=== PATIENT | female | born 1965 | race Caucasian/White ===

== ENCOUNTER → 2016-11-24 | Day surgery (SDC) | payer OTHER ==
[~2016-11-24] MED LIST: LACTATED RINGERS 1,000 ML IV ONE; SODIUM CHLORIDE 0.9% 250 ML in EMPTY BAG 1 BAG IV PRN; SODIUM CHLORIDE 0.9% 500 ML in EMPTY BAG 1 BAG IV PRN
[2016-11-24 11:04] LABS: Basophils # (A) 0.1 k/uL (0-0.2); Basophils % (A) 1 %; CH 33.4; CHCM 33.4; Eosinophils # (A) 0.3 k/uL (0-0.7); Eosinophils % (A) 5 %; HDW 2.73; HGB 17.4 gm/dL (11.4-16.0); Luc # (Auto) 0.13; Luc % (Auto) 2; Lymphocytes # (A) 2.7 k/uL (1.0-4.8); Lymphocytes % (A) 44 %; MCHC 32.9 g/dL (31.0-37.0); MCV 100.5 fL (80.0-100.0); Mean Platelet Volume 7.5; Monocytes # (A) 0.3 k/uL (0-1.0); Monocytes % (A) 4 %; Neutrophils # (A) 2.7 k/uL (1.3-7.7); Neutrophils % (A) 44 %; RBC 5.28 m/uL (3.80-5.40); RDW 13.6 % (11.5-15.5); WBC 6.1 k/uL (3.8-10.6); WBC (Perox) 6.19
[2016-11-24 11:16] LABS: ALT 55 U/L (9-52); AST 34 U/L (14-36); Alkaline Phosphatase 166 U/L (38-126); Anion Gap 10 mmol/L; Blood Urea Nitrogen 10 mg/dL (7-17); Calcium 11.8 mg/dL (8.4-10.2); Carbon Dioxide 31 mmol/L (22-30); Chloride 105 mmol/L (98-107); Glucose 98 mg/dL (74-99); Non-African American GFR(MDRD) >60 (>60 ml/min/1.73 sqM); Potassium 4.6 mmol/L (3.5-5.1); Sodium 146 mmol/L (137-145); Total Bilirubin 0.8 mg/dL (0.2-1.3); Total Protein 8.2 g/dL (6.3-8.2)
[2016-11-24 11:45] VITALS: RESP 16; TEMP 98.2
[2016-11-24 12:05] VITALS: BP 142/82; PULSE 85
--- NOTE | 2016-11-24 12:15 | P.PCN ---
Date of Procedure: 11/24/16 Preoperative Diagnosis: r/o multiple sclerosis Postoperative Diagnosis: same Anesthesia: local Surgeon: Reginaldo Cerda Pathology: none sent Condition: stable Disposition: PACU Description of Procedure: Patient was seen and examined in procedure room, history and physical completed. Indication: 51-year-old female referred by Dr. Stock for lumbar puncture due to concern for white matter changes. Patient denies any signs/symptoms of hydrocephalus and there are no fely neurologic signs or deficits. The patient was seen and identified in the preoperative area. Risks, benefits, complications, and alternatives were discussed with the patient, including but not limited to bleeding, infection, nerve damage, and headache. The patient agreed to proceed with the procedure and signed the informed consent after all questions were answered. IV was started, and vital signs were stable. The area was prepped and draped in the usual sterile fashion and localized with 1% lidocaine. Using landmarks, a 25-gauge 3.5-inch spinal needle was inserted in the L3-L4 interspace. The stylet was removed and there was free flow of CSF. 4cc of clear fluid was collected in each of 4 tubes and sent for studies as per Dr. Stock's orders. COMPLICATIONS: The patient tolerated the procedure well. There was minimal blood loss and no signs of hematoma.
[2016-11-24 14:20] LABS: ALT 54 U/L (9-52); AST 32 U/L (14-36)
[2016-11-24 14:23] LABS: Rheumatoid Factor, Qnt <9 IU/mL (<12)
[2016-11-24 14:36] LABS: Glucose,CSF 60 mg/dL (40-70)
[2016-11-24 15:35] LABS: Appearance,CSF Clear
[2016-11-24 20:57] LABS: Treponemal Ab Non-Reactive (Non-Reactive)
[2016-11-24 21:17] LABS: ANA w/Reflex to Titer NEGATIVE (NEGATIVE)
[2016-11-25 05:30] LABS: Lyme Antibodies Total(IgG/IgM) 0.13 (<0.90)
[2016-11-25 14:40] LABS: Immunoglobulin G 827 mg/dL (700 - 1600)
[2016-11-27 07:55] LABS: Lyme Specimen Source Not Provided
== END ==
LOC: PROCWHC3 11:28
PROVIDERS: ATTEND Psychiatry & Neurology Neurology
DX: R20.2 Paresthesia of skin (principal); R41.3 Other amnesia; R42 Dizziness and giddiness; R26.81 Unsteadiness on feet; E03.9 Hypothyroidism, unspecified; F41.9 Anxiety disorder, unspecified; J45.909 Unspecified asthma, uncomplicated; Z79.899 Other long term (current) drug therapy; Z88.8 Allergy status to other drugs, medicaments and biological substances
CPT/HCPCS: 36415; 62270; 80053; 82040; 82042; 82164; 82784; 82945; 83873; 83916; 84157; 84439; 84443; 84450; 84460; 85025; 85613; 85730; 85732; 86038; 86225; 86235; 86431; 86592; 86618; 86780; 87476; 88108; 89050; 96360; 96361

== ENCOUNTER → 2016-11-24 | Outpatient (CLI) | payer OTHER ==
--- NOTE | 2016-11-24 11:26 | XR ---
EXAMINATION TYPE: XR knee complete bilateral DATE OF EXAM: 11/24/2016 11:20 AM COMPARISON: NONE HISTORY: 51-year-old female arthritis, hyperthyroid, bilateral knee pain for months TECHNIQUE: 3 views each knee FINDINGS: There is mild narrowing of medial compartment joint space in the right knee. Extensor mechanisms are intact. No significant knee joint effusion on either side. There is a bone is land within the left medial femoral condyle incidentally noted. No acute fracture or dislocation. IMPRESSION: The right knee medial compartment joint space appears mildly narrowed. This could be better evaluated with an AP weightbearing view. Otherwise, no joint effusion or acute osseous abnormality seen.
== END | disposition home or self-care (01) ==
LOC: LABWHC1 10:41
PROVIDERS: ATTEND Family Medicine
DX: M17.11 Unilateral primary osteoarthritis, right knee (principal); E03.9 Hypothyroidism, unspecified

== ENCOUNTER 2017-03-02 17:57 | Inpatient (IN) | payer OTHER ==
[2017-03-02] MEDS ORDERED: SODIUM CHLORIDE 0.9% 1,000 ML IV STA (18:59)
[2017-03-02] MEDS ORDERED: MORPHINE SULFATE 2 MG/ML SYRINGE IVP STA (18:59)
[2017-03-02] MEDS ORDERED: ONDANSETRON 4 MG/2 ML VIAL IVP STA (18:59)
[2017-03-02] MEDS ORDERED: RX INFO: IV CONTRAST WAS GIVEN 1 EACH MISC MISCELLANE PRN (19:00)
--- NOTE | 2017-03-02 19:01 | ED ---
Abdominal Pain HPI <Sky Talamantes - Last Filed: 03/02/17 21:59> - General Source: patient, RN notes reviewed Mode of arrival: ambulatory Limitations: no limitations <Lili Hurtado - Last Filed: 03/02/17 22:08> - General Chief Complaint: Abdominal Pain Stated Complaint: Hernia Time Seen by Provider: 03/02/17 18:31 - History of Present Illness Initial Comments: Patient is a 51-year-old female with chief complaint of epigastric abdominal pain over her previous hernia site. Patient states she's been having this pain off and on for a year. She reports that the pain is became progressively worse over the past week. She states it is tender to palpation. She states that she can feel the hernia bulge whenever she is doing a sit up motion. She states that she thinks that is difficult to return. Patient denies any fever or chills or changes in urination or bowel movements. She reports that she feels nauseated but no vomiting. She states that she also has had some intermittent chest pain. She has a history of COPD. (Lili Hurtado) - Related Data Home Medications Medication Instructions Recorded Confirmed Albuterol Nebulized [Ventolin 2.5 mg INHALATION RT-Q4H PRN 04/21/16 03/02/17 Nebulized] Albuterol Inhaler [Ventolin Hfa 2 puff INHALATION RT-Q6H PRN 03/02/17 03/02/17 Inhaler] Desvenlafaxine Succinate [Pristiq] 50 mg PO DAILY 03/02/17 03/02/17 Levothyroxine Sodium [Synthroid] 88 mcg PO DAILY 03/02/17 03/02/17 Allergies Allergy/AdvReac Type Severity Reaction Status Date / Time prednisolone Allergy Swelling Verified 03/02/17 19:02 Review of Systems ROS Other: All systems not noted in ROS Statement are negative. <Sky Talamantes - Last Filed: 03/02/17 21:59> ROS Other: All systems not noted in ROS Statement are negative. <Lili Hurtado - Last Filed: 03/02/17 22:08> ROS Statement: Those systems with pertinent positive or pertinent negative responses have been documented in the HPI. 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 as a child Past Anesthesia/Blood Transfusion Reactions: No Reported Reaction Additional Past Anesthesia/Blood Transfusion Reaction / Comment(s): never had a blood transfusion, unknown family hx.-pt. adopted Past Psychological History: Anxiety, Depression Smoking Status: Current every day smoker Past Alcohol Use History: Rare Past Drug Use History: None Reported - Past Family History Mother Family Medical History: No Reported History Additional Family Medical History / Comment(s): Biological mother at age 33 y/o of brain aneuyrsm. Pt is adopted. <Lili Hurtado - Last Filed: 03/02/17 22:08> General Exam <Sky Talamantes - Last Filed: 03/02/17 21:59> Limitations: no limitations Head exam: Present: atraumatic, normocephalic, normal inspection Eye exam: Present: normal appearance, PERRL, EOMI. Absent: scleral icterus, conjunctival injection, periorbital swelling ENT exam: Present: normal exam, mucous membranes moist Neck exam: Present: normal inspection. Absent: tenderness, meningismus, lymphadenopathy Respiratory exam: Present: normal lung sounds bilaterally. Absent: respiratory distress, wheezes, rales, rhonchi, stridor Cardiovascular Exam: Present: regular rate, normal rhythm, normal heart sounds. Absent: systolic murmur, diastolic murmur, rubs, gallop, clicks GI/Abdominal exam: Present: soft, tenderness (Tenderness and epigastric and umbilical region. Evidence of scars from previous umbilical hernia surgery. No evidence of erythema. Hernia is palpable. It is somewhat reducible.), normal bowel sounds. Absent: distended, guarding, rebound, rigid Extremities exam: Present: normal inspection, full ROM, normal capillary refill. Absent: tenderness, pedal edema, joint swelling, calf tenderness Back exam: Present: normal inspection Neurological exam: Present: alert, oriented X3, CN II-XII intact Psychiatric exam: Present: normal affect, normal mood Skin exam: Present: warm, dry, intact, normal color. Absent: rash <Lili Hurtado - Last Filed: 03/02/17 22:08> - General Exam Comments Initial Comments: Pleasant 51-year-old female. No distress. (Lili Hurtado) Medical Decision Making - Lab Data Result diagrams: 03/02/17 19:25 03/02/17 19:25 <Sky Talamantes - Last Filed: 03/02/17 21:59> - Lab Data Result diagrams: 03/02/17 19:25 03/02/17 19:25 - Radiology Data Radiology results: report reviewed <Lili Hurtado - Last Filed: 03/02/17 22:08> - Medical Decision Making Patient reevaluated by myself, Dr. Talamantes. Patient does have mild to moderate tenderness right upper quadrant. Case discussed with Dr. Bliss who recommends calling Dr. Perales. Case was discussed with Dr. Perales who will admit and requests ultrasound. IV antibiotics will be started. (Sky Talamantes) Patient is a 51-year-old female chief complaint of right upper quadrant epigastric and umbilical abdominal pain for approximately one week. She reports that she's had umbilical pain for many months but has been much worse over the past few days. Patient lab work was reviewed. She does have a mildly elevated lipase. Patient also has some significant right upper quadrant tenderness. CT shows.: Fluid. The second patient does not have a fever does not meet sepsis criteria. Patient was started on IV antibiotics and right upper quadrant ultrasound obtained. Patient will be admitted to Dr. Perales for surgical consult. Likely patient has an acute cholecystitis. Patient understands treatment plan. (Lili Hurtado) - Lab Data Lab Results 03/02/17 03/02/17 03/02/17 Range/Units 19:25 19:25 19:25 WBC 8.4 (3.8-10.6) k/uL RBC 4.81 (3.80-5.40) m/uL Hgb 16.2 H (11.4-16.0) gm/dL Hct 47.9 H (34.0-46.0) % MCV 99.7 (80.0-100.0) fL MCH 33.6 (25.0-35.0) pg MCHC 33.7 (31.0-37.0) g/dL RDW 14.0 (11.5-15.5) % Plt Count 224 (150-450) k/uL Neutrophils % 66 % Lymphocytes % 25 % Monocytes % 4 % Eosinophils % 3 % Basophils % 2 % Neutrophils # 5.6 (1.3-7.7) k/uL Lymphocytes # 2.1 (1.0-4.8) k/uL Monocytes # 0.3 (0-1.0) k/uL Eosinophils # 0.2 (0-0.7) k/uL Basophils # 0.1 (0-0.2) k/uL Sodium 141 (137-145) mmol/L Potassium 4.5 (3.5-5.1) mmol/L Chloride 108 H (98-107) mmol/L Carbon Dioxide 26 (22-30) mmol/L Anion Gap 7 mmol/L BUN 12 (7-17) mg/dL Creatinine 0.66 (0.52-1.04) mg/dL Est GFR (MDRD) Af Amer >60 (>60 ml/min/1.73 sqM) Est GFR (MDRD) Non-Af >60 (>60 ml/min/1.73 sqM) Glucose 94 (74-99) mg/dL Calcium 11.8 H (8.4-10.2) mg/dL Total Bilirubin 0.8 (0.2-1.3) mg/dL AST 40 H (14-36) U/L ALT 39 (9-52) U/L Alkaline Phosphatase 170 H (38-126) U/L Total Creatine Kinase 36 (30-135) U/L CK-MB (CK-2) 0.9 (0.0-2.4) ng/mL CK-MB (CK-2) Rel Index 2.5 Troponin I <0.012 (0.000-0.034) ng/mL Total Protein 7.2 (6.3-8.2) g/dL Albumin 4.1 (3.5-5.0) g/dL Amylase 89 (30-110) U/L Lipase 359 H (23-300) U/L Urine Color Urine Appearance (Clear) Urine pH (5.0-8.0) Ur Specific [place] (1.001-1.035) Urine Protein (Negative) Urine Glucose (UA) (Negative) Urine Ketones (Negative) Urine Blood (Negative) Urine Nitrite (Negative) Urine Bilirubin (Negative) Urine Urobilinogen (<2.0) mg/dL Ur Leukocyte Esterase (Negative) 03/02/17 Range/Units 20:10 WBC (3.8-10.6) k/uL RBC (3.80-5.40) m/uL Hgb (11.4-16.0) gm/dL Hct (34.0-46.0) % MCV (80.0-100.0) fL MCH (25.0-35.0) pg MCHC (31.0-37.0) g/dL RDW (11.5-15.5) % Plt Count (150-450) k/uL Neutrophils % % Lymphocytes % % Monocytes % % Eosinophils % % Basophils % % Neutrophils # (1.3-7.7) k/uL Lymphocytes # (1.0-4.8) k/uL Monocytes # (0-1.0) k/uL Eosinophils # (0-0.7) k/uL Basophils # (0-0.2) k/uL Sodium (137-145) mmol/L Potassium (3.5-5.1) mmol/L Chloride (98-107) mmol/L Carbon Dioxide (22-30) mmol/L Anion Gap mmol/L BUN (7-17) mg/dL Creatinine (0.52-1.04) mg/dL Est GFR (MDRD) Af Amer (>60 ml/min/1.73 sqM) Est GFR (MDRD) Non-Af (>60 ml/min/1.73 sqM) Glucose (74-99) mg/dL Calcium (8.4-10.2) mg/dL Total Bilirubin (0.2-1.3) mg/dL AST (14-36) U/L ALT (9-52) U/L Alkaline Phosphatase (38-126) U/L Total Creatine Kinase (30-135) U/L CK-MB (CK-2) (0.0-2.4) ng/mL CK-MB (CK-2) Rel Index Troponin I (0.000-0.034) ng/mL Total Protein (6.3-8.2) g/dL Albumin (3.5-5.0) g/dL Amylase (30-110) U/L Lipase (23-300) U/L Urine Color Light Yellow Urine Appearance Clear (Clear) Urine pH 6.5 (5.0-8.0) Ur Specific [place] 1.014 (1.001-1.035) Urine Protein Negative (Negative) Urine Glucose (UA) Negative (Negative) Urine Ketones Negative (Negative) Urine Blood Negative (Negative) Urine Nitrite Negative (Negative) Urine Bilirubin Negative (Negative) Urine Urobilinogen <2.0 (<2.0) mg/dL Ur Leukocyte Esterase Negative (Negative) 03/02/17 19:16 EKG shows normal sinus rhythm. Evidence of a right bundle-branch block. Ventricular rate 87 bpm. FL interval 1:30 milliseconds. QRS duration 122 ms. QT/QTc is 46/48 ms. No evidence of ST elevation or T-wave inversion. ( Lili Hurtado) - Radiology Data There is mild. Cholecystic fluid but could relate to cholecystitis. No dilated ducts. No evidence of renal stone or obstruction. The fluid around the gallbladder is new compared to old exam. Mild sigmoid diverticulosis without diverticulitis. (Lili Hurtado) Disposition <Sky Talamantes - Last Filed: 03/02/17 21:59> Time of Disposition: 22:07 <Lili Hurtado - Last Filed: 03/02/17 22:08> Clinical Impression: RUQ pain Disposition: ADMITTED IP TO THIS HOSP Condition: Stable
[2017-03-02 19:33] LABS: Basophils # (A) 0.1 k/uL (0-0.2); Basophils % (A) 2 %; CH 33.9; CHCM 34.2; Eosinophils # (A) 0.2 k/uL (0-0.7); Eosinophils % (A) 3 %; HCT 47.9 % (34.0-46.0); HGB 16.2 gm/dL (11.4-16.0); Luc # (Auto) 0.09; Luc % (Auto) 1; Lymphocytes # (A) 2.1 k/uL (1.0-4.8); Lymphocytes % (A) 25 %; MCH 33.6 pg (25.0-35.0); MCHC 33.7 g/dL (31.0-37.0); MCV 99.7 fL (80.0-100.0); Mean Platelet Volume 7.6; Monocytes # (A) 0.3 k/uL (0-1.0); Monocytes % (A) 4 %; Neutrophils # (A) 5.6 k/uL (1.3-7.7); Neutrophils % (A) 66 %; RBC 4.81 m/uL (3.80-5.40); WBC 8.4 k/uL (3.8-10.6)
--- NOTE | 2017-03-02 19:42 | XR ---
EXAMINATION TYPE: XR KUB DATE OF EXAM: 03/02/2017 7:36 PM COMPARISON: NONE HISTORY: Abdominal pain TECHNIQUE: 2 views FINDINGS: Bowel gas pattern is normal. There is no sign of intestinal obstruction or pneumoperitoneum . Fecal pattern is normal. IMPRESSION: Nonacute abdomen. No pathologic calcification.
[2017-03-02 19:43] LABS: ALT 39 U/L (9-52); AST 40 U/L (14-36); Alkaline Phosphatase 170 U/L (38-126); Amylase 89 U/L (30-110); Anion Gap 7 mmol/L; Blood Urea Nitrogen 12 mg/dL (7-17); Calcium 11.8 mg/dL (8.4-10.2); Carbon Dioxide 26 mmol/L (22-30); Chloride 108 mmol/L (98-107); Glucose 94 mg/dL (74-99); Non-African American GFR(MDRD) >60 (>60 ml/min/1.73 sqM); Potassium 4.5 mmol/L (3.5-5.1); Sodium 141 mmol/L (137-145); Total Bilirubin 0.8 mg/dL (0.2-1.3); Total Protein 7.2 g/dL (6.3-8.2)
--- NOTE | 2017-03-02 19:43 | XR ---
EXAMINATION TYPE: XR chest 2V DATE OF EXAM: 03/02/2017 7:36 PM COMPARISON: 03/15/2016 HISTORY: Cough TECHNIQUE: Frontal and lateral views of the chest are obtained. FINDINGS: There is no heart failure nor confluent pneumonic infiltrate. There are sternal wires. Cos tophrenic angles are clear. Bony thorax appears intact. IMPRESSION: No active cardiopulmonary disease. There is clearing of atelectasis in the left lung com pared to old exam.
[2017-03-02 20:02] LABS: Creatine Kinase 36 U/L (30-135)
[2017-03-02 20:15] LABS: Creatine Kinase MB 0.9 ng/mL (0.0-2.4); Troponin I <0.012 ng/mL (0.000-0.034)
[2017-03-02 20:26] LABS: Appearance,Urine Clear (Clear); Bilirubin,Urine Negative (Negative); Glucose,Urine (UA) Negative (Negative); Ketones,Urine Negative (Negative); Leukocyte Esterase,Urine Negative (Negative); Nitrite,Urine Negative (Negative); PH, Urine 6.5 (5.0-8.0); Protein,Urine Negative (Negative); Specific Gravity,Urine 1.014 (1.001-1.035); UA Billing (MACRO vs. MICRO) CHEM; Urobilinogen,Urine <2.0 mg/dL (<2.0)
--- NOTE | 2017-03-02 20:40 | CT ---
EXAMINATION TYPE: CT abdomen pelvis w con DATE OF EXAM: 03/02/2017 8:08 PM COMPARISON: 10/07/2016 HISTORY: abdominal pain, hx of hernia CT DLP: 535.6 mGycm Automated exposure control for dose reduction was used. TECHNIQUE: Helical acquisition of images was performed from the lung bases through the pelvis. CONTRAST: Performed without Oral Contrast and with IV Contrast, patient injected with 100 mL of Omnipaque 300. FINDINGS: Lung bases are clear. There is no pleural effusion. There is a small amount of fluid around the gallb ladder. Liver spleen pancreas appear normal. Bile ducts are not dilated. There is no adrenal mass. Kidneys show satisfactory contrast opacification. There is no hydronephrosi s. There are multiple sigmoid diverticula. There is no evidence of appendicitis. Bladder distends smoothly. There is no evidence of a pelvic mass. Bony structures are intact.. IMPRESSION: THERE IS MILD PERICHOLECYSTIC FLUID BUT COULD RELATE TO CHOLECYSTITIS. NO DILATED DUCTS. NO EVIDENCE OF RENAL STONE OR OBSTRUCTION. THE FLUID AROUND THE GALLBLADDER IS NEW COMPARED TO OLD EXAM. MILD SIGMOID DIVERTICULOSIS WITHOUT SIGN OF DIVERTICULITIS.
[2017-03-02] MEDS ORDERED: PIPERACILLIN-TAZOBACTAM 3.375 GM in DEXTROSE/WATER 1 50ML.BAG IVPB STA (22:00)
[2017-03-02] MEDS ORDERED: NALOXONE 0.4 MG/ML 1 ML VIAL IV PRN (22:01)
[2017-03-02] MEDS: SODIUM CHLORIDE 0.9% 1,000 ML IV SCH (22:12)
[2017-03-02] MEDS: HYDROmorphone 1 MG/ML 1 ML SYRINGE IV PRN (22:14)
--- NOTE | 2017-03-02 22:44 | US ---
EXAMINATION TYPE: US gallbladder DATE OF EXAM: 03/02/2017 10:32 PM COMPARISON: CT in PACS CLINICAL HISTORY: Pain. EXAM MEASUREMENTS: Liver Length: 15.8 cm Gallbladder Wall: 0.5 cm CBD: 0.4 cm Right Kidney: 10.3 x 3.9 x 4.1 cm Pancreas: Obscured by bowel gas Liver: wnl Gallbladder: Wall is thickened with some pericholecystic fluid visualized. There is a stone visualiz ed within the neck of the gallbladder measuring 0.5 cm. There is also a small amount of possible slud ge visualized on image 39 Evidence for sonographic Garcia's sign: No CBD: wnl Right Kidney: No hydronephrosis or masses seen IMPRESSION: There is gallbladder wall thickening consistent with cholecystitis. Small gallstones. No dilated ducts.
[2017-03-03] MEDS: HYDROmorphone 1 MG/ML 1 ML SYRINGE IV PRN ×3 (05:34→19:18)
[2017-03-03] MEDS: LEVOTHYROXINE 88 MCG TAB PO SCH (05:53)
[2017-03-03] MEDS: DESVENLAFAXINE SUCCINATE 50 MG TAB.ER.24H PO SCH (08:24)
[2017-03-03 08:36] LABS: Basophils # (A) 0.1 k/uL (0-0.2); Basophils % (A) 0 %; CH 33.3; CHCM 32.4; Eosinophils # (A) 0.2 k/uL (0-0.7); Eosinophils % (A) 1 %; HGB 15.4 gm/dL (11.4-16.0); Luc # (Auto) 0.07; Luc % (Auto) 1; Lymphocytes # (A) 0.9 k/uL (1.0-4.8); Lymphocytes % (A) 6 %; MCH 33.2 pg (25.0-35.0); MCHC 32.1 g/dL (31.0-37.0); MCV 103.5 fL (80.0-100.0); Macrocytosis Slight; Mean Platelet Volume 7.5; Monocytes # (A) 0.3 k/uL (0-1.0); Monocytes % (A) 2 %; Neutrophils % (A) 90 %; RBC 4.64 m/uL (3.80-5.40); RDW 14.1 % (11.5-15.5); WBC 14.4 k/uL (3.8-10.6)
[2017-03-03 08:52] LABS: ALT 36 U/L (9-52); AST 20 U/L (14-36); Alkaline Phosphatase 176 U/L (38-126); Amylase 64 U/L (30-110); Anion Gap 7 mmol/L; Blood Urea Nitrogen 7 mg/dL (7-17); Calcium 10.5 mg/dL (8.4-10.2); Carbon Dioxide 27 mmol/L (22-30); Chloride 108 mmol/L (98-107); Glucose 142 mg/dL (74-99); Non-African American GFR(MDRD) >60 (>60 ml/min/1.73 sqM); Potassium 4.6 mmol/L (3.5-5.1); Sodium 142 mmol/L (137-145); Total Bilirubin 0.7 mg/dL (0.2-1.3); Total Protein 6.8 g/dL (6.3-8.2)
[2017-03-03] MEDS: PANTOPRAZOLE 40 MG/10 ML VIAL IV SCH (09:09)
[2017-03-03] MEDS: ALBUTEROL NEBULIZED 2.5 MG/3 ML INHALATION PRN ×2 (13:57→22:02)
--- NOTE | 2017-03-03 14:11 | P.PN ---
Progress Note - Text Patient was unavailable for medical consultation, issues in the OR for laparoscopic cholecystectomy. I will evaluate her as soon as possible and will remain in contact with the nurses regarding her medical status.
--- NOTE | 2017-03-03 14:16 | P.GSHP ---
History of Present Illness H&P Date: 03/03/17 Chief Complaint: Acute cholecystitis Patient came to the ER yesterday with complaints of upper abdominal pain. This is associated with anorexia nausea and intermittent vomiting. She was found have elevated lipase and elevated liver enzymes these are improved today. Her white blood cell count is elevated today. She has a low-grade fever. She is slightly tachycardic. She had a chest x-ray performed that was normal. She doesn't history of underlying COPD and has a home nebulizer. She has had a chronic cough with some sputum production. She still smokes. No history of pancreatitis in the past. Denies any change in the color of her skin urine and stool. She does point to a small incisional hernia in the supraumbilical location and states that she has chronic discomfort there. She admits that the pain she is extrinsic now was more diffuse in the upper abdomen. No diarrhea or constipation. No rectal bleeding or melena. CAT scan was performed which shows a slightly indurated incisional hernia in the supraumbilical location this is small with a defect measuring only about 1 cm in size or so. The gallbladder itself appears inflamed with some pericholecystic fluid. An ultrasound was also performed which showed gallstones and also a thickened gallbladder wall. Pain is nonradiating. 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 as a child Past Anesthesia/Blood Transfusion Reactions: No Reported Reaction Additional Past Anesthesia/Blood Transfusion Reaction / Comment(s): never had a blood transfusion, unknown family hx.-pt. adopted Past Psychological History: Anxiety, Depression Smoking Status: Current every day smoker Past Alcohol Use History: Rare Past Drug Use History: None Reported - Past Family History Mother Family Medical History: No Reported History Additional Family Medical History / Comment(s): Biological mother at age 33 y/o of brain aneuyrsm. Pt is adopted. Medications and Allergies Home Medications Medication Instructions Recorded Confirmed Type Albuterol Nebulized [Ventolin 2.5 mg INHALATION RT-Q4H PRN 04/21/16 03/02/17 History Nebulized] Albuterol Inhaler [Ventolin Hfa 2 puff INHALATION RT-Q6H PRN 03/02/17 03/02/17 History Inhaler] Desvenlafaxine Succinate [Pristiq] 50 mg PO DAILY 03/02/17 03/02/17 History Levothyroxine Sodium [Synthroid] 88 mcg PO DAILY 03/02/17 03/02/17 History Allergies Allergy/AdvReac Type Severity Reaction Status Date / Time prednisolone Allergy Swelling Verified 03/02/17 19:02 Surgical - Exam Vital Signs Temp Pulse Resp BP Pulse Ox 97.7 F 105 H 18 170/83 97 03/02/17 18:10 03/02/17 18:10 03/02/17 18:10 03/02/17 18:10 03/02/17 18:10 Physical exam: General: Well-developed, well-nourished HEENT: Normocephalic, sclerae nonicteric Abdomen: Slightly obese, nondistended, small reducible supra umbilical incisional hernia, moderate upper abdominal tenderness Extremities: No edema Neuro: Alert and oriented Results - Labs 03/03/17 08:21 03/03/17 08:21 Abnormal Lab Results - Last 24 Hours (Table) 03/03/17 03/03/17 Range/Units 08:21 08:21 WBC 14.4 H (3.8-10.6) k/uL Hct 48.0 H (34.0-46.0) % MCV 103.5 H (80.0-100.0) fL Neutrophils # 13.0 H (1.3-7.7) k/uL Lymphocytes # 0.9 L (1.0-4.8) k/uL Chloride 108 H (98-107) mmol/L Glucose 142 H (74-99) mg/dL Calcium 10.5 H (8.4-10.2) mg/dL Alkaline Phosphatase 176 H (38-126) U/L Diabetes panel 03/03/17 Range/Units 08:21 Sodium 142 (137-145) mmol/L Potassium 4.6 (3.5-5.1) mmol/L Chloride 108 H (98-107) mmol/L Carbon Dioxide 27 (22-30) mmol/L BUN 7 (7-17) mg/dL Creatinine 0.67 (0.52-1.04) mg/dL Glucose 142 H (74-99) mg/dL Calcium 10.5 H (8.4-10.2) mg/dL AST 20 (14-36) U/L ALT 36 (9-52) U/L Alkaline Phosphatase 176 H (38-126) U/L Total Protein 6.8 (6.3-8.2) g/dL Albumin 3.9 (3.5-5.0) g/dL Calcium panel 03/03/17 Range/Units 08:21 Calcium 10.5 H (8.4-10.2) mg/dL Albumin 3.9 (3.5-5.0) g/dL Pituitary panel 03/03/17 Range/Units 08:21 Sodium 142 (137-145) mmol/L Potassium 4.6 (3.5-5.1) mmol/L Chloride 108 H (98-107) mmol/L Carbon Dioxide 27 (22-30) mmol/L BUN 7 (7-17) mg/dL Creatinine 0.67 (0.52-1.04) mg/dL Glucose 142 H (74-99) mg/dL Calcium 10.5 H (8.4-10.2) mg/dL Adrenal panel 03/03/17 Range/Units 08:21 Sodium 142 (137-145) mmol/L Potassium 4.6 (3.5-5.1) mmol/L Chloride 108 H (98-107) mmol/L Carbon Dioxide 27 (22-30) mmol/L BUN 7 (7-17) mg/dL Creatinine 0.67 (0.52-1.04) mg/dL Glucose 142 H (74-99) mg/dL Calcium 10.5 H (8.4-10.2) mg/dL Total Bilirubin 0.7 (0.2-1.3) mg/dL AST 20 (14-36) U/L ALT 36 (9-52) U/L Alkaline Phosphatase 176 H (38-126) U/L Total Protein 6.8 (6.3-8.2) g/dL Albumin 3.9 (3.5-5.0) g/dL Assessment and Plan (1) RUQ pain Narrative/Plan: Clinical scenario and the operative plans were discussed with the patient and her significant other heralded by phone. The patient does have a cough with sputum production however her chest x-ray appears clear. Her pain does seem worse today than yesterday and now she has leukocytosis. The risks of general anesthesia with her chronic cough and the potential for postoperative respiratory failure or postoperative ventilatory support was discussed. The additional risks of bleeding, infection, hernia recurrence, bile leak, retained common bile duct stone, common bile duct injury, conversion to an open procedure were discussed. She and her significant other both understand and wish to proceed. Status: Acute
[2017-03-03] MEDS ORDERED: IV FLUID CONTINUATION 1,000 ML IV ONE (14:20)
[2017-03-03] MEDS ORDERED: fentaNYL (PF) 50 MCG/ML 2 ML AMP ONE (14:24)
[2017-03-03] MEDS ORDERED: SUCCINYLCHOLINE CHLORIDE 100 MG/5 ML SYR IV ONE (14:24)
[2017-03-03] MEDS ORDERED: LIDOCAINE 1% INJ 10MG/ML (20 ML MDV) ONE (14:24)
[2017-03-03] MEDS ORDERED: MIDAZOLAM 2 MG/2 ML VIAL ONE (14:24)
[2017-03-03] MEDS ORDERED: PROPOFOL 10 MG/ML 20 ML VIAL IV ONE (14:24)
[2017-03-03] MEDS ORDERED: NEOSTIGMINE 1 MG/ML 10 ML VIAL ONE (14:24)
[2017-03-03] MEDS ORDERED: LACTATED RINGERS 1,000 ML IV ONE ×2 (14:24→16:23)
[2017-03-03] MEDS ORDERED: GLYCOPYRROLATE 0.2 MG/ML 2 ML VIAL ONE (14:24)
[2017-03-03] MEDS ORDERED: ROCURONIUM BROMIDE 10 MG/ML 10 ML VIAL IV ONE (14:24)
[2017-03-03] MEDS ORDERED: BUPIVACAIN-EPI 0.25%-1:200,000 30 ML VIAL SQ ONE ×2 (14:46)
--- NOTE | 2017-03-03 16:09 | P.PCN ---
Date of Procedure: 03/03/17 Procedure(s) Performed: PREOPERATIVE DIAGNOSIS: Incisional hernia, acute cholecystitis POSTOPERATIVE DIAGNOSIS: Same PROCEDURE: Laparoscopic cholecystectomy with repair incisional hernia SURGEON: Della EBL: Minimal see anesthesia record ANESTHESIA: Gen. COMPLICATIONS: None OPERATIVE PROCEDURE: The patient was brought and placed on the operating room table in the supine position. The patient was placed under general anesthesia at that time. The abdomen was prepped and draped in the usual sterile fashion. The previous supraumbilical horizontal incision was re-incised and extended somewhat. Dissection through the subcutaneous tissues took place using blunt dissection and cautery. The patient had a defect in the fascia with a small hernia sac present. The hernia sac was excised. The defect in the fascia measured approximately 6-7 mm in diameter. Through this defect a 5 mm trocar was advanced bluntly. Insufflation took place up to 15 mmHg. 2 additional 5 mm trochars were placed in the right upper quadrant under direct visualization. A 12 mm trocar was advanced into the epigastric incision site. The gallbladder did appear to be acutely inflamed with a thickened wall. The gallbladder was retracted superiorly and laterally. The peritoneum overlying the infundibulum was bluntly dissected. The patient's cystic duct was visualized. The junction between the cystic duct common and hepatic duct was identified. The cystic duct was then divided after placement of 3 12 mm clips on the patient's side and one on the specimen side. The cystic artery was identified and clipped as well. A small vessel was seen along the gallbladder fossa and clipped as well. The gallbladder was then removed from the liver bed using electrocautery. The gallbladder was then removed from the epigastric trocar site with an Endo Catch bag. The gallbladder fossa was irrigated with saline. There was no evidence of any bleeding or biliary drainage seen. The trochars were then removed. The fascia at the 12 millimeter site was closed using a [id number] 0 Vicryl stitch. The fascia at the incisional hernia site was closed using a [id number] 1 Ethibond stitch. The skin at all 4 sites was closed using a 4-0 Monocryl stitch. At the end of this procedure the sponge and needle counts were correct. DISPOSITION: Stable to the recovery room
[2017-03-03] MEDS: PIPERACILLIN-TAZOBACTAM 3.375 GM in DEXTROSE/WATER 1 50ML.BAG IVPB SCH ×2 (17:15→23:32)
[2017-03-03] MEDS: HYDROcodone/APAP 5-325MG 1 EACH TAB PO PRN ×2 (17:15→21:47)
[2017-03-03] MEDS: SODIUM CHLORIDE 0.9% 1,000 ML IV SCH ×2 (18:06→20:30)
[2017-03-03] MEDS: HEPARIN SODIUM,PORCINE 5,000 UNIT/ML 1 ML VIAL SQ SCH (23:32)
[2017-03-04] MEDS: HYDROcodone/APAP 5-325MG 1 EACH TAB PO PRN ×4 (03:15→21:00)
[2017-03-04] MEDS: SODIUM CHLORIDE 0.9% 1,000 ML IV SCH ×2 (03:17→14:58)
[2017-03-04] MEDS: ALBUTEROL NEBULIZED 2.5 MG/3 ML INHALATION PRN (07:14)
[2017-03-04 07:17] LABS: ALT 34 U/L (9-52); AST 25 U/L (14-36); Alkaline Phosphatase 128 U/L (38-126); Amylase 43 U/L (30-110); Anion Gap 8 mmol/L; Blood Urea Nitrogen 5 mg/dL (7-17); Calcium 10.5 mg/dL (8.4-10.2); Carbon Dioxide 25 mmol/L (22-30); Chloride 107 mmol/L (98-107); Glucose 93 mg/dL (74-99); Non-African American GFR(MDRD) >60 (>60 ml/min/1.73 sqM); Potassium 4.1 mmol/L (3.5-5.1); Sodium 140 mmol/L (137-145); Total Bilirubin 0.8 mg/dL (0.2-1.3); Total Protein 5.9 g/dL (6.3-8.2)
[2017-03-04] MEDS: LEVOTHYROXINE 88 MCG TAB PO SCH (07:38)
[2017-03-04 07:55] LABS: Basophils % (A) 1 %; CH 33.2; CHCM 33.1; Eosinophils # (A) 0.1 k/uL (0-0.7); Eosinophils % (A) 1 %; HCT 39.8 % (34.0-46.0); HDW 2.91; HGB 13.4 gm/dL (11.4-16.0); Luc # (Auto) 0.11; Luc % (Auto) 1; Lymphocytes # (A) 0.7 k/uL (1.0-4.8); Lymphocytes % (A) 8 %; MCH 34.1 pg (25.0-35.0); MCHC 33.7 g/dL (31.0-37.0); MCV 101.1 fL (80.0-100.0); Macrocytosis Slight; Mean Platelet Volume 7.8; Monocytes # (A) 0.4 k/uL (0-1.0); Monocytes % (A) 4 %; Neutrophils # (A) 7.2 k/uL (1.3-7.7); Neutrophils % (A) 85 %; RBC 3.94 m/uL (3.80-5.40); RDW 13.6 % (11.5-15.5); WBC 8.5 k/uL (3.8-10.6); WBC (Perox) 9.84
[2017-03-04 08:21] LABS: Manual Review Performed; RBC Morphology Normal
[2017-03-04] MEDS: HEPARIN SODIUM,PORCINE 5,000 UNIT/ML 1 ML VIAL SQ SCH ×2 (08:28→15:05)
[2017-03-04] MEDS: PIPERACILLIN-TAZOBACTAM 3.375 GM in DEXTROSE/WATER 1 50ML.BAG IVPB SCH ×2 (08:28→15:04)
[2017-03-04] MEDS: DESVENLAFAXINE SUCCINATE 50 MG TAB.ER.24H PO SCH (08:29)
[2017-03-04] MEDS: PANTOPRAZOLE 40 MG/10 ML VIAL IV SCH (08:29)
[2017-03-04] MEDS ORDERED: IPRATROPIUM-ALBUTEROL 3 ML NEB INHALATION SCH (12:00)
--- NOTE | 2017-03-04 12:30 | P.CNPUL ---
History of Present Illness Consult date: 03/04/17 Requesting physician: Sameer Bliss Reason for consult: COPD Chief complaint: Abdominal pain History of present illness: This is a 51-year-old female patient who follows with Dr. Bliss as her primary care physician. She has a history of fibromyalgia, hyperlipidemia, osteoarthritis, PFO that was repaired at age 6. She also has a history of chronic and ongoing tobacco dependence and chronic obstructive pulmonary disease. She is maintained on albuterol HFA and albuterol nebulized treatments. No maintenance medications. She presented here on 03/02/2017 with complaints of abdominal pain. She was found to have an incisional hernia from previous surgery and acute cholecystitis. She had undergone a laparoscopic cholecystectomy with repair of incisional hernia by Dr. Hull yesterday. She had been recovering well from the surgical standpoint however she had developed increasing shortness of breath, cough and congestion some expiratory wheezing. She needed increased encouragement regarding the use of the incentive spirometer. She had been refusing breathing treatments secondary to a headache this morning. She is seen today in consultation. She is awake and alert in no acute distress. She is maintaining O2 saturations in the low 90s on room air. Is currently on 2 L/m per nasal cannula with improved saturations. She's been afebrile. No leukocytosis. Hemoglobin is stable. Bicarb 25. Initial chest x- ray revealed no active cardiopulmonary disease. Review of Systems 14 point review of system was conducted. All negative other than as mentioned in HPI. 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 as a child Past Anesthesia/Blood Transfusion Reactions: No Reported Reaction Additional Past Anesthesia/Blood Transfusion Reaction / Comment(s): never had a blood transfusion, unknown family hx.-pt. adopted Past Psychological History: Anxiety, Depression Smoking Status: Current every day smoker Past Alcohol Use History: Rare Past Drug Use History: None Reported - Past Family History Mother Family Medical History: No Reported History Additional Family Medical History / Comment(s): Biological mother at age 33 y/o of brain aneuyrsm. Pt is adopted. Medications and Allergies Home Medications Medication Instructions Recorded Confirmed Type Albuterol Nebulized [Ventolin 2.5 mg INHALATION RT-Q4H PRN 04/21/16 03/02/17 History Nebulized] Albuterol Inhaler [Ventolin Hfa 2 puff INHALATION RT-Q6H PRN 03/02/17 03/02/17 History Inhaler] Desvenlafaxine Succinate [Pristiq] 50 mg PO DAILY 03/02/17 03/02/17 History Levothyroxine Sodium [Synthroid] 88 mcg PO DAILY 03/02/17 03/02/17 History Allergies Allergy/AdvReac Type Severity Reaction Status Date / Time prednisolone Allergy Swelling Verified 03/02/17 19:02 Physical Exam Vitals: Vital Signs Temp Pulse Pulse Pulse Resp BP Pulse Ox 03/04/17 11:17 71 03/04/17 11:09 90 L 03/04/17 11:07 71 03/04/17 08:00 92 89 16 03/04/17 07:23 88 03/04/17 07:14 88 96 03/04/17 07:00 98.1 F 92 16 95 03/04/17 01:18 98.2 F 89 16 112/67 96 03/03/17 22:15 94 03/03/17 22:02 94 03/03/17 19:21 98.9 F 98 17 109/75 92 L 03/03/17 19:18 17 03/03/17 16:52 100 03/03/17 16:25 102 H 20 126/71 95 03/03/17 16:10 92 16 132/76 94 L 03/03/17 15:55 88 16 125/75 95 03/03/17 15:40 98 F 90 20 139/78 98 03/03/17 14:08 104 H 03/03/17 14:00 101 H 03/03/17 12:31 100.7 F H 112 H 18 113/73 90 L Intake and Output 03/03/17 03/04/17 03/04/17 22:59 06:59 14:59 Intake Total 150 Output Total 15 Balance 135 Intake: IV 150 Output: Estimated Blood Loss 15 Other: Voiding Method Toilet Toilet Bedside Commode Bedside Commode # Voids 1 1 1 Weight 62.596 kg Patient Weight 03/05/17 06:59 Weight 62.596 kg GENERAL EXAM: Alert, fairly comfortable in no apparent distress. Headaches. HEAD: Normocephalic. EYES: Normal reaction of pupils, equal size. NOSE: Clear with pink turbinates. THROAT: No erythema or exudates. NECK: No masses, no JVD. CHEST: No chest wall deformity. LUNGS: Equal air entry with no crackles, wheeze, rhonchi or dullness. CVS: S1 and S2 normal with no audible mumurs, regular rhythm. ABDOMEN: Surgical sites clean and dry. Abdomen soft, slightly tender to palpation. SPINE: No scoliosis or deformity SKIN: No rashes CENTRAL NERVOUS SYSTEM: No focal deficits, tone is normal in all 4 extremities. Extremities: There is no significant peripheral edema. No clubbing, no cyanosis. Peripheral pulses are intact. Results - Laboratory Findings CBC and BMP: 03/04/17 06:37 03/04/17 06:37 Abnormal lab findings: Abnormal Labs 03/03/17 03/03/17 03/04/17 08:21 08:21 06:37 WBC 14.4 H Hct 48.0 H MCV 103.5 H 101.1 H Neutrophils # 13.0 H Lymphocytes # 0.9 L 0.7 L Chloride 108 H BUN Glucose 142 H Calcium 10.5 H Alkaline Phosphatase 176 H Total Protein Albumin 03/04/17 06:37 WBC Hct MCV Neutrophils # Lymphocytes # Chloride BUN 5 L Glucose Calcium 10.5 H Alkaline Phosphatase 128 H Total Protein 5.9 L Albumin 3.2 L - Diagnostic Findings Chest x-ray: image reviewed Assessment and Plan Plan: Impression: #1 Acute cholecystitis status post laparoscopic cholecystectomy and repair of incisional hernia. #2 Acute exacerbation of chronic obstructive pulmonary disease. #3 Chronic and ongoing tobacco dependence. #4 Migraines. #5 History of anxiety/depression. #6 Hyperlipidemia. #7 Fibromyalgia. #8 Osteoarthritis. Plan: The patient was seen and evaluated by Dr. Zavaleta. She is placed on DuoNeb inhalations 4 times a day and when necessary, added Symbicort. We'll avoid IV and oral steroids if possible while healing from her surgery. She is on antibiotics in the form of Zosyn. We'll continue heparin for PE/DVT prophylaxis. Continue IV Protonix for GI prophylaxis. We've encouraged increased use of the incentive spirometer and cough and deep breathing exercises. She has been educated regarding the importance of complete smoking cessation. We will increase her activity as tolerated. We'll repeat a chest x- ray in the a.m. We'll continue to follow. Time with Patient: Greater than 30
[2017-03-04] MEDS ORDERED: TIOTROPIUM 18 MCG/PUFF INHALER INHALATION STA (12:49)
--- NOTE | 2017-03-04 12:49 | P.CONS ---
History of Present Illness - Reason for Consult Consult date: 03/04/17 Management of COPD - History of Present Illness Patient came to the ER yesterday with complaints of upper abdominal pain. Been going on several days. Became too severe for her to manage. She been had decreasing appetite and episodic nausea and vomiting. He was admitted to general surgery for abnormal liver function today's amylase and lipase and suspected cholecystitis. She underwent a lap scopic cholecystectomy one day ago. She smokes a pack a day plus. She has underlying COPD. She currently is complaining of a headache and some wheeze. She are to has DuoNeb and Symbicort order for her. She currently complains that the headache is worsened by the breathing treatment. 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 as a child Past Anesthesia/Blood Transfusion Reactions: No Reported Reaction Additional Past Anesthesia/Blood Transfusion Reaction / Comm: never had a blood transfusion, unknown family hx.-pt. adopted Past Psychological History: Anxiety, Depression Smoking Status: Current every day smoker Past Alcohol Use History: Rare Past Drug Use History: None Reported - Past Family History Mother Family Medical History: No Reported History Additional Family Medical History / Comment(s): Biological mother at age 33 y/o of brain aneuyrsm. Pt is adopted. Medications and Allergies Home Medications Medication Instructions Recorded Confirmed Type Albuterol Nebulized [Ventolin 2.5 mg INHALATION RT-Q4H PRN 04/21/03/02/17 History Nebulized] Albuterol Inhaler [Ventolin Hfa 2 puff INHALATION RT-Q6H PRN 03/02/17 03/02/17 History Inhaler] Desvenlafaxine Succinate [Pristiq] 50 mg PO DAILY 03/02/17 03/02/17 History Levothyroxine Sodium [Synthroid] 88 mcg PO DAILY 03/02/17 03/02/17 History Allergies Allergy/AdvReac Type Severity Reaction Status Date / Time prednisolone Allergy Swelling Verified 03/02/17 19:02 Physical Exam Vitals: Vital Signs Temp Pulse Pulse Pulse Resp BP Pulse Ox 03/04/17 11:17 71 03/04/17 11:09 90 L 03/04/17 11:07 71 03/04/17 08:00 92 89 16 03/04/17 07:23 88 03/04/17 07:14 88 96 03/04/17 07:00 98.1 F 92 16 95 03/04/17 01:18 98.2 F 89 16 112/67 96 03/03/17 22:15 94 03/03/17 22:02 94 03/03/17 19:21 98.9 F 98 17 109/75 92 L 03/03/17 19:18 17 03/03/17 16:52 100 03/03/17 16:25 102 H 20 126/71 95 03/03/17 16:10 92 16 132/76 94 L 03/03/17 15:55 88 16 125/75 95 03/03/17 15:40 98 F 90 20 139/78 98 03/03/17 14:08 104 H 03/03/17 14:00 101 H Intake and Output 03/03/17 03/04/17 03/04/17 22:59 06:59 14:59 Intake Total 150 Output Total 15 Balance 135 Intake: IV 150 Output: Estimated Blood Loss 15 Other: Voiding Method Toilet Toilet Bedside Commode Bedside Commode # Voids 1 1 1 Weight 62.596 kg Patient Weight 03/05/17 06:59 Weight 62.596 kg GENERAL: Grimacing and in obvious pain or headache HEAD: Atraumatic, normocephalic. EYES: Pupils equal round and reactive to light, extraocular movements intact, sclera anicteric, conjunctiva are normal. ENT:nares patent, oropharynx clear without exudates. Moist mucous membranes. NECK: Normal range of motion, supple without lymphadenopathy or JVD, no thyromegaly LUNGS: Breath sounds show bilateral inspiratory wheezes, there are mild/ moderate quality. HEART: Regular rate and rhythm without murmurs, rubs or gallops.S1S2 Normal ABDOMEN: Soft, has a bowel sounds, further exam was deferred due to recent surgery. EXTREMITIES: Normal range of motion, no pitting or edema. No clubbing or cyanosis. NEUROLOGICAL: Cranial nerves II through XII grossly intact. Normal speech, normal gait. PSYCH: Normal mood, normal affect. SKIN: Warm, Dry, normal turgor, no rashes or lesions noted. Results CBC & Chem 7: 03/04/17 06:37 03/04/17 06:37 Labs: Abnormal Lab Results - Last 24 Hours (Table) 03/04/17 03/04/17 Range/Units 06:37 06:37 MCV 101.1 H (80.0-100.0) fL Lymphocytes # 0.7 L (1.0-4.8) k/uL BUN 5 L (7-17) mg/dL Calcium 10.5 H (8.4-10.2) mg/dL Alkaline Phosphatase 128 H (38-126) U/L Total Protein 5.9 L (6.3-8.2) g/dL Albumin 3.2 L (3.5-5.0) g/dL Chest x-ray: report reviewed Assessment and Plan Plan: Acute cholecystitis, status post left Cholecystectomy, postop day one: She remains under the care of a general surgery. She seemed to be improved. Acute COPD: We'll repeat a chest x-ray, we'll continue her Symbicort, I'll change her to Xopenex updrafts, I'll add Mucinex and some Flonase nasal spray. Fibromyalgia: She'll continue on Pristiq Hypothyroidism: She'll continue on Synthroid 88 g daily. Hyperlipidemia: Review her liver function tests and lipids outpatient DVT prophylaxis: Early and frequent ambulation GI prophylaxis: She continues on pantoprazole. Headache: She has Combs ordered for pain Thank you allowing me to participate her care, we'll reevaluate her lung functions in 1 day and follow her up outpatient once discharged.
--- NOTE | 2017-03-04 14:24 | P.PN ---
Subjective Principal diagnosis: Acute cholecystitis Patient seems more alert today. Pain is improved she states. Her white blood cell count was normal. Her liver enzymes amylase and lipase are also normal. She is tolerating liquids at this time. Objective - Vital Signs Vital signs: Vital Signs Temp 98.1 F 03/04/17 07:00 Pulse 71 03/04/17 11:17 Resp 16 03/04/17 08:00 BP 112/67 03/04/17 01:18 Pulse Ox 90 L 03/04/17 11:09 Intake & Output 03/03/17 03/04/17 03/04/17 18:59 06:59 18:59 Intake Total 1200 500 Output Total 15 Balance 1185 500 Weight 62.596 kg 62.596 kg Intake: IV 1200 500 Sodium Chloride 0.9% 1, 500 000 ml @ 100 mls/hr IV . Q10H [facility] Rx#:[id number] Oral 0 Output: Estimated Blood Loss 15 Other: Voiding Method Toilet Toilet Bedside Commode Bedside Commode # Voids 1 1 - Exam Abdomen: Soft, mild incisional tenderness, nondistended - Labs CBC & Chem 7: 03/04/17 06:37 03/04/17 06:37 Labs: Abnormal Lab Results - Last 24 Hours (Table) 03/04/17 03/04/17 Range/Units 06:37 06:37 MCV 101.1 H (80.0-100.0) fL Lymphocytes # 0.7 L (1.0-4.8) k/uL BUN 5 L (7-17) mg/dL Calcium 10.5 H (8.4-10.2) mg/dL Alkaline Phosphatase 128 H (38-126) U/L Total Protein 5.9 L (6.3-8.2) g/dL Albumin 3.2 L (3.5-5.0) g/dL Assessment and Plan (1) RUQ pain Narrative/Plan: Continue advancing diet as tolerated. Appreciate pulmonary evaluation. Status: Acute
[2017-03-04] MEDS ORDERED: SCOPOLAMINE 1.5MG/72HR PATCH TRANSDERM SCH (14:30)
[2017-03-04] MEDS: LEVALBUTEROL NEB 1.25 MG/3 ML AMP INHALATION SCH ×2 (15:31→19:12)
[2017-03-04] MEDS: SYMBICORT 160-4.5 MCG INHALER INHALATION SCH (19:12)
[2017-03-05] MEDS: HEPARIN SODIUM,PORCINE 5,000 UNIT/ML 1 ML VIAL SQ SCH ×2 (00:09→07:40)
[2017-03-05] MEDS: SODIUM CHLORIDE 0.9% 1,000 ML IV SCH (00:09)
[2017-03-05] MEDS: PIPERACILLIN-TAZOBACTAM 3.375 GM in DEXTROSE/WATER 1 50ML.BAG IVPB SCH ×2 (00:09→07:40)
[2017-03-05] MEDS: HYDROcodone/APAP 5-325MG 1 EACH TAB PO PRN ×4 (01:20→14:08)
[2017-03-05] MEDS: LEVOTHYROXINE 88 MCG TAB PO SCH (06:26)
[2017-03-05 07:18] VITALS: BP 131/80; RESP 16; TEMP 98.1
[2017-03-05] MEDS: SYMBICORT 160-4.5 MCG INHALER INHALATION SCH (07:20)
[2017-03-05] MEDS: LEVALBUTEROL NEB 1.25 MG/3 ML AMP INHALATION SCH ×2 (07:20→12:54)
[2017-03-05] MEDS ORDERED: PANTOPRAZOLE 40 MG TABLET PO SCH (07:30)
[2017-03-05 07:44] LABS: Basophils # (A) 0.1 k/uL (0-0.2); Basophils % (A) 1 %; CH 33.1; CHCM 32.5; Eosinophils # (A) 0.2 k/uL (0-0.7); Eosinophils % (A) 3 %; HCT 40.5 % (34.0-46.0); HDW 2.85; HGB 13.1 gm/dL (11.4-16.0); Luc # (Auto) 0.14; Luc % (Auto) 2; Lymphocytes # (A) 1.4 k/uL (1.0-4.8); Lymphocytes % (A) 20 %; MCH 33.2 pg (25.0-35.0); MCHC 32.3 g/dL (31.0-37.0); MCV 102.6 fL (80.0-100.0); Macrocytosis Slight; Mean Platelet Volume 7.9; Monocytes # (A) 0.4 k/uL (0-1.0); Monocytes % (A) 5 %; Neutrophils # (A) 4.9 k/uL (1.3-7.7); Neutrophils % (A) 69 %; RBC 3.95 m/uL (3.80-5.40); RDW 14.1 % (11.5-15.5); WBC 7.1 k/uL (3.8-10.6); WBC (Perox) 7.55
--- NOTE | 2017-03-05 07:53 | P.PN ---
Subjective Principal diagnosis: Acute cholecystitis Patient says her pain is improved. She is tolerating her diet. Still with productive cough and some shortness of breath. Objective - Vital Signs Vital signs: Vital Signs Temp 98.1 F 03/05/17 07:00 Pulse 92 03/05/17 07:37 Resp 16 03/05/17 07:00 BP 131/80 03/05/17 07:00 Pulse Ox 96 03/05/17 07:00 Intake & Output 03/04/17 03/05/17 03/05/17 18:59 06:59 18:59 Intake Total 500 980 Balance 500 980 Weight 62.596 kg Intake: IV 500 Sodium Chloride 0.9% 1, 500 000 ml @ 100 mls/hr IV . Q10H [facility] Rx#:[id number] Intake, IV Titration 500 Amount Sodium Chloride 0.9% 1, 500 000 ml @ 100 mls/hr IV . Q10H [facility] Rx#:[id number] Oral 0 480 Other: Voiding Method Toilet Toilet Bedside Commode Bedside Commode # Voids 1 1 - Exam Abdomen: Soft, nondistended, minimal tenderness, incisions clean and dry - Labs CBC & Chem 7: 03/05/17 06:56 03/04/17 06:37 Labs: Abnormal Lab Results - Last 24 Hours (Table) 03/04/17 03/05/17 Range/Units 06:37 06:56 MCV 101.1 H 102.6 H (80.0-100.0) fL Lymphocytes # 0.7 L (1.0-4.8) k/uL Assessment and Plan (1) RUQ pain Narrative/Plan: Continue diet as tolerated. Plan discharge once cleared by the medical subspecialties. Status: Acute
[2017-03-05 08:00] LABS: Anion Gap 7 mmol/L; Blood Urea Nitrogen 4 mg/dL (7-17); Calcium 10.7 mg/dL (8.4-10.2); Carbon Dioxide 28 mmol/L (22-30); Chloride 107 mmol/L (98-107); Glucose 106 mg/dL (74-99); Non-African American GFR(MDRD) >60 (>60 ml/min/1.73 sqM); Potassium 3.6 mmol/L (3.5-5.1); Sodium 142 mmol/L (137-145)
--- NOTE | 2017-03-05 09:34 | XR ---
EXAMINATION TYPE: XR chest 1V portable DATE OF EXAM: 03/05/2017 7:56 AM COMPARISON: Prior chest x-ray 02 March 2017 HISTORY: Atelectasis TECHNIQUE: Single frontal view of the chest is obtained. FINDINGS: Bandlike area of increased density in the left mid lung compatible with subsegmental atele ctasis is noted. There is no pneumothorax or pleural effusion. Heart is enlarged although this size m ay be accentuated by rotation, patient is post median sternotomy. Lung volumes are somewhat low. Inte rstitium mildly increased. IMPRESSION: Expiratory rotated exam, follow-up PA and lateral chest x-ray recommended.
[2017-03-05] MEDS: DESVENLAFAXINE SUCCINATE 50 MG TAB.ER.24H PO SCH (09:40)
--- NOTE | 2017-03-05 10:56 | P.PN ---
Subjective Principal diagnosis: Acute cholecystitis and incisional hernia This is a 51-year-old female patient who follows with Dr. Bliss as her primary care physician. She has a history of fibromyalgia, hyperlipidemia, osteoarthritis, PFO that was repaired at age 6. She also has a history of chronic and ongoing tobacco dependence and chronic obstructive pulmonary disease. She is maintained on albuterol HFA and albuterol nebulized treatments. No maintenance medications. She presented here on 03/02/2017 with complaints of abdominal pain. She was found to have an incisional hernia from previous surgery and acute cholecystitis. She had undergone a laparoscopic cholecystectomy with repair of incisional hernia by Dr. Hull yesterday. She had been recovering well from the surgical standpoint however she had developed increasing shortness of breath, cough and congestion some expiratory wheezing. She needed increased encouragement regarding the use of the incentive spirometer. She had been refusing breathing treatments secondary to a headache this morning. She is seen today in consultation. She is awake and alert in no acute distress. She is maintaining O2 saturations in the low 90s on room air. Is currently on 2 L/m per nasal cannula with improved saturations. She's been afebrile. No leukocytosis. Hemoglobin is stable. Bicarb 25. Initial chest x- ray revealed no active cardiopulmonary disease. Patient was seen again today on 03/05/2017, feeling much better, responding quite well to the present course of bronchodilators. Less cough and less wheezing less shortness of breath, as a matter of fact patient could be discharged home if cleared by her admitting physician and by the surgeon. She could have follow-up with me on outpatient basis. Objective - Vital Signs Vital signs: Vital Signs Temp 98.1 F 03/05/17 07:00 Pulse 84 03/05/17 08:00 Resp 16 03/05/17 08:00 BP 131/80 03/05/17 07:00 Pulse Ox 96 03/05/17 07:00 Intake & Output 03/04/17 03/05/17 03/05/17 18:59 06:59 18:59 Intake Total 500 980 180 Balance 500 980 180 Weight 62.596 kg Intake: IV 500 Sodium Chloride 0.9% 1, 500 000 ml @ 100 mls/hr IV . Q10H [facility] Rx#:[id number] Intake, IV Titration 500 Amount Sodium Chloride 0.9% 1, 500 000 ml @ 100 mls/hr IV . Q10H [facility] Rx#:[id number] Oral 0 480 180 Other: Voiding Method Toilet Toilet Toilet Bedside Commode Bedside Commode Bedside Commode # Voids 1 1 - Exam GENERAL EXAM: Alert, fairly comfortable in no apparent distress. Headaches. HEAD: Normocephalic. EYES: Normal reaction of pupils, equal size. NOSE: Clear with pink turbinates. THROAT: No erythema or exudates. NECK: No masses, no JVD. CHEST: No chest wall deformity. LUNGS: Equal air entry with no crackles, wheeze, rhonchi or dullness. CVS: S1 and S2 normal with no audible mumurs, regular rhythm. ABDOMEN: Surgical sites clean and dry. Abdomen soft, slightly tender to palpation. SPINE: No scoliosis or deformity SKIN: No rashes CENTRAL NERVOUS SYSTEM: No focal deficits, tone is normal in all 4 extremities. Extremities: There is no significant peripheral edema. No clubbing, no cyanosis. Peripheral pulses are intact. - Labs CBC & Chem 7: 03/05/17 06:56 03/05/17 06:56 Labs: Abnormal Lab Results - Last 24 Hours (Table) 03/05/17 03/05/17 Range/Units 06:56 06:56 MCV 102.6 H (80.0-100.0) fL BUN 4 L (7-17) mg/dL Glucose 106 H (74-99) mg/dL Calcium 10.7 H (8.4-10.2) mg/dL Assessment and Plan Plan: #1 Acute cholecystitis status post laparoscopic cholecystectomy and repair of incisional hernia. #2 Acute exacerbation of chronic obstructive pulmonary disease. #3 Chronic and ongoing tobacco dependence. #4 Migraines. #5 History of anxiety/depression. #6 Hyperlipidemia. #7 Fibromyalgia. #8 Osteoarthritis. Recommendation: Continue present treatment plan, continue present course of bronchodilators, consider regarding smoking cessation, consider discharge planning once cleared by the other consultants are physicians on the case. Patient can see me on outpatient basis. Time with Patient: Less than 30
--- NOTE | 2017-03-05 11:55 | P.PN ---
Subjective patient came to the ER several days ago with complaints of upper abdominal pain. It had Been going on several days. The pain Became too severe for her to manage. She complained of decreasing appetite and episodic nausea and vomiting. SHe was admitted to general surgery for abnormal liver function, right upper quadrant pain, abnormal amylase and lipase and suspected cholecystitis. She underwent a laproscopic cholecystectomy 03/03/2017 She smokes a pack a day plus. She has underlying COPD. Today she reports the headache she had yesterday, was improved with sumatriptan. She was switched to Xopenex, as she thought the DuoNeb updraft solution had brought on her migraine. She indicates she is feeling slightly better, but continues to cough quite a bit. We discussed her going home Objective - Vital Signs Vital signs: Vital Signs Temp 98.1 F 03/05/17 07:00 Pulse 84 03/05/17 08:00 Resp 16 03/05/17 08:00 BP 131/80 03/05/17 07:00 Pulse Ox 96 03/05/17 07:00 Intake & Output 03/04/17 03/05/17 03/05/17 18:59 06:59 18:59 Intake Total 500 980 180 Balance 500 980 180 Weight 62.596 kg Intake: IV 500 Sodium Chloride 0.9% 1, 500 000 ml @ 100 mls/hr IV . Q10H [facility] Rx#:[id number] Intake, IV Titration 500 Amount Sodium Chloride 0.9% 1, 500 000 ml @ 100 mls/hr IV . Q10H [facility] Rx#:[id number] Oral 0 480 180 Other: Voiding Method Toilet Toilet Toilet Bedside Commode Bedside Commode Bedside Commode # Voids 1 1 - Exam GENERAL: Coughing, but otherwise in no distress NECK: Normal range of motion, supple without lymphadenopathy or JVD, no thyromegaly LUNGS: Breath sounds show bilateral inspiratory wheezes, there are mild/ moderate quality. HEART: Regular rate and rhythm without murmurs, rubs or gallops.S1S2 Normal ABDOMEN: Soft, has a bowel sounds, further exam was deferred due to recent surgery. EXTREMITIES: Normal range of motion, no pitting or edema. No clubbing or cyanosis. PSYCH: Slightly depressed mood, normal affect. - Labs CBC & Chem 7: 03/05/17 06:56 03/05/17 06:56 Labs: Abnormal Lab Results - Last 24 Hours (Table) 03/05/17 03/05/17 Range/Units 06:56 06:56 MCV 102.6 H (80.0-100.0) fL BUN 4 L (7-17) mg/dL Glucose 106 H (74-99) mg/dL Calcium 10.7 H (8.4-10.2) mg/dL Assessment and Plan Plan: Acute cholecystitis, status post left Cholecystectomy, postop day 2: She remains under the care of a general surgery. She seemed to be improved. She had been cleared for discharge pending my evaluation Acute COPD: we'll continue her Symbicort,Xopenex Mucinex Flonase nasal spray. Chest x-ray showed atelectasis Fibromyalgia: She'll continue on Pristiq Impression: She remains on Pristiq, we will need to discuss this outpatient, she thought she was suicidal earlier this month Hypothyroidism: She'll continue on Synthroid 88 g daily. Hyperlipidemia: Review her liver function tests and lipids outpatient DVT prophylaxis: Early and frequent ambulation GI prophylaxis: She continues on pantoprazole. Headache: She has Clay ordered for pain Medically, if she feels up for this afternoon, she could go home. She continues to have a cough, and I will add a Medrol Dosepak to her regimen of medications. I'll prescribe for her to Dulera, and Spiriva for outpatient use She should follow-up in the office this coming week
[2017-03-05 13:02] VITALS: PULSE 96
[2017-03-05] MEDS ORDERED: SUMAtriptan SUCCINATE 50 MG TAB PO ONE (14:00)
== END 2017-03-05 14:00 | disposition home or self-care (01) | DRG 418 ==
LOC: EC 17:57 → OBSVTOIN 22:07 → 3SUR 22:07
PROVIDERS: ADMIT Surgery; ATTEND Surgery
PROC: 0WQF0ZZ Repair Abdominal Wall, Open Approach (ICD-10-PCS; 2017-03-03)
PROC: 0FT44ZZ Resection of Gallbladder, Percutaneous Endoscopic Approach (ICD-10-PCS; principal; 2017-03-03 14:30)
DX: K81.0 Acute cholecystitis (principal); J44.1 Chronic obstructive pulmonary disease with (acute) exacerbation; F32.9 Major depressive disorder, single episode, unspecified; E78.5 Hyperlipidemia, unspecified; K43.2 Incisional hernia without obstruction or gangrene; M79.7 Fibromyalgia; E03.9 Hypothyroidism, unspecified; F41.9 Anxiety disorder, unspecified; G43.909 Migraine, unspecified, not intractable, without status migrainosus; M19.91 Primary osteoarthritis, unspecified site; F17.200 Nicotine dependence, unspecified, uncomplicated; Z90.710 Acquired absence of both cervix and uterus; Z79.899 Other long term (current) drug therapy
CPT/HCPCS: 36415; 71010; 71020; 74000; 74177; 76705; 80048; 80053; 81003; 82150; 82550; 82553; 83690; 84484; 85025; 88302; 88304; 93005; 94640; 94760; 96361; 96374; 96375; 99285

== ENCOUNTER → 2017-07-13 | Outpatient (CLI) | payer OTHER ==
--- NOTE | 2017-07-13 14:27 | XR ---
EXAMINATION TYPE: XR cervical spine comp DATE OF EXAM: 07/13/2017 TECHNIQUE: Frontal, lateral, oblique, swimmers, and open mouth view of the cervical spine are obtaine d. HISTORY: Cervical disc disorder with radiculopathy, unspecified cervi headaches and back pain daily. COMPARISON: None FINDINGS: The cervical spine is visualized in its entirety from C1 thru the top of T1 level, it is s atisfactory in alignment without evidence of acute fracture or dislocation. Multilevel uncovertebral hypertrophy is seen at C3-C4, C4-C5 and C5-C6 with resultant mild neural foraminal narrowing at C5-6 on the left. Remaining neural foramina appear radiographically patent. Degenerative disc disease is seen at C3-C4, C4-C5 and C5-C6 with endplate sclerosis and intervertebral disc space narrowing. Visua lized lung apices are unremarkable with mediastinal wires. The pre-vertebral soft tissue appears with in normal limits. The C1-C2 articulation is within normal limits on the open mouth view. IMPRESSION: 1. No acute fracture or dislocation is seen in the cervical spine. 2. Mild multilevel degenerative disc disease resulting in at least mild neural foraminal narrowing at C5-C6 on the left. MR could further evaluate for degenerative disc disease or disc herniation.
--- NOTE | 2017-07-13 14:33 | XR ---
EXAM TYPE: LUMBAR SPINE X RAY SERIES COMPARISON: NONE HISTORY: Radiculopathy TECHNIQUE: 4 views are submitted. FINDINGS: Alignment is anatomic. The pedicles are intact. The transverse processes are intact. There is no s pondylolysis or spondylolisthesis. Diffuse osteopenia noted and there are surgical change in the gal lbladder fossa. Mild facet arthropathy L5-S1. Mild hypertrophic change and degenerative disc disease involving L3-4, L4-5 and L5-S1. Vascular calcifications noted. More moderate to severe degenerative disc disease at the approximate l evel of T11-T12. IMPRESSION: 1. Multilevel degenerative disc disease.
[2017-07-13 14:46] LABS: Basophils # (A) 0.1 k/uL (0-0.2); Basophils % (A) 1 %; CH 33.6; Eosinophils # (A) 0.3 k/uL (0-0.7); Eosinophils % (A) 3 %; HCT 52.7 % (34.0-46.0); HDW 2.77; HGB 17.4 gm/dL (11.4-16.0); Luc # (Auto) 0.08; Luc % (Auto) 1; Lymphocytes # (A) 2.5 k/uL (1.0-4.8); Lymphocytes % (A) 30 %; MCH 32.8 pg (25.0-35.0); MCV 99.6 fL (80.0-100.0); Monocytes # (A) 0.3 k/uL (0-1.0); Monocytes % (A) 4 %; Neutrophils # (A) 5.1 k/uL (1.3-7.7); Neutrophils % (A) 62 %; RDW 14.9 % (11.5-15.5); WBC 8.3 k/uL (3.8-10.6); WBC (Perox) 7.97
[2017-07-13 15:08] LABS: Anion Gap 8 mmol/L; Blood Urea Nitrogen 9 mg/dL (7-17); C Reactive Protein 5.9 mg/L (<10.0); Calcium 11.8 mg/dL (8.4-10.2); Carbon Dioxide 26 mmol/L (22-30); Chloride 107 mmol/L (98-107); Glucose 108 mg/dL (74-99); Non-African American GFR(MDRD) >60 (>60 ml/min/1.73 sqM); Potassium 4.5 mmol/L (3.5-5.1); Sodium 141 mmol/L (137-145)
[2017-07-13 15:39] LABS: Erythrocyte Sedimentation Rate 2 mm/hr (0-20)
== END ==
LOC: RAD 13:44
PROVIDERS: ATTEND Family Medicine
DX: M99.71 Connective tissue and disc stenosis of intervertebral foramina of cervical region (principal); M50.10 Cervical disc disorder with radiculopathy, unspecified cervical region; M51.16 Intervertebral disc disorders with radiculopathy, lumbar region
CPT/HCPCS: 72050; 72110; 80048; 85025; 85652; 86140

== ENCOUNTER → 2017-07-20 | Outpatient (CLI) | payer OTHER ==
[2017-07-20 13:29] LABS: Anion Gap 8 mmol/L; Blood Urea Nitrogen 6 mg/dL (7-17); Calcium 11.1 mg/dL (8.4-10.2); Carbon Dioxide 29 mmol/L (22-30); Chloride 106 mmol/L (98-107); Glucose 66 mg/dL (74-99); Non-African American GFR(MDRD) >60 (>60 ml/min/1.73 sqM); Potassium 4.3 mmol/L (3.5-5.1); Sodium 143 mmol/L (137-145)
== END | disposition home or self-care (01) ==
LOC: LABWHC1 12:09
PROVIDERS: ATTEND Family Medicine
DX: E83.52 Hypercalcemia (principal); J44.9 Chronic obstructive pulmonary disease, unspecified; M54.16 Radiculopathy, lumbar region; G43.919 Migraine, unspecified, intractable, without status migrainosus
CPT/HCPCS: 36415; 80048; 82306; 83970

== ENCOUNTER → 2017-07-26 | Outpatient (CLI) | payer OTHER ==
--- NOTE | 2017-07-27 02:13 | MR ---
EXAMINATION TYPE: MR cspine/lspine wo con DATE OF EXAM: 07/26/2017 COMPARISON: Lumbar scan 08/12/2015 HISTORY: Neck and Low back pain TECHNIQUE: Multiplanar, multisequence imaging of the lumbar spine is performed without IV contrast. FINDINGS: Cervical vertebrae are fairly normal alignment. There is mild narrowing of the disc spaces from C4 to C7. Cervical spinal cord appears normal. There is no edema. There are small posterior disc bulges at C3-4 C4-5 C5-6 C6-7 without any significant impingement on the cervical spinal cord. There is no bon y spinal stenosis. Brainstem appears intact. There is no compression fracture. There is no sign of ce rvical paraspinal mass. There is a prominent neural foramen on the right side at T1-T2. This could re late to a mild lateral meningocele. This area is not completely evaluated since the sagittal images d o not extend very far laterally. The lumbar vertebra have normal alignment. There is slight narrowing of the L3-4 disc space. There is no compression fracture. Lumbar nerve roots appear intact. The neural foramina are fairly well maint ained. There is no lumbar paraspinal mass. The sacroiliac joints appear normal. There is no spinal st enosis. There is mild heterogeneity in the vertebral bodies consistent with variable fatty marrow rep lacement. IMPRESSION: Mild multilevel spondylotic change in the cervical spine. Possible right side T1-T2 lateral small men ingocele. No cervical bony spinal stenosis. Minor degenerative disc changes in the lumbar spine. No fracture. No spinal stenosis. No change gulshan red to previous exam.
== END | disposition home or self-care (01) ==
LOC: RADMRIMAIN 19:45
PROVIDERS: ATTEND Family Medicine
DX: M47.816 Spondylosis without myelopathy or radiculopathy, lumbar region (principal); M47.812 Spondylosis without myelopathy or radiculopathy, cervical region
CPT/HCPCS: 72141; 72148

== ENCOUNTER → 2017-12-12 | Outpatient (CLI) | payer OTHER ==
--- NOTE | 2017-12-12 17:21 | NM ---
EXAMINATION TYPE: NM parathyroid DATE OF EXAM: 12/12/2017 COMPARISON: Thyroid ultrasound November 15, 2017. HISTORY: Parathyroid adenoma per order. TECHNIQUE: Following administration of 26.5 mCi Tc99m Sestamibi. Anterior projection images of the neck and ches t were obtained 10 minutes and 3 hours post injection FINDINGS: Thyroid tracer washout: Delayed images demonstrate near complete washout of thyroid. Parathyroid uptake: The delayed images show areas suspicious uptake at upper pole of the right thyroi d lateral aspect. Normal uptake: There is physiological tracer uptake in the salivary glands. IMPRESSION: Abnormal study, parathyroid adenoma needs to be considered lateral aspect upper pole level right thyr oid despite recent negative ultrasound especially in the pancreatic clinical setting. Comparison with MRI cervical spine July 26, 2017 shows possible correlated axial image 17 just an terior to carotid artery and medial to jugular vein.
== END | disposition home or self-care (01) ==
LOC: RADNMMAIN 11:27
PROVIDERS: ATTEND Surgery
DX: D35.1 Benign neoplasm of parathyroid gland (principal)
CPT/HCPCS: 78070; A9500

== ENCOUNTER 2017-12-29 06:52 | Observation (INO) | payer OTHER ==
[2017-12-21 15:53] VITALS: BMI 27.3
[~2017-12-29 06:52] MED LIST changes: +HEPARIN SODIUM,PORCINE 5,000 UNIT/ML 1 ML VIAL SQ ONE; -LACTATED RINGERS 1,000 ML IV ONE; +MIDAZOLAM 2 MG/2 ML VIAL IV PRN; +MORPHINE SULFATE 4 MG/ML SYRINGE IV PRN; +ONDANSETRON 4 MG/2 ML VIAL IVP ONE; +Pre Op ABX Message 1 EACH MISC MISCELLANE ONE; +SCOPOLAMINE 1.5MG/72HR PATCH TRANSDERM ONE; -SODIUM CHLORIDE 0.9% 250 ML in EMPTY BAG 1 BAG IV PRN; -SODIUM CHLORIDE 0.9% 500 ML in EMPTY BAG 1 BAG IV PRN
[2017-12-29] MEDS ORDERED: LIDOCAINE 1% 20 ML VIAL (10MG/ML) FOR IV START INTRADERMA ONE (07:45)
--- NOTE | 2017-12-29 07:52 | P.GSHP ---
History of Present Illness H&P Date: 12/29/17 Chief Complaint: Hypercalcemia, parathyroid adenoma This a 52-year-old female who's had difficulties with hypercalcemia. Patient's noted to have elevated parathyroid hormone. Her recent parathyroid scan shows evidence of a possible right upper parathyroid adenoma. Patient presents today for parathyroid excision. She is aware the risks of surgery including bleeding , hematoma, vocal cord hoarseness, injury to the recurrent laryngeal nerve. He is also aware the risk of inability to find the parathyroid adenoma and possible reexploration. 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 as a child Past Anesthesia/Blood Transfusion Reactions: Motion Sickness Additional Past Anesthesia/Blood Transfusion Reaction / Comment(s): never had a blood transfusion, unknown family hx.-pt. adopted."deathly of afraid of needles. "had a hard time waking up one time from anesthesia." Past Psychological History: Anxiety, Depression Smoking Status: Current every day smoker Past Alcohol Use History: Rare Additional Past Alcohol Use History / Comment(s): started smoking at age 13,1ppd Past Drug Use History: None Reported - Past Family History Mother Family Medical History: No Reported History Additional Family Medical History / Comment(s): Biological mother at age 33 y/o of brain aneuyrsm. Pt is adopted. Medications and Allergies Home Medications Medication Instructions Recorded Confirmed Type Albuterol Inhaler [Ventolin Hfa 2 puff INHALATION RT-Q6H PRN 03/02/17 12/21/17 History Inhaler] Levothyroxine Sodium [Synthroid] 88 mcg PO QAM 03/02/17 12/21/17 History Mometasone/Formoterol [Dulera 200 2 puff INHALATION BID #1 inhaler 03/05/1712/07 Rx Mcg/5 Mcg Inhaler] Pantoprazole [Protonix] 40 mg PO ALEEKFSHoward #30 tablet. 03/05/17 12/21/17 Rx Ergocalciferol [Vitamin D2] 50,000 unit PO Q7D 12/21/17 12/21/17 History Gabapentin [Neurontin] 300 mg PO TID 12/21/17 12/21/17 History Montelukast Sodium [Singulair] 10 mg PO HS 12/21/17 12/21/17 History Naproxen [Naprosyn] 500 mg PO Q12HR PRN 12/21/17 12/21/17 History SUMAtriptan SUCCINATE [Imitrex] 100 mg PO ONCE PRN 12/21/17 12/21/17 History traMADol HCL [Ultram] 50 mg PO Q6HR PRN 12/21/17 12/21/17 History Allergies Allergy/AdvReac Type Severity Reaction Status Date / Time prednisolone Allergy Swelling Verified 12/21/17 15:22 Surgical - Exam Vital Signs Temp Pulse Resp BP Pulse Ox 98.2 F 88 18 124/81 98 12/29/17 07:32 12/29/17 07:32 12/29/17 07:32 12/29/17 07:32 12/29/17 07:32 - General well developed, no distress - Eyes PERRL - ENT normal pinna - Neck no masses - Respiratory normal expansion - Cardiovascular Rhythm: regular - Abdomen Abdomen: soft, non tender Results - Imaging Additional studies: Parathyroid scan shows evidence of a right upper parathyroid adenoma Assessment and Plan Assessment: Hypercalcemia with parathyroid adenoma. Patient will undergo exploration with parathyroid glands with possible excision. Risks and benefits of procedure were discussed with the patient again in the preoperative hold area prior to surgery.
[2017-12-29] MEDS ORDERED: NEOSTIGMINE 1 MG/ML 10 ML VIAL ONE (07:57)
[2017-12-29] MEDS ORDERED: PROPOFOL 10 MG/ML 20 ML VIAL IV ONE (07:57)
[2017-12-29] MEDS ORDERED: ROCURONIUM BROMIDE 10 MG/ML 10 ML VIAL IV ONE (07:57)
[2017-12-29] MEDS ORDERED: fentaNYL (PF) 50 MCG/ML 2 ML AMP ONE (07:57)
[2017-12-29] MEDS ORDERED: SUCCINYLCHOLINE CHLORIDE 100 MG/5 ML SYR IV ONE (07:57)
[2017-12-29] MEDS ORDERED: MIDAZOLAM 2 MG/2 ML VIAL ONE (07:57)
[2017-12-29] MEDS ORDERED: GLYCOPYRROLATE 0.2 MG/ML 2 ML VIAL ONE (07:57)
[2017-12-29] MEDS ORDERED: SCOPOLAMINE 1.5MG/72HR PATCH TRANSDERM ONE (07:59)
[2017-12-29] MEDS: LACTATED RINGERS 1,000 ML IV SCH (08:00)
[2017-12-29] MEDS ORDERED: ceFAZolin 1,000 MG/50 ML BAG (PMX) IVPB ONE (08:29)
[2017-12-29] MEDS ORDERED: SODIUM CHLORIDE 0.9% 50 ML with ceFAZolin 1,000 MG IV ONE ×2 (08:29)
[2017-12-29] MEDS ORDERED: BUPIVACAINE (PF) 0.25% 30 ML VIAL SQ ONE ×2 (08:33→09:12)
[2017-12-29] MEDS ORDERED: NALOXONE 0.4 MG/ML 1 ML VIAL IV PRN (09:23)
[2017-12-29] MEDS ORDERED: ONDANSETRON 4 MG/2 ML VIAL IVP PRN (09:23)
[2017-12-29] MEDS ORDERED: LACTATED RINGERS 1,000 ML IV ONE ×2 (09:23→11:09)
[2017-12-29] MEDS ORDERED: ONDANSETRON 4 MG/2 ML VIAL IVP ONE (09:39)
[2017-12-29] MEDS ORDERED: HYDROmorphone 0.5 MG/0.5 ML SYRINGE IVP ONE ×2 (09:39→09:47)
[2017-12-29] MEDS ORDERED: diphenhydrAMINE 50 MG/ML 1 ML VIAL IVP ONE (10:13)
[2017-12-29] MEDS ORDERED: ENALAPRILAT 1.25 MG/ML 1 ML VIAL IVP ONE (10:32)
[2017-12-29] MEDS ORDERED: hydrALAZINE HCL 20 MG/ML 1 ML VIAL IVP ONE (10:55)
--- NOTE | 2017-12-29 13:16 | P.OP ---
Date of Procedure: 12/29/17 Preoperative Diagnosis: parathyroid adenoma Postoperative Diagnosis: right upper parathyroid adenoma Procedure(s) Performed: excision of right upper parathyroid adenoma Anesthesia: MARK Surgeon: Ronny Kruse Estimated Blood Loss (ml): 10 Pathology: other (parathyroid adenoma confirmed by frozen section) Condition: stable Disposition: PACU Description of Procedure: the patient's placed on the operating table in the supine position. She received general anesthesia. Her neck was prepped and draped in usual sterile fashion. The skin was incised in the standard Nanci incision and then using left cautery the platysma was divided. The strap muscles were then divided midline. And then the right thyroid gland was exposed by using a pair of Poole retractors. In the upper pole a parathyroid adenoma was found. This was bluntly dissected with a hemostat and then using the Harmonic scissors the parathyroid adenoma was dissected. The adenoma was sent to pathology for frozen section. Frozen section confirmed that this was an adenoma. At this point the strap muscles were reapproximated using 3-0 Vicryl suture. The platysma was closed 3-0 Vicryl suture. Skin was closed interrupted 3-0 Monocryl suture. Patient was sent to recovery in stable condition.
[2017-12-29] MEDS ORDERED: ALBUTEROL NEBULIZED 2.5 MG/3 ML INHALATION PRN (14:59)
[2017-12-29] MEDS ORDERED: SUMAtriptan SUCCINATE 50 MG TAB PO PRN (14:59)
--- NOTE | 2017-12-29 15:03 | P.CONS ---
History of Present Illness - Reason for Consult Consult date: 12/29/17 Medical management - Chief Complaint s/p excision of right upper parathyroid adenoma - History of Present Illness 52-year-old female who underwent elective excision of right upper parathyroid adenoma on 12/29/[address] Kruse. The patient has a history of hypercalcemia. She was found to have elevated parathyroid hormone. Outpatient parathyroid scan showed was completed and revealed evidence of possible right upper parathyroid adenoma. Dr. Valdes was consulted for medical management. Review of Systems GENERAL: Patient denies fever. Denies chills. EYES: Denies blurred vision. Denies vision changes. Denies eye pain. EARS, NOSE, MOUTH, & THROAT: Denies headache. Denies sore throat. Denies ear pain. RESPIRATORY: Denies cough. Denies shortness of breath. Denies sputum production. Denies hemoptysis. CARDIOVASCULAR: Denies chest pain or pressure. Denies palpitations. Denies arrhythmias. GASTROINTESTINAL: Positive for history of GERD. Denies abdominal pain. Denies diarrhea. Denies constipation. Denies nausea. Denies vomiting. Denies blood in the stool. GENITOURINARY: Denies urinary frequency. Denies burning. Denies dysuria. Denies cloudy urine. Denies blood in the urine. MUSCULOSKELETAL: Denies myalgias. Denies joint swelling. Denies decreased range of motion beyond patients baseline. INTEGUMENTARY: Denies pruitis. Denies rash. PSYCHIATRIC: Positive for history of anxiety. Positive for history of depression. Denies suicidal or homicial ideations. ENDOCRINE: Denies weight change. Denies polydipsia. Denies polyuria. HEMATOLOGIC: Denies bleeding disorders. 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 as a child Past Anesthesia/Blood Transfusion Reactions: Motion Sickness Additional Past Anesthesia/Blood Transfusion Reaction / Comm: never had a blood transfusion, unknown family hx.-pt. adopted."deathly of afraid of needles."had a hard time waking up one time from anesthesia." Past Psychological History: Anxiety, Depression Smoking Status: Current every day smoker Past Alcohol Use History: Rare Additional Past Alcohol Use History / Comment(s): started smoking at age 13,1ppd Past Drug Use History: None Reported - Past Family History Mother Family Medical History: No Reported History Additional Family Medical History / Comment(s): Biological mother at age 33 y/o of brain aneuyrsm. Pt is adopted. Medications and Allergies Home Medications Medication Instructions Recorded Confirmed Type Albuterol Inhaler [Ventolin Hfa 2 puff INHALATION RT-Q6H PRN 03/02/17 12/21/17 History Inhaler] Levothyroxine Sodium [Synthroid] 88 mcg PO QAM 03/02/17 12/21/17 History Mometasone/Formoterol [Dulera 200 2 puff INHALATION BID #1 inhaler 03/05/1712/07 Rx Mcg/5 Mcg Inhaler] Pantoprazole [Protonix] 40 mg PO AC-BRKFST #30 tablet. 03/05/17 12/21/17 Rx Ergocalciferol [Vitamin D2] 50,000 unit PO Q7D 12/21/17 12/21/17 History Gabapentin [Neurontin] 300 mg PO TID 12/21/17 12/21/17 History Montelukast Sodium [Singulair] 10 mg PO HS 12/21/17 12/21/17 History Naproxen [Naprosyn] 500 mg PO Q12HR PRN 12/21/17 12/21/17 History SUMAtriptan SUCCINATE [Imitrex] 100 mg PO ONCE PRN 12/21/17 12/21/17 History traMADol HCL [Ultram] 50 mg PO Q6HR PRN 12/21/17 12/21/17 History Docusate [Colace] 100 mg PO BID #20 capsule 12/29/17 Rx HYDROcodone/APAP 7.5-325MG [[place] 1 each PO Q4H PRN #30 tab 12/29/17 Rx 7.5] Allergies Allergy/AdvReac Type Severity Reaction Status Date / Time prednisolone Allergy Swelling Verified 12/21/17 15:22 Physical Exam Vitals: Vital Signs Temp Pulse Resp BP Pulse Ox 12/29/17 12:21 90 107/69 96 12/29/17 12:06 89 106/73 96 12/29/17 11:51 88 16 119/78 96 12/29/17 11:36 97.9 F 94 16 128/85 92 L 12/29/17 11:01 80 14 156/77 98 12/29/17 10:56 74 16 160/88 100 12/29/17 10:45 70 16 173/99 100 12/29/17 10:30 69 10 L 166/88 98 12/29/17 10:15 71 11 L 164/94 100 12/29/17 10:00 68 16 152/85 99 12/29/17 09:45 64 16 162/86 97 12/29/17 09:29 98.2 F 76 20 152/87 92 L 12/29/17 07:32 98.2 F 88 18 124/81 98 Intake and Output 12/28/17 12/29/17 12/29/17 22:59 06:59 14:59 Intake Total 2049 Output Total 5 Balance 2044 Intake: IV 2049 Output: Estimated Blood Loss 5 Other: Voiding Method Toilet GENERAL: This is a 52-year-old female in no apparent distress at the time of examination who does appear slightly lethargic. HEENT: Surgical incision noted to anterior neck. No erythema or drainage noted. Voice is hoarse at this time. Head is atraumatic, normocephalic. Pupils are equal, round, and reactive to light. Sclerae anicteric. Conjunctivae are clear. Mucus membranes of the mouth are moist. RESPIRATORY: Clear to ausculation. No wheezes, rales, or rhonchi. No use of accessory muscles. Patient maintaining oxygen saturation greater than 92%. No chest wall tenderness is noted on palpation or with deep breathing. CARDIOVASCULAR: Regular rate and rhythm. S1 and S2 noted. No systolic or diastolic murmur auscultated. No JVD noted. No S3 or S4 noted. GASTROINTESTINAL: No distention noted. Abdomen soft and round. Normal active bowel sounds auscultated x 4 quadrants. No pain or tenderness noted upon palpation. INTEGUMENTARY: No cyanosis. No jaundice. No rashes noted. No cellulitis noted. EXTREMITIES: 2+ peripheral pulses. No evidence of peripheral edema. No calf tenderness noted. NEUROLOGIC: Cranial nerves II-XII intact. PSYCHIATRIC: Lethargic. oriented X 3. Appropriate affect. Intact judgement and insight. Results Labs: Abnormal Lab Results - Last 24 Hours (Table) 12/29/17 12/29/17 Range/Units 07:48 12:32 Calcium 11.2 H 10.4 H (8.4-10.2) mg/dL Assessment and Plan Plan: ASSESSMENT: S/P excision of right upper parathyroid adenoma on 12/29/2017, POD #0 Hypercalcemia, secondary to parathyroid adenoma Chronic obstructive pulmonary disease, no evidence of acute exacerbation Gastroesophageal reflux disease Hyperlipidemia Osteoarthritis Fibromyalgia Anxiety, unspecified Depression, unspecified Nicotine dependence, patient is a current everyday cigarette smoker PLAN: Continue postop surgical care per Dr. Kruse Home meds as appropriate Check calcium every 6 hours 3 Check magnesium in a.m. Incentive spirometer 10 times hour while awake Activity as tolerated Pain control Monitor labs GI prophylaxis: Protonix 40 mg PO Daily DVT prophylaxis: Lovenox 40 mg daily Monitor vital signs and address as appropriate Further recommendations pending patient's course Nurse practitioner note has been reviewed by physician. Signing provider agrees with the documented findings, assessment, and plan of care.
[2017-12-29] MEDS: HYDROmorphone 0.5 MG/0.5 ML SYRINGE IVP PRN (17:11)
[2017-12-29] MEDS: GABAPENTIN 300 MG CAP PO SCH ×2 (17:36→23:06)
[2017-12-29] MEDS ORDERED: MONTELUKAST 10 MG TAB PO SCH (21:00)
[2017-12-29] MEDS: HYDROcodone/APAP 5-325MG 1 EACH TAB PO PRN (21:26)
[2017-12-29] MEDS: SYMBICORT 160-4.5 MCG INHALER INHALATION SCH (21:28)
[2017-12-29] MEDS: DOCUSATE 100 MG CAP PO SCH (21:29)
[2017-12-30] MEDS: LACTATED RINGERS 1,000 ML IV SCH (01:21)
[2017-12-30] MEDS: HYDROmorphone 0.5 MG/0.5 ML SYRINGE IVP PRN (01:23)
[2017-12-30] MEDS ORDERED: LEVOTHYROXINE 88 MCG TAB PO SCH (06:30)
[2017-12-30] MEDS ORDERED: PANTOPRAZOLE 40 MG TABLET PO SCH (07:30)
[2017-12-30 07:34] LABS: Calcium 9.1 mg/dL (8.4-10.2); Magnesium 1.5 mg/dL (1.6-2.3)
[2017-12-30] MEDS: DOCUSATE 100 MG CAP PO SCH (08:22)
[2017-12-30] MEDS: GABAPENTIN 300 MG CAP PO SCH (08:22)
[2017-12-30] MEDS ORDERED: ENOXAPARIN 40 MG/0.4 ML SYRINGE SQ SCH (09:00)
[2017-12-30 09:13] VITALS: BP 105/68; PULSE 74; TEMP 97.6
[2017-12-30] MEDS: SYMBICORT 160-4.5 MCG INHALER INHALATION SCH (09:30)
--- NOTE | 2017-12-30 09:31 | P.DS ---
Providers Date of admission: 12/30/17 01:32 Expected date of discharge: 12/30/17 Attending physician: Ronny Kruse Consults: 12/29/17 09:23 Consult Physician Routine Consulting Provider: Sameer Bliss Consult Reason/Comments: Medical management Do you want consulting provider notified?: Yes Primary care physician: Sameer Bliss [place] [facility] Course: This a 52-year-old female with history of hypercalcemia. Patient underwent right upper parathyroid adenoma excision. Patient did well postop. Please hospital chart for details. Procedures: Parathyroidectomy Patient Condition at Discharge: Good Plan - Discharge Summary Discharge Rx Participant: No New Discharge Prescriptions: New Docusate [Colace] 100 mg PO BID #20 capsule HYDROcodone/APAP 7.5-325MG [[place] 7.5] 1 each PO Q4H PRN #30 tab PRN Reason: Pain No Action Levothyroxine Sodium [Synthroid] 88 mcg PO QAM Albuterol Inhaler [Ventolin Hfa Inhaler] 2 puff INHALATION RT-Q6H PRN PRN Reason: COPD Mometasone/Formoterol [Dulera 200 Mcg/5 Mcg Inhaler] 2 puff INHALATION BID # 1 inhaler Pantoprazole [Protonix] 40 mg PO AC-BRKFST #30 tablet. Naproxen [Naprosyn] 500 mg PO Q12HR PRN PRN Reason: Pain traMADol HCL [Ultram] 50 mg PO Q6HR PRN PRN Reason: Pain SUMAtriptan SUCCINATE [Imitrex] 100 mg PO ONCE PRN PRN Reason: migraines Montelukast Sodium [Singulair] 10 mg PO HS Ergocalciferol [Vitamin D2] 50,000 unit PO Q7D Gabapentin [Neurontin] 300 mg PO TID Discharge Medication List Albuterol Inhaler [Ventolin Hfa Inhaler] 2 puff INHALATION RT-Q6H PRN 03/02/17 [ History] Levothyroxine Sodium [Synthroid] 88 mcg PO QAM 03/02/17 [History] Mometasone/Formoterol [Dulera 200 Mcg/5 Mcg Inhaler] 2 puff INHALATION BID #1 inhaler 03/05/17 [Rx] Pantoprazole [Protonix] 40 mg PO AC-BRKFST #30 tablet. 03/05/17 [Rx] Ergocalciferol [Vitamin D2] 50,000 unit PO Q7D 12/21/17 [History] Gabapentin [Neurontin] 300 mg PO TID 12/21/17 [History] Montelukast Sodium [Singulair] 10 mg PO HS 12/21/17 [History] Naproxen [Naprosyn] 500 mg PO Q12HR PRN 12/21/17 [History] SUMAtriptan SUCCINATE [Imitrex] 100 mg PO ONCE PRN 12/21/17 [History] traMADol HCL [Ultram] 50 mg PO Q6HR PRN 12/21/17 [History] Docusate [Colace] 100 mg PO BID #20 capsule 12/29/17 [Rx] HYDROcodone/APAP 7.5-325MG [[place] 7.5] 1 each PO Q4H PRN #30 tab 12/29/17 [Rx] Follow up Appointment(s)/Referral(s): Ronny Kruse MD [STAFF PHYSICIAN] - 1 Week Discharge Disposition: HOME SELF-CARE
[2017-12-30] MEDS: HYDROcodone/APAP 5-325MG 1 EACH TAB PO PRN (10:43)
[2017-12-30 10:48] VITALS: RESP 18
== END 2017-12-30 13:40 | disposition home or self-care (01) ==
LOC: OR 06:52 → 6PED 09:11 → OR 12-30 01:32
PROVIDERS: ADMIT Surgery; ATTEND Surgery
DX: D35.1 Benign neoplasm of parathyroid gland (principal); E83.52 Hypercalcemia; J44.9 Chronic obstructive pulmonary disease, unspecified; M79.7 Fibromyalgia; M19.90 Unspecified osteoarthritis, unspecified site; K21.9 Gastro-esophageal reflux disease without esophagitis; E78.5 Hyperlipidemia, unspecified; F17.210 Nicotine dependence, cigarettes, uncomplicated; F41.9 Anxiety disorder, unspecified; F32.9 Major depressive disorder, single episode, unspecified; Z87.74 Personal history of (corrected) congenital malformations of heart and circulatory system; G62.9 Polyneuropathy, unspecified; Z79.51 Long term (current) use of inhaled steroids; Z79.899 Other long term (current) drug therapy; Z79.1 Long term (current) use of non-steroidal anti-inflammatories (NSAID); Z88.8 Allergy status to other drugs, medicaments and biological substances
CPT/HCPCS: 60500; 94640 ×2; 88305; 82310 ×2; 83735; 88331; G0378; J2250; J0360; J1200; J2710; J2405; J1650; J3010; J0690; J0330; J2704; J1170 ×2

== ENCOUNTER 2019-01-14 12:14 | Emergency (ER) | payer OTHER ==
[2019-01-14 12:27] VITALS: BP 151/79; PULSE 99; RESP 20; TEMP 97.8
--- NOTE | 2019-01-14 13:46 | XR ---
EXAMINATION TYPE: XR knee complete RT DATE OF EXAM: 01/14/2019 CLINICAL HISTORY: Fall injury one week ago with pain. TECHNIQUE: Three views of the right knee are obtained. COMPARISON: Bilateral knee x-ray November 24, 2016. FINDINGS: There is no acute fracture/dislocation evident in right knee. Mild to moderate narrowing m edial tibiofemoral compartment is present. The overlying soft tissue appears unremarkable. IMPRESSION: There is no acute fracture or dislocation in the right knee.
[2019-01-14] MEDS ORDERED: ACET/COD 300 MG/30 MG STARTER PACK 6 TAB BTL PO STA (13:53)
--- NOTE | 2019-01-14 13:53 | ED ---
Lower Extremity Injury HPI - General Chief Complaint: Extremity Injury, Lower Stated Complaint: fall/knee pain Time Seen by Provider: 01/14/19 13:04 Source: patient, RN notes reviewed Mode of arrival: ambulatory Limitations: no limitations - History of Present Illness Initial Comments: 53-year-old female presents emergency from for right knee pain. Patient states she fell 3 times on her right knee because of the eyes. Patient states that she 's been wearing her knee brace for 1 week states that has not improved much. She's been taking [id number] medications with no relief. Patient denies any prior fractures, surgeries. Denies any right hip pain or ankle pain. - Related Data Home Medications Medication Instructions Recorded Confirmed Albuterol Inhaler [Ventolin Hfa 2 puff INHALATION RT-Q6H PRN 03/02/17 12/30/17 Inhaler] Levothyroxine Sodium [Synthroid] 88 mcg PO QAM 03/02/17 12/30/17 Ergocalciferol [Vitamin D2] 50,000 unit PO FR 12/21/17 12/30/17 Gabapentin [Neurontin] 300 mg PO TID 12/21/17 12/30/17 Montelukast Sodium [Singulair] 10 mg PO HS 12/21/17 12/30/17 Naproxen [Naprosyn] 500 mg PO Q12HR PRN 12/21/17 12/30/17 traMADol HCL [Ultram] 50 mg PO Q6HR PRN 12/21/17 12/30/17 Mometasone/Formoterol [Dulera 200 2 puff INHALATION RT-BID 12/30/17 12/30/17 Mcg/5 Mcg Inhaler] SUMAtriptan SUCCINATE [Imitrex] 100 mg PO DAILY PRN 12/30/17 12/30/17 Previous Rx's Medication Instructions Recorded Pantoprazole [Protonix] 40 mg PO FAYE #30 tablet. 03/05/17 Docusate [Colace] 100 mg PO BID #20 capsule 12/29/17 HYDROcodone/APAP 7.5-325MG [[place] 1 each PO Q4H PRN #30 tab 12/29/17 7.5] Ibuprofen [Motrin] 600 mg PO Q8HR PRN #30 tab 01/14/19 Allergies Allergy/AdvReac Type Severity Reaction Status Date / Time prednisolone Allergy Swelling Verified 01/14/19 12:27 Review of Systems ROS Statement: Those systems with pertinent positive or pertinent negative responses have been documented in the HPI. ROS Other: All systems not noted in ROS Statement are negative. 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 as a child Past Anesthesia/Blood Transfusion Reactions: Motion Sickness Additional Past Anesthesia/Blood Transfusion Reaction / Comment(s): never had a blood transfusion, unknown family hx.-pt. adopted."deathly of afraid of needles. "had a hard time waking up one time from anesthesia." Past Psychological History: Anxiety, Depression Smoking Status: Current every day smoker Past Alcohol Use History: Rare Past Drug Use History: None Reported - Past Family History Mother Family Medical History: No Reported History Additional Family Medical History / Comment(s): Biological mother at age 33 y/o of brain aneuyrsm. Pt is adopted. General Exam Limitations: no limitations General appearance: alert, in no apparent distress Head exam: Present: atraumatic, normocephalic, normal inspection Respiratory exam: Present: normal lung sounds bilaterally. Absent: respiratory distress, wheezes, rales, rhonchi, stridor Cardiovascular Exam: Present: regular rate, normal rhythm, normal heart sounds. Absent: systolic murmur, diastolic murmur, rubs, gallop, clicks Extremities exam: Present: other (Right knee pain with range of motion, pain in the anterior aspect, pain with valgus and varus though no laxity appreciated, leg is neurovascularly intact joint above and below within normal limits) Course Vital Signs 01/14/19 12:23 Temperature 97.8 F Pulse Rate 99 Respiratory 20 Rate Blood Pressure 151/79 O2 Sat by Pulse 98 Oximetry Medical Decision Making - Medical Decision Making 53-year-old female presented from it for right knee pain. X-rays obtained no acute fracture. Patient reports pain with stress of the ligaments. Patient may have underlying strain. Patient follow-up with orthopedics. Return parameters were discussed. Disposition Clinical Impression: Right knee sprain Disposition: HOME SELF-CARE Condition: Stable Instructions (If sedation given, give patient instructions): Knee Sprain (ED), Knee Pain (ED) Additional Instructions: Please return to the Emergency Department if symptoms worsen or any other concerns. Prescriptions: Ibuprofen [Motrin] 600 mg PO Q8HR PRN #30 tab PRN Reason: Pain Is patient prescribed a controlled substance at d/c from ED?: No Referrals: Sameer Bliss MD [Primary Care Provider] - 1-2 days Feroz Jett MD [Medical Doctor] - 1-2 days Time of Disposition: 13:52
== END 2019-01-14 14:06 | disposition home or self-care (01) ==
LOC: EC 12:14
DX: S83.91XA Sprain of unspecified site of right knee, initial encounter (principal); J44.9 Chronic obstructive pulmonary disease, unspecified; M79.7 Fibromyalgia; G62.9 Polyneuropathy, unspecified; F17.200 Nicotine dependence, unspecified, uncomplicated; Z79.890 Hormone replacement therapy; Z79.899 Other long term (current) drug therapy; Z88.8 Allergy status to other drugs, medicaments and biological substances; W19.XXXA Unspecified fall, initial encounter
CPT/HCPCS: 99283

== ENCOUNTER 2019-05-02 08:34 | Observation (INO) | payer OTHER ==
--- NOTE | 2019-05-02 09:32 | XR ---
EXAMINATION TYPE: XR chest 2V DATE OF EXAM: 05/02/2019 COMPARISON: Chest x-ray March 05, 2017. HISTORY: History of COPD with chest pain and cough. TECHNIQUE: Frontal and lateral views of the chest are obtained. FINDINGS: There is background chronic emphysematous change without suspicious new focal air space op acity, pleural effusion, or pneumothorax seen. Overlying sternal wires are redemonstrated. The cardi ac silhouette size is within normal limits on current study. The osseous structures are intact. Cho lecystectomy clips are noted on current study. IMPRESSION: Chronic emphysematous change without acute pulmonary process.
[2019-05-02] MEDS ORDERED: DEXAMETHASONE 4 MG TAB PO STA (09:39)
[2019-05-02] MEDS ORDERED: IPRATROPIUM-ALBUTEROL 3 ML NEB INHALATION STA ×2 (09:39→11:29)
--- NOTE | 2019-05-02 09:41 | ED ---
General Adult HPI - General Chief complaint: Shortness of Breath Stated complaint: Poss pneumonia Time Seen by Provider: 05/02/19 08:54 Source: patient Mode of arrival: ambulatory Limitations: no limitations - History of Present Illness Initial comments: Dictation was produced using [employer] dictation software. please excuse any grammatical, word or spelling errors. Chief Complaint: Patient is a 54-year-old female past medical history of COPD and fibromyalgia presents with URI-type symptoms. History of Present Illness: 54-year-old female she has past medical history of COPD and fibromyalgia. Over the last 2 weeks she is having progressive worsening coughing, constitutional symptoms. Patient does have an inhaler at home. She's been trying to use her inhaler with minimal improvement of her symptoms. Patient also has complaints of sore throat. Patient denies any overt sick contacts. Patient denies any chest pain however does feel some mild tightness in her chest with deep inspiration. She has been coughing uncontrollably and having difficulty sleeping secondary to the coughing the last 3-4 days. The ROS documented in this emergency department record has been reviewed and confirmed by me. Those systems with pertinent positive or negative responses have been documented in the HPI. All other systems are other negative and/or noncontributory. PHYSICAL EXAM: General Impression: Alert and oriented x3, not in acute distress HEENT: Normocephalic atraumatic, extra-ocular movements intact, pupils equal and reactive to light bilaterally, mucous membranes moist. Cardiovascular: Heart regular rate and rhythm, S1&S2 audible, no murmurs, rubs or gallops Chest: Mild bilateral lung wheezing Abdomen: Bowel sounds present, abdomen soft, non-tender, non-distended, no organomegaly Musculoskeletal: Pulses present and equal in all extremities, no peripheral edema Motor: no focal deficits noted Neurological: CN II-XII grossly intact, no focal motor or sensory deficits noted Skin: Intact with no visualized rashes Psych: Normal affect and mood ED course: 54-year-old female presents with clinical presentation consistent with COPD exacerbation likely secondary to viral URI. Vital signs upon arrival are within acceptable limits. Appetite evaluation obtained. CBC, metabolic panel is unremarkable. Rapid strep and influenza test is negative. Patient given breathing treatment and Decadron. Chest x-ray was obtained showing no acute processes. Patient reevaluated after breathing treatment with improvement of symptoms. Given patient's clinical presentation is concern of pneumonia despite lack of radiographic evidence. Patient still showing some mild signs of respiratory distress. Patient's EKG shows prolonged QT. Pending magnesium level. Patient given doxycycline and continue breathing treatments. Discussed patient case with Dr. Valdes who is covering for Dr. Chisholm except admission. They're nurse practitioner clarence Tee was notified per admitting physician request. EKG interpretation: Ventricular rate 90, normal sinus rhythm, IN interval 142, care is 122, QTc 516. No IN prolongation, nuchal presentation consistent with QT prolongation. - Related Data Home Medications Medication Instructions Recorded Confirmed Albuterol Inhaler [Ventolin Hfa 2 puff INHALATION RT-Q6H PRN 03/02/17 12/30/17 Inhaler] Levothyroxine Sodium [Synthroid] 88 mcg PO QAM 03/02/17 12/30/17 Ergocalciferol [Vitamin D2] 50,000 unit PO FR 12/21/17 12/30/17 Gabapentin [Neurontin] 300 mg PO TID 12/21/17 12/30/17 Montelukast Sodium [Singulair] 10 mg PO HS 12/21/17 12/30/17 Naproxen [Naprosyn] 500 mg PO Q12HR PRN 12/21/17 12/30/17 traMADol HCL [Ultram] 50 mg PO Q6HR PRN 12/21/17 12/30/17 Mometasone/Formoterol [Dulera 200 2 puff INHALATION RT-BID 12/30/17 12/30/17 Mcg/5 Mcg Inhaler] SUMAtriptan SUCCINATE [Imitrex] 100 mg PO DAILY PRN 12/30/17 12/30/17 Previous Rx's Medication Instructions Recorded Pantoprazole [Protonix] 40 mg PO AC-BRKFST #30 tablet. 03/05/17 Docusate [Colace] 100 mg PO BID #20 capsule 12/29/17 HYDROcodone/APAP 7.5-325MG [[place] 1 each PO Q4H PRN #30 tab 12/29/17 7.5] Ibuprofen [Motrin] 600 mg PO Q8HR PRN #30 tab 01/14/19 Allergies Allergy/AdvReac Type Severity Reaction Status Date / Time prednisolone Allergy Swelling Verified 01/14/19 12:27 Review of Systems ROS Statement: Those systems with pertinent positive or pertinent negative responses have been documented in the HPI. ROS Other: All systems not noted in ROS Statement are negative. 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 as a child Past Anesthesia/Blood Transfusion Reactions: Motion Sickness Additional Past Anesthesia/Blood Transfusion Reaction / Comment(s): never had a blood transfusion, unknown family hx.-pt. adopted."deathly of afraid of needles."had a hard time waking up one time from anesthesia." Past Psychological History: Anxiety, Depression Smoking Status: Current every day smoker Past Alcohol Use History: Rare Past Drug Use History: None Reported - Past Family History Mother Family Medical History: No Reported History Additional Family Medical History / Comment(s): Biological mother at age 33 y/o of brain aneuyrsm. Pt is adopted. General Exam Limitations: no limitations Course Vital Signs 05/02/19 05/02/19 05/02/19 08:47 09:00 09:56 Temperature 98.7 F Pulse Rate 90 90 Respiratory 20 22 Rate Blood Pressure 128/72 O2 Sat by Pulse 97 95 Oximetry 05/02/19 05/02/19 05/02/19 10:00 10:03 10:15 Temperature Pulse Rate 84 86 88 Respiratory Rate Blood Pressure O2 Sat by Pulse 94 L Oximetry 05/02/19 05/02/19 05/02/19 10:30 11:00 11:18 Temperature Pulse Rate 92 95 90 Respiratory 18 Rate Blood Pressure 131/80 O2 Sat by Pulse 92 L 93 L 97 Oximetry 05/02/19 05/02/19 11:49 11:53 Temperature Pulse Rate 96 99 Respiratory Rate Blood Pressure O2 Sat by Pulse Oximetry Medical Decision Making - Lab Data Result diagrams: 05/02/19 09:44 05/02/19 09:44 Lab Results 05/02/19 05/02/19 05/02/19 Range/Units 09:44 09:44 09:49 WBC 10.2 (3.8-10.6) k/uL RBC 4.89 (3.80-5.40) m/uL Hgb 15.3 (11.4-16.0) gm/dL Hct 45.9 (34.0-46.0) % MCV 94.0 (80.0-100.0) fL MCH 31.3 (25.0-35.0) pg MCHC 33.3 (31.0-37.0) g/dL RDW 15.9 H (11.5-15.5) % Plt Count 262 (150-450) k/uL Neutrophils % 66 % Lymphocytes % 23 % Monocytes % 5 % Eosinophils % 4 % Basophils % 1 % Neutrophils # 6.8 (1.3-7.7) k/uL Lymphocytes # 2.4 (1.0-4.8) k/uL Monocytes # 0.5 (0-1.0) k/uL Eosinophils # 0.4 (0-0.7) k/uL Basophils # 0.1 (0-0.2) k/uL Sodium 142 (137-145) mmol/L Potassium 4.1 (3.5-5.1) mmol/L Chloride 109 H (98-107) mmol/L Carbon Dioxide 29 (22-30) mmol/L Anion Gap 4 mmol/L BUN 5 L (7-17) mg/dL Creatinine 0.60 (0.52-1.04) mg/dL Est GFR (CKD-EPI)AfAm >90 (>60 ml/min/1.73 sqM) Est GFR (CKD-EPI)NonAf >90 (>60 ml/min/1.73 sqM) Glucose 91 (74-99) mg/dL Calcium 9.2 (8.4-10.2) mg/dL Total Bilirubin 0.7 (0.2-1.3) mg/dL AST 20 (14-36) U/L ALT 29 (9-52) U/L Alkaline Phosphatase 150 H (38-126) U/L Total Protein 6.9 (6.3-8.2) g/dL Albumin 4.1 (3.5-5.0) g/dL Influenza Type A RNA Not Detected (Not Detectd) Influenza Type B (PCR) Not Detected (Not Detectd) Group A Strep Rapid (Negative) 05/02/19 Range/Units 09:49 WBC (3.8-10.6) k/uL RBC (3.80-5.40) m/uL Hgb (11.4-16.0) gm/dL Hct (34.0-46.0) % MCV (80.0-100.0) fL MCH (25.0-35.0) pg MCHC (31.0-37.0) g/dL RDW (11.5-15.5) % Plt Count (150-450) k/uL Neutrophils % % Lymphocytes % % Monocytes % % Eosinophils % % Basophils % % Neutrophils # (1.3-7.7) k/uL Lymphocytes # (1.0-4.8) k/uL Monocytes # (0-1.0) k/uL Eosinophils # (0-0.7) k/uL Basophils # (0-0.2) k/uL Sodium (137-145) mmol/L Potassium (3.5-5.1) mmol/L Chloride (98-107) mmol/L Carbon Dioxide (22-30) mmol/L Anion Gap mmol/L BUN (7-17) mg/dL Creatinine (0.52-1.04) mg/dL Est GFR (CKD-EPI)AfAm (>60 ml/min/1.73 sqM) Est GFR (CKD-EPI)NonAf (>60 ml/min/1.73 sqM) Glucose (74-99) mg/dL Calcium (8.4-10.2) mg/dL Total Bilirubin (0.2-1.3) mg/dL AST (14-36) U/L ALT (9-52) U/L Alkaline Phosphatase (38-126) U/L Total Protein (6.3-8.2) g/dL Albumin (3.5-5.0) g/dL Influenza Type A RNA (Not Detectd) Influenza Type B (PCR) (Not Detectd) Group A Strep Rapid Negative (Negative) Disposition Clinical Impression: COPD exacerbation, Prolonged QT interval Disposition: ADMITTED IP TO THIS HOSP Condition: Fair Referrals: Sameer Bliss MD [Primary Care Provider] - 1-2 days Decision Time: 12:17
[2019-05-02 09:54] LABS: Basophils # (A) 0.1 k/uL (0-0.2); Basophils % (A) 1 %; Eosinophils # (A) 0.4 k/uL (0-0.7); Eosinophils % (A) 4 %; HCT 45.9 % (34.0-46.0); HGB 15.3 gm/dL (11.4-16.0); Lymphocytes # (A) 2.4 k/uL (1.0-4.8); Lymphocytes % (A) 23 %; MCH 31.3 pg (25.0-35.0); MCHC 33.3 g/dL (31.0-37.0); Mean Platelet Volume 7.6; Monocytes # (A) 0.5 k/uL (0-1.0); Monocytes % (A) 5 %; Neutrophils # (A) 6.8 k/uL (1.3-7.7); Neutrophils % (A) 66 %; Platelet Count 262 k/uL (150-450); RBC 4.89 m/uL (3.80-5.40); RDW 15.9 % (11.5-15.5); WBC 10.2 k/uL (3.8-10.6)
[2019-05-02 10:05] LABS: ALT 29 U/L (9-52); AST 20 U/L (14-36); African American GFR (CKD) >90 (>60 ml/min/1.73 sqM); Albumin 4.1 g/dL (3.5-5.0); Alkaline Phosphatase 150 U/L (38-126); Anion Gap 4 mmol/L; Blood Urea Nitrogen 5 mg/dL (7-17); Calcium 9.2 mg/dL (8.4-10.2); Carbon Dioxide 29 mmol/L (22-30); Chloride 109 mmol/L (98-107); Glucose 91 mg/dL (74-99); Potassium 4.1 mmol/L (3.5-5.1); Sodium 142 mmol/L (137-145); Total Bilirubin 0.7 mg/dL (0.2-1.3); Total Protein 6.9 g/dL (6.3-8.2)
[2019-05-02] MEDS ORDERED: DOXYCYCLINE 100 MG CAP PO STA (11:29)
[2019-05-02] MEDS: BENZONATATE 100 MG CAP PO SCH ×2 (12:56→21:00)
[2019-05-02] MEDS: IPRATROPIUM-ALBUTEROL 3 ML NEB INHALATION PRN ×2 (15:00→20:22)
[2019-05-02] MEDS ORDERED: ALBUTEROL INHALER 60 PUFF/8 GM INHALER INHALATION PRN (15:25)
[2019-05-02] MEDS: HYDROcodone/APAP 5-325MG 1 EACH TAB PO PRN (19:10)
[2019-05-02] MEDS: SYMBICORT 160-4.5 MCG INHALER INHALATION SCH (20:26)
[2019-05-02] MEDS: GABAPENTIN 400 MG CAP PO SCH (21:00)
[2019-05-03 06:09] LABS: Basophils % (A) 0 %; Eosinophils # (A) 0.2 k/uL (0-0.7); Eosinophils % (A) 1 %; HCT 46.4 % (34.0-46.0); HGB 14.9 gm/dL (11.4-16.0); Lymphocytes # (A) 1.5 k/uL (1.0-4.8); Lymphocytes % (A) 10 %; MCH 31.3 pg (25.0-35.0); MCHC 32.1 g/dL (31.0-37.0); MCV 97.5 fL (80.0-100.0); Mean Platelet Volume 7.3; Monocytes # (A) 0.5 k/uL (0-1.0); Monocytes % (A) 3 %; Neutrophils # (A) 13.2 k/uL (1.3-7.7); Neutrophils % (A) 85 %; Platelet Count 290 k/uL (150-450); RBC 4.76 m/uL (3.80-5.40); WBC 15.5 k/uL (3.8-10.6)
[2019-05-03 06:21] LABS: African American GFR (CKD) >90 (>60 ml/min/1.73 sqM); Anion Gap 7 mmol/L; Blood Urea Nitrogen 8 mg/dL (7-17); Calcium 9.8 mg/dL (8.4-10.2); Carbon Dioxide 24 mmol/L (22-30); Chloride 109 mmol/L (98-107); Glucose 194 mg/dL (74-99); Potassium 4.5 mmol/L (3.5-5.1); Sodium 140 mmol/L (137-145)
[2019-05-03] MEDS ORDERED: LEVOTHYROXINE 88 MCG TAB PO SCH (06:30)
[2019-05-03] MEDS: SYMBICORT 160-4.5 MCG INHALER INHALATION SCH (07:15)
[2019-05-03] MEDS: IPRATROPIUM-ALBUTEROL 3 ML NEB INHALATION PRN ×2 (07:15→11:53)
[2019-05-03] MEDS ORDERED: predniSONE 20 MG TAB PO SCH (09:00)
[2019-05-03] MEDS ORDERED: NICOTINE 21MG/24HR PATCH TRANSDERM SCH (09:00)
[2019-05-03 09:13] VITALS: TEMP 97.5
[2019-05-03] MEDS: GABAPENTIN 400 MG CAP PO SCH (09:33)
[2019-05-03] MEDS: BENZONATATE 100 MG CAP PO SCH (09:34)
[2019-05-03] MEDS: HYDROcodone/APAP 5-325MG 1 EACH TAB PO PRN (10:24)
[2019-05-03 12:25] VITALS: BP 147/78; PULSE 88; RESP 18
[2019-05-03] MEDS ORDERED: DOXYCYCLINE 100 MG CAP PO SCH (12:30)
--- NOTE | 2019-05-03 14:12 | P.HPIM ---
History of Present Illness H&P Date: 05/03/19 Chief Complaint: Worsening shortness of breath Please use This as H & P AND DISCHARGE SUMMARY This is a 54-year-old female, nicotine dependent, history of COPD, fibromyalgia, osteoarthritis, hyperlipidemia, PFO repaired at age 6, presented to the ER with complaints of worsening shortness of breath, cough over the last 2 weeks. States she ran out of her nebulizer solutions, using her inhaler. Reports sore throat. Chest x-ray nonacute. CBC BMP unremarkable. Rapid strep and influenza negative. Final strep culture pending with final results to be faxed to Dr. Bliss. Denies fever or chills. Denies chest pain, palpitations. Margot ntained on nebulized bronchodilators, antibiotics , Decadron in the ER . EKG reported prolonged QT 0.51.Lexapro discontinued. This morning QT normal, 0.36 .telemetry sinus rhythm .Significant clinical improvement, patient is being discharged home with instructions to follow-up with Dr. Bliss on Monday. No IV steroids for prednisone as patient states she is ALLERGIC to. Afebrile. Review of Systems Review of Systems 14 point review of system was conducted. All negative other than as mentioned in HPI. Past Medical History Past Medical History: COPD, Fibromyalgia, GERD/Reflux, Hyperlipidemia, Myocardial Infarction (OK), Osteoarthritis (OA) Additional Past Medical History / Comment(s): Pt states she has had a OK but does not know when or where she was treated, generalized pain and chronic cervical and lumbar pain, bilateral carpal tunnel syndrome, bilateral lower extremity neuropathy, R hand/arm numbness running from thumb up into forearm, 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 Last Myocardial Infarction Date:: unkn History of Any Multi-Drug Resistant Organisms: None Reported Past Surgical History: Section, Cholecystectomy, Hernia Repair, Hysterectomy, Tubal Ligation Additional Past Surgical History / Comment(s): Parathyroidectomy-noncancerous, open heart surgery at age 6 to close a hole in heart, R eye surgery to remove benign tumors, umbilical hernia surgery x 2, colonoscopy with benign polypectomy. Past Anesthesia/Blood Transfusion Reactions: Motion Sickness Additional Past Anesthesia/Blood Transfusion Reaction / Comment(s): Difficulty waking. Smoking Status: Current every day smoker - Past Family History Father History Unknown: Yes Additional Family Medical History / Comment(s): Pt is adopted. Mother Family Medical History: No Reported History Additional Family Medical History / Comment(s): Biological mother at age 33 y/o of brain aneuyrsm. Pt is adopted. Medications and Allergies Home Medications Medication Instructions Recorded Confirmed Type Levothyroxine Sodium [Synthroid] 88 mcg PO QAM 03/02/17 05/02/19 History Naproxen [Naprosyn] 500 mg PO Q12HR PRN 12/21/17 05/02/19 History Mometasone/Formoterol [Dulera 200 2 puff INHALATION RT-BID 12/30/17 05/02/19 History Mcg/5 Mcg Inhaler] SUMAtriptan SUCCINATE [Imitrex] 100 mg PO DAILY PRN 12/30/17 05/02/19 History Gabapentin 1,200 mg PO BID 05/02/19 05/02/19 History Albuterol Inhaler [Ventolin Hfa 2 puff INHALATION RT-Q6H PRN #1 inh 05/03/19 Rx Inhaler] Doxycycline [Vibramycin] 100 mg PO BID #10 cap 05/03/19 Rx Ipratropium-Albuterol Nebulize 3 ml INHALATION QID #120 ampul.neb 05/03/19 Rx [Duoneb 0.5 mg-3 mg/3 ml Soln] Nicotine 21Mg/24Hr Patch [Habitrol] 1 patch TRANSDERM DAILY #30 patch 05/03/19 Rx Allergies Allergy/AdvReac Type Severity Reaction Status Date / Time bupivacaine [From Marcaine] Allergy Swelling Verified 05/02/19 14:43 methylprednisolone Allergy Swelling Verified 05/02/19 14:43 [From Depo-Medrol] prednisolone Allergy Swelling Verified 05/02/19 14:43 duloxetine [From Cymbalta] AdvReac FATIGUE Verified 05/02/19 14:43 pregabalin [From Lyrica] AdvReac DEPRESSION Verified 05/02/19 14:43 Physical Exam Vitals: Vital Signs Temp Pulse Pulse Resp BP Pulse Ox 05/03/19 12:02 88 05/03/19 12:00 97.5 F L 88 18 147/78 96 05/03/19 11:53 84 05/03/19 08:00 97.5 F L 96 16 103/69 93 L 05/03/19 07:28 92 06/14/19 07:16 92 05/03/19 04:00 97.4 F L 83 18 105/70 93 L 05/03/19 03:51 78 18 05/03/19 00:00 97.6 F 100 18 102/58 96 05/02/19 20:32 91 05/02/19 20:22 91 95 05/02/19 20:00 91 18 05/02/19 19:38 97.8 F 97 18 122/72 96 05/02/19 16:00 98.2 F 98 18 96/61 92 L 05/02/19 15:09 88 05/02/19 15:01 84 Intake and Output 05/02/19 05/03/19 05/03/19 22:59 06:59 14:59 Intake Total 640 100 Balance 640 100 Intake: Oral 640 100 Other: Voiding Method Toilet # Voids 1 3 GENERAL EXAM: Alert and oriented 3, no acute distress. HEAD: Normocephalic. EYES: Normal reaction of pupils, equal size. NOSE: Clear with pink turbinates. THROAT: No erythema or exudates. NECK: No masses, no JVD. CHEST: No chest wall deformity. LUNGS: Equal air entry with no crackles, occasional fine expiratory wheeze, no rhonchi or dullness. CVS: S1 and S2 normal with no audible mumurs, regular rhythm. ABDOMEN: Soft, nontender, nondistended, positive bowel sounds. No palpable masses. SPINE: No scoliosis or deformity SKIN: No rashes CENTRAL NERVOUS SYSTEM: No focal deficits, tone is normal in all 4 extremities. Extremities: There is no peripheral edema. No clubbing, no cyanosis. Peripheral pulses are intact. Results CBC & Chem 7: 05/03/19 05:53 05/03/19 05:53 Labs: Abnormal Lab Results - Last 24 Hours (Table) 05/03/19 05/03/19 Range/Units 05:53 05:53 WBC 15.5 H (3.8-10.6) k/uL Hct 46.4 H (34.0-46.0) % Neutrophils # 13.2 H (1.3-7.7) k/uL Chloride 109 H (98-107) mmol/L Creatinine 0.45 L (0.52-1.04) mg/dL Glucose 194 H (74-99) mg/dL Microbiology - Last 24 Hours (Table) 05/02/19 09:49 Group A Strep Throat Culture - Preliminary Throat Thrombosis Risk Factor Assmnt - Choose All That Apply Any of the Below Risk Factors Present?: Yes Each Factor Represents 1 point: Abnormal pulmonary function (COPD), Age 41-60 years, Obesity (BMI >25) Other Risk Factors: No Other congenital or acquired thrombophilia - If yes, enter type in comment: No Thrombosis Risk Factor Assessment Total Risk Factor Score: 3 Thrombosis Risk Factor Assessment Level: Moderate Risk Assessment and Plan Assessment: -Acute exacerbation of chronic obstructive pulmonary disease. -QT prolongation, Lexapro discontinued, resolved. -Chronic and ongoing tobacco dependence. -History of anxiety/depression. - Hyperlipidemia. - Fibromyalgia. -Osteoarthritis. Plan: Continue on current medication regime ,monitoring and symptomatic treatment. Home meds reviewed and resumed. No IV steroids or prednisone- patient states ALLERGIC to. Lexapro has been discontinued as patient presented with QT prolongation. Significant clinical improvement. Patient is being discharged home in a stable condition with guarded prognosis. Instructed to follow with Dr. Bliss on Monday. Discharge Medication List Levothyroxine Sodium [Synthroid] 88 mcg PO QAM 03/02/17 [History] Naproxen [Naprosyn] 500 mg PO Q12HR PRN 12/21/17 [History] Mometasone/Formoterol [Dulera 200 Mcg/5 Mcg Inhaler] 2 puff INHALATION RT-BID 12/30/17 [History] SUMAtriptan SUCCINATE [Imitrex] 100 mg PO DAILY PRN 12/30/17 [History] Gabapentin 1,200 mg PO BID 05/02/19 [History] Albuterol Inhaler [Ventolin Hfa Inhaler] 2 puff INHALATION RT-Q6H PRN #1 inh 05/03/19 [Rx] Doxycycline [Vibramycin] 100 mg PO BID #10 cap 05/03/19 [Rx] Ipratropium-Albuterol Nebulize [Duoneb 0.5 mg-3 mg/3 ml Soln] 3 ml INHALATION QID #120 ampul.neb 05/03/19 [Rx] Nicotine 21Mg/24Hr Patch [Habitrol] 1 patch TRANSDERM DAILY #30 patch 05/03/19 [Rx] The impression and plan of care has been dictated as directed. : I performed a history and examination of this patient, discussed the same with the dictator. I agree with the dictator's note ,documented as a scribe. Any additional findings or plans will be noted. Time taken: 35 minutes
== END 2019-05-03 15:18 | disposition home or self-care (01) ==
LOC: EC 08:34 → 1SOBS 12:13
PROVIDERS: ADMIT Family Medicine; ATTEND Family Medicine
DX: J44.1 Chronic obstructive pulmonary disease with (acute) exacerbation (principal); I45.81 Long QT syndrome; T43.225A Adverse effect of selective serotonin reuptake inhibitors, initial encounter; E78.5 Hyperlipidemia, unspecified; M79.7 Fibromyalgia; G62.9 Polyneuropathy, unspecified; E89.2 Postprocedural hypoparathyroidism; M19.90 Unspecified osteoarthritis, unspecified site; F17.200 Nicotine dependence, unspecified, uncomplicated; K21.9 Gastro-esophageal reflux disease without esophagitis; J02.9 Acute pharyngitis, unspecified; F32.9 Major depressive disorder, single episode, unspecified; F41.9 Anxiety disorder, unspecified; E66.9 Obesity, unspecified; Z68.28 Body mass index [BMI] 28.0-28.9, adult; G56.03 Carpal tunnel syndrome, bilateral upper limbs; G89.29 Other chronic pain; M54.2 Cervicalgia; M54.5 Low back pain; Z79.890 Hormone replacement therapy; Z79.51 Long term (current) use of inhaled steroids; Z79.1 Long term (current) use of non-steroidal anti-inflammatories (NSAID); Z79.899 Other long term (current) drug therapy; Z88.4 Allergy status to anesthetic agent; Z88.8 Allergy status to other drugs, medicaments and biological substances; Z90.49 Acquired absence of other specified parts of digestive tract; Z86.010 Personal history of colon polyps; Z90.710 Acquired absence of both cervix and uterus; I25.2 Old myocardial infarction; Z87.74 Personal history of (corrected) congenital malformations of heart and circulatory system; Z82.49 Family history of ischemic heart disease and other diseases of the circulatory system
CPT/HCPCS: 99285; 36415; 94640 ×4; 93005; 80053; 80048; 83735; 85025 ×2; 87081; 87430; 87502; 71046; G0378 ×2; S4990; J8540; J7512

== ENCOUNTER 2019-07-12 23:30 | Emergency (ER) | payer OTHER ==
[2019-07-12 23:44] VITALS: TEMP 97.8
[2019-07-12] MEDS ORDERED: MORPHINE SULFATE 4 MG/ML SYRINGE IV STA (23:56)
[2019-07-12] MEDS ORDERED: SODIUM CHLORIDE 0.9% 1,000 ML IV STA (23:56)
[2019-07-12] MEDS ORDERED: ONDANSETRON 4 MG/2 ML VIAL IVP STA (23:56)
--- NOTE | 2019-07-12 23:59 | ED ---
Abdominal Pain HPI - General Chief Complaint: Abdominal Pain Stated Complaint: Abd Pain Time Seen by Provider: 07/12/19 23:50 Source: patient, RN notes reviewed Mode of arrival: ambulatory Limitations: no limitations - History of Present Illness Initial Comments: 54-year-old female presents emergency Department chief complaint of mid abdominal pain. Patient states that she's had some discomfort for a long period time but they pain has changed in worsen. Patient states severe pain in her mid abdomen. She believes it is related to an old hernia. Patient states that she had mesh placed years ago and states that she had a tear in it. Patient also states that she's had a prior cholecystectomy but does not surgery was for either. She denies any nausea vomiting. She's had change in her stool in which she has no [place], constipation and sometimes diarrhea. She denies any recent fevers chills no chest pain or shortness breath no dysuria no hematuria. - Related Data Home Medications Medication Instructions Recorded Confirmed Levothyroxine Sodium [Synthroid] 88 mcg PO QAM 03/02/17 05/02/19 Naproxen [Naprosyn] 500 mg PO Q12HR PRN 12/21/17 05/02/19 Mometasone/Formoterol [Dulera 200 2 puff INHALATION RT-BID 12/30/17 05/02/19 Mcg/5 Mcg Inhaler] SUMAtriptan SUCCINATE [Imitrex] 100 mg PO DAILY PRN 12/30/17 05/02/19 Gabapentin 1,200 mg PO BID 05/02/19 05/02/19 Previous Rx's Medication Instructions Recorded Albuterol Inhaler [Ventolin Hfa 2 puff INHALATION RT-Q6H PRN #1 inh 05/03/19 Inhaler] Doxycycline [Vibramycin] 100 mg PO BID #10 cap 05/03/19 Ipratropium-Albuterol Nebulize 3 ml INHALATION QID #120 ampul.neb 05/03/19 [Duoneb 0.5 mg-3 mg/3 ml Soln] Nicotine 21Mg/24Hr Patch [Habitrol] 1 patch TRANSDERM DAILY #30 patch 05/03/19 Allergies Allergy/AdvReac Type Severity Reaction Status Date / Time bupivacaine [From Marcaine] Allergy Swelling Verified 07/12/19 23:44 methylprednisolone Allergy Swelling Verified 07/12/19 23:44 [From Depo-Medrol] prednisolone Allergy Swelling Verified 07/12/19 23:44 duloxetine [From Cymbalta] AdvReac FATIGUE Verified 07/12/19 23:44 pregabalin [From Lyrica] AdvReac DEPRESSION Verified 07/12/19 23:44 Review of Systems ROS Statement: Those systems with pertinent positive or pertinent negative responses have been documented in the HPI. ROS Other: All systems not noted in ROS Statement are negative. 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 Last Myocardial Infarction Date:: unkn History of Any Multi-Drug Resistant Organisms: None Reported Past Surgical History: Section, Cholecystectomy, Hernia Repair, Hystere ctomy, Tubal Ligation Additional Past Surgical History / Comment(s): Parathyroidectomy-noncancerous, open heart surgery at age 6 to close a hole in heart, R eye surgery to remove benign tumors, umbilical hernia surgery x 2, colonoscopy with benign polypectomy. Past Anesthesia/Blood Transfusion Reactions: Motion Sickness Additional Past Anesthesia/Blood Transfusion Reaction / Comment(s): Difficulty waking. Past Psychological History: Anxiety, Depression Smoking Status: Current every day smoker Past Alcohol Use History: None Reported Past Drug Use History: None Reported - Past Family History Father History Unknown: Yes Additional Family Medical History / Comment(s): Pt is adopted. Mother Family Medical History: No Reported History Additional Family Medical History / Comment(s): Biological mother at age 33 y/o of brain aneuyrsm. Pt is adopted. General Exam Limitations: no limitations General appearance: alert, in no apparent distress Head exam: Present: atraumatic, normocephalic, normal inspection Neck exam: Present: normal inspection. Absent: tenderness, meningismus, lymphadenopathy Respiratory exam: Present: normal lung sounds bilaterally. Absent: respiratory distress, wheezes, rales, rhonchi, stridor Cardiovascular Exam: Present: regular rate, normal rhythm, normal heart sounds. Absent: systolic murmur, diastolic murmur, rubs, gallop, clicks GI/Abdominal exam: Present: soft, tenderness (Moderate mid abdominal tenderness), normal bowel sounds. Absent: distended, guarding, rebound, rigid Back exam: Absent: CVA tenderness (R), CVA tenderness (L) Skin exam: Present: warm, dry, intact, normal color. Absent: rash Course Vital Signs 07/12/19 07/13/19 23:41 01:52 Temperature 97.8 F Pulse Rate 85 65 Respiratory 18 19 Rate Blood Pressure 154/87 141/93 O2 Sat by Pulse 98 96 Oximetry Medical Decision Making - Medical Decision Making 54-year-old female presents emergency from for abdominal pain. Patient complete workup including lab CT and urinalysis with no major findings other than small periumbilical fat hernia. Patient seemed to do better at rest. Patient will be given a work note for tomorrow she is advised follow-up with surgeon on Monday - Lab Data Result diagrams: 07/13/19 00:09 07/13/19 00:09 Lab Results 07/13/19 07/13/19 07/13/19 Range/Units 00:09 00:09 00:09 WBC 6.9 (3.8-10.6) k/uL RBC 4.79 (3.80-5.40) m/uL Hgb 15.7 (11.4-16.0) gm/dL Hct 46.2 H (34.0-46.0) % MCV 96.5 (80.0-100.0) fL MCH 32.8 (25.0-35.0) pg MCHC 34.0 (31.0-37.0) g/dL RDW 14.6 (11.5-15.5) % Plt Count 176 (150-450) k/uL Neutrophils % 55 % Lymphocytes % 35 % Monocytes % 4 % Eosinophils % 4 % Basophils % 1 % Neutrophils # 3.9 (1.3-7.7) k/uL Lymphocytes # 2.4 (1.0-4.8) k/uL Monocytes # 0.3 (0-1.0) k/uL Eosinophils # 0.2 (0-0.7) k/uL Basophils # 0.1 (0-0.2) k/uL Sodium 140 (137-145) mmol/L Potassium 4.2 (3.5-5.1) mmol/L Chloride 107 (98-107) mmol/L Carbon Dioxide 24 (22-30) mmol/L Anion Gap 9 mmol/L BUN 11 (7-17) mg/dL Creatinine 0.82 (0.52-1.04) mg/dL Est GFR (CKD-EPI)AfAm >90 (>60 ml/min/1.73 sqM) Est GFR (CKD-EPI)NonAf 82 (>60 ml/min/1.73 sqM) Glucose 115 H (74-99) mg/dL Plasma Lactic Acid Mynor 0.9 (0.7-2.0) mmol/L Calcium 10.1 (8.4-10.2) mg/dL Total Bilirubin 0.6 (0.2-1.3) mg/dL AST 24 (14-36) U/L ALT 18 (9-52) U/L Alkaline Phosphatase 92 (38-126) U/L Total Protein 7.3 (6.3-8.2) g/dL Albumin 4.3 (3.5-5.0) g/dL Amylase 60 (30-110) U/L Lipase 247 (23-300) U/L Urine Color Urine Appearance (Clear) Urine pH (5.0-8.0) Ur Specific [place] (1.001-1.035) Urine Protein (Negative) Urine Glucose (UA) (Negative) Urine Ketones (Negative) Urine Blood (Negative) Urine Nitrite (Negative) Urine Bilirubin (Negative) Urine Urobilinogen (<2.0) mg/dL Ur Leukocyte Esterase (Negative) 07/13/19 Range/Units 02:03 WBC (3.8-10.6) k/uL RBC (3.80-5.40) m/uL Hgb (11.4-16.0) gm/dL Hct (34.0-46.0) % MCV (80.0-100.0) fL MCH (25.0-35.0) pg MCHC (31.0-37.0) g/dL RDW (11.5-15.5) % Plt Count (150-450) k/uL Neutrophils % % Lymphocytes % % Monocytes % % Eosinophils % % Basophils % % Neutrophils # (1.3-7.7) k/uL Lymphocytes # (1.0-4.8) k/uL Monocytes # (0-1.0) k/uL Eosinophils # (0-0.7) k/uL Basophils # (0-0.2) k/uL Sodium (137-145) mmol/L Potassium (3.5-5.1) mmol/L Chloride (98-107) mmol/L Carbon Dioxide (22-30) mmol/L Anion Gap mmol/L BUN (7-17) mg/dL Creatinine (0.52-1.04) mg/dL Est GFR (CKD-EPI)AfAm (>60 ml/min/1.73 sqM) Est GFR (CKD-EPI)NonAf (>60 ml/min/1.73 sqM) Glucose (74-99) mg/dL Plasma Lactic Acid [place] (0.7-2.0) mmol/L Calcium (8.4-10.2) mg/dL Total Bilirubin (0.2-1.3) mg/dL AST (14-36) U/L ALT (9-52) U/L Alkaline Phosphatase (38-126) U/L Total Protein (6.3-8.2) g/dL Albumin (3.5-5.0) g/dL Amylase (30-110) U/L Lipase (23-300) U/L Urine Color Colorless Urine Appearance Clear (Clear) Urine pH 5.5 (5.0-8.0) Ur Specific [place] 1.024 (1.001-1.035) Urine Protein Negative (Negative) Urine Glucose (UA) Negative (Negative) Urine Ketones Negative (Negative) Urine Blood Negative (Negative) Urine Nitrite Negative (Negative) Urine Bilirubin Negative (Negative) Urine Urobilinogen <2.0 (<2.0) mg/dL Ur Leukocyte Esterase Negative (Negative) - EKG Data EKG Comments: EKG performed at 1:23 normal sinus rhythm with a right bundle rate 66 MI 140 QRS 142 QT status QTC 462/484 Disposition Clinical Impression: Abdominal pain, Periumbilical hernia Disposition: HOME SELF-CARE Condition: Stable Instructions (If sedation given, give patient instructions): Abdominal Pain (ED) Additional Instructions: Please return to the Emergency Department if symptoms worsen or any other concerns. Is patient prescribed a controlled substance at d/c from ED?: No Referrals: Sameer Bliss MD [Primary Care Provider] - 1-2 days Kate Whelan DO [Doctor of Osteopathic Medicine] - 1-2 days Time of Disposition: 02:38
[2019-07-13 00:34] LABS: Basophils # (A) 0.1 k/uL (0-0.2); Basophils % (A) 1 %; Eosinophils # (A) 0.2 k/uL (0-0.7); Eosinophils % (A) 4 %; HCT 46.2 % (34.0-46.0); HGB 15.7 gm/dL (11.4-16.0); Lymphocytes # (A) 2.4 k/uL (1.0-4.8); Lymphocytes % (A) 35 %; MCH 32.8 pg (25.0-35.0); MCV 96.5 fL (80.0-100.0); Mean Platelet Volume 8.2; Monocytes # (A) 0.3 k/uL (0-1.0); Monocytes % (A) 4 %; Neutrophils # (A) 3.9 k/uL (1.3-7.7); Neutrophils % (A) 55 %; Platelet Count 176 k/uL (150-450); RBC 4.79 m/uL (3.80-5.40); RDW 14.6 % (11.5-15.5); WBC 6.9 k/uL (3.8-10.6)
[2019-07-13 00:46] LABS: ALT 18 U/L (9-52); AST 24 U/L (14-36); African American GFR (CKD) >90 (>60 ml/min/1.73 sqM); Albumin 4.3 g/dL (3.5-5.0); Alkaline Phosphatase 92 U/L (38-126); Amylase 60 U/L (30-110); Anion Gap 9 mmol/L; Blood Urea Nitrogen 11 mg/dL (7-17); Calcium 10.1 mg/dL (8.4-10.2); Carbon Dioxide 24 mmol/L (22-30); Chloride 107 mmol/L (98-107); Glucose 115 mg/dL (74-99); Non-African American GFR(CKD) 82 (>60 ml/min/1.73 sqM); Potassium 4.2 mmol/L (3.5-5.1); Sodium 140 mmol/L (137-145); Total Bilirubin 0.6 mg/dL (0.2-1.3); Total Protein 7.3 g/dL (6.3-8.2)
--- NOTE | 2019-07-13 01:16 | CT ---
EXAM: CT Abdomen and Pelvis With Intravenous Contrast CLINICAL HISTORY: abdominal pain TECHNIQUE: Axial computed tomography images of the abdomen and pelvis with intravenous contrast. CTDI is 0.085, 0.085, 9.5, 9.6 mGy and DLP is 804 mGy-cm. This CT exam was performed using one or more of the following dose reduction techniques: automated exposure control, adjustment of the mA and/or kV according to patient size, and/or use of iterative reconstruction technique. COMPARISON: 03/02/2017 FINDINGS: Lung bases: Unremarkable. No mass. No consolidation. ABDOMEN: Liver: Enlarged nodular liver. No focal lesions. Gallbladder and bile ducts: Gallbladder is absent. Pancreas: Unremarkable. Spleen: Unremarkable. Adrenals: Unremarkable. Kidneys and ureters: Unremarkable. No solid mass. No hydronephrosis. Stomach and bowel: Bowel is nondilated. Colonic diverticulosis without focal inflammatory change. PELVIS: Appendix: No findings to suggest acute appendicitis. Bladder: Unremarkable. Reproductive: Uterus is absent. ABDOMEN and PELVIS: Intraperitoneal space: Unremarkable. No free air. Bones/joints: No acute osseous abnormality. Soft tissues: Small fat-containing periumbilical hernia. Vasculature: Aortic atherosclerosis. No abdominal aortic aneurysm. Lymph nodes: Unremarkable. IMPRESSION: No acute findings.
[2019-07-13] MEDS ORDERED: KETOROLAC 30 MG/ML 1 ML VIAL IVP STA (01:52)
[2019-07-13 02:26] LABS: Appearance,Urine Clear (Clear); Bilirubin,Urine Negative (Negative); Blood,Urine Negative (Negative); Color,Urine Colorless; Glucose,Urine (UA) Negative (Negative); Ketones,Urine Negative (Negative); Leukocyte Esterase,Urine Negative (Negative); Nitrite,Urine Negative (Negative); PH, Urine 5.5 (5.0-8.0); Protein,Urine Negative (Negative); Specific Gravity,Urine 1.024 (1.001-1.035); Urobilinogen,Urine <2.0 mg/dL (<2.0)
[2019-07-13] MEDS ORDERED: ACET/COD 300 MG/30 MG STARTER PACK 6 TAB BTL PO STA (02:41)
[2019-07-13 03:16] VITALS: BP 144/95; PULSE 60; RESP 18
== END 2019-07-13 03:04 | disposition home or self-care (01) ==
LOC: EC 23:30
DX: K42.9 Umbilical hernia without obstruction or gangrene (principal); J44.9 Chronic obstructive pulmonary disease, unspecified; M79.7 Fibromyalgia; I25.2 Old myocardial infarction; F17.200 Nicotine dependence, unspecified, uncomplicated; Z90.49 Acquired absence of other specified parts of digestive tract; Z98.890 Other specified postprocedural states; Z90.710 Acquired absence of both cervix and uterus; Z98.51 Tubal ligation status; Z79.890 Hormone replacement therapy; Z79.51 Long term (current) use of inhaled steroids; Z79.899 Other long term (current) drug therapy; Z88.4 Allergy status to anesthetic agent; Z88.8 Allergy status to other drugs, medicaments and biological substances
CPT/HCPCS: 36415; 93005; 80053; 82150; 83605; 83690; 85025; 81003; 74177; 99284; 96374; 96375 ×2; 96361 ×2; J2270; J2405; J1885; Q9967

== ENCOUNTER 2020-09-25 10:41 | Inpatient (IN) | payer OTHER ==
[2020-09-25 12:05] LABS: Basophils # (A) 0.1 k/uL (0-0.2); Basophils % (A) 1 %; Eosinophils # (A) 0.2 k/uL (0-0.7); Eosinophils % (A) 2 %; HCT 45.1 % (34.0-46.0); HGB 14.7 gm/dL (11.4-16.0); Lymphocytes # (A) 1.9 k/uL (1.0-4.8); Lymphocytes % (A) 22 %; MCH 34.3 pg (25.0-35.0); MCHC 32.6 g/dL (31.0-37.0); MCV 105.3 fL (80.0-100.0); Macrocytosis Moderate; Mean Platelet Volume 7.6; Monocytes # (A) 0.4 k/uL (0-1.0); Monocytes % (A) 5 %; Neutrophils # (A) 6.1 k/uL (1.3-7.7); Neutrophils % (A) 70 %; Platelet Count 205 k/uL (150-450); RBC 4.29 m/uL (3.80-5.40); RDW 15.3 % (11.5-15.5); WBC 8.8 k/uL (3.8-10.6)
[2020-09-25 12:29] LABS: INR 0.9 (<1.2); Partial Thromboplastin Time 22.8 sec (22.0-30.0); Prothrombin Time 9.3 sec (9.0-12.0)
[2020-09-25 12:32] LABS: ALT 266 U/L (4-34); AST 66 U/L (14-36); African American GFR (CKD) >90 (>60 ml/min/1.73 sqM); Albumin 4.2 g/dL (3.5-5.0); Alkaline Phosphatase 174 U/L (38-126); Amylase 163 U/L (30-110); Anion Gap 5 mmol/L; Blood Urea Nitrogen 8 mg/dL (7-17); Calcium 9.5 mg/dL (8.4-10.2); Carbon Dioxide 26 mmol/L (22-30); Chloride 105 mmol/L (98-107); Glucose 124 mg/dL (74-99); Lipase 1002 U/L (23-300); Non-African American GFR(CKD) >90 (>60 ml/min/1.73 sqM); Potassium 4.5 mmol/L (3.5-5.1); Sodium 136 mmol/L (137-145); Total Bilirubin 0.6 mg/dL (0.2-1.3); Total Protein 7.1 g/dL (6.3-8.2)
[2020-09-25 13:07] LABS: Appearance,Urine Clear (Clear); Bilirubin,Urine Negative (Negative); Blood,Urine Negative (Negative); Color,Urine Light Yellow; Glucose,Urine (UA) Negative (Negative); Ketones,Urine Negative (Negative); Leukocyte Esterase,Urine Negative (Negative); Nitrite,Urine Negative (Negative); PH, Urine 6.5 (5.0-8.0); Protein,Urine Negative (Negative); Specific Gravity,Urine 1.004 (1.001-1.035); Urobilinogen,Urine <2.0 mg/dL (<2.0)
[2020-09-25] MEDS ORDERED: SODIUM CHLORIDE 0.9% 2,000 ML IV ONE (13:20)
[2020-09-25] MEDS ORDERED: HYDROmorphone 1 MG/ML 1 ML SYRINGE IVP STA (13:20)
[2020-09-25] MEDS ORDERED: ONDANSETRON 4 MG/2 ML VIAL IVP STA (13:20)
--- NOTE | 2020-09-25 13:22 | ED ---
Abdominal Pain HPI - General Chief Complaint: Abdominal Pain Stated Complaint: Hernia/Abd Pain Time Seen by Provider: 09/25/20 11:23 Source: patient, RN notes reviewed Mode of arrival: ambulatory Limitations: no limitations - History of Present Illness Initial Comments: This a 55-year-old female presents emergency Department chief complaint severe abdominal pain. Patient states that she's been dealing with this for over a year. She states that she has a history of hernia. Patient states that she did see a surgeon along time ago and has no current surgeon. Patient states that she's been having increasing pain cannot tolerated today. Patient states that she's having decreased wall but she states that she has to take laxatives daily to help. Patient denies any dysuria hematuria denies any fevers or chills no chest pain or shortness of breath. She states that she feels very distended, bloated. - Related Data Home Medications Medication Instructions Recorded Confirmed Levothyroxine Sodium [Synthroid] 88 mcg PO QAM 03/02/17 09/25/20 Naproxen [Naprosyn] 500 mg PO Q12HR PRN 12/21/17 09/25/20 Allergies Allergy/AdvReac Type Severity Reaction Status Date / Time bupivacaine [From Marcaine] Allergy Swelling Verified 09/25/20 14:05 methylprednisolone Allergy Swelling Verified 09/25/20 14:05 [From Depo-Medrol] prednisolone Allergy Swelling Verified 09/25/20 14:05 duloxetine [From Cymbalta] AdvReac FATIGUE Verified 09/25/20 14:05 pregabalin [From Lyrica] AdvReac DEPRESSION Verified 09/25/20 14:05 Review of Systems ROS Statement: Those systems with pertinent positive or pertinent negative responses have been documented in the HPI. ROS Other: All systems not noted in ROS Statement are negative. 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 Last Myocardial Infarction Date:: unkn History of Any Multi-Drug Resistant Organisms: None Reported Past Surgical History: Section, Cholecystectomy, Hernia Repair, Hyste rectomy, Tubal Ligation Additional Past Surgical History / Comment(s): Parathyroidectomy-noncancerous, open heart surgery at age 6 to close a hole in heart, R eye surgery to remove benign tumors, umbilical hernia surgery x 2, colonoscopy with benign polypectomy. Past Anesthesia/Blood Transfusion Reactions: Motion Sickness Additional Past Anesthesia/Blood Transfusion Reaction / Comment(s): Difficulty waking. Past Psychological History: Anxiety, Depression Smoking Status: Current every day smoker Past Alcohol Use History: None Reported Past Drug Use History: None Reported - Past Family History Father History Unknown: Yes Additional Family Medical History / Comment(s): Pt is adopted. Mother Family Medical History: No Reported History Additional Family Medical History / Comment(s): Biological mother at age 33 y/o of brain aneuyrsm. Pt is adopted. General Exam Limitations: no limitations General appearance: alert, in no apparent distress Head exam: Present: atraumatic, normocephalic, normal inspection Neck exam: Present: normal inspection, full ROM. Absent: tenderness, meningismus, lymphadenopathy Respiratory exam: Present: normal lung sounds bilaterally. Absent: respiratory distress, wheezes, rales, rhonchi, stridor Cardiovascular Exam: Present: regular rate, normal rhythm, normal heart sounds. Absent: systolic murmur, diastolic murmur, rubs, gallop, clicks GI/Abdominal exam: Present: soft, distended, tenderness, rigid, normal bowel sounds. Absent: guarding, rebound Back exam: Absent: CVA tenderness (R), CVA tenderness (L) Neurological exam: Present: alert, oriented X3, CN II-XII intact Skin exam: Present: warm, dry, intact, normal color. Absent: rash Course Vital Signs 09/25/20 09/25/20 11:02 12:06 Temperature 98.0 F Pulse Rate 90 Respiratory 18 18 Rate Blood Pressure 144/90 O2 Sat by Pulse 99 Oximetry Medical Decision Making - Medical Decision Making 55-year-old presented for abdominal pain. Patient has evidence of acute pancreatitis. Lipase is 1000. CT shows evidence of from for changes. Patient will be admitted for IV fluid hydration, pain control we kept nothing by mouth until further evaluation. - Lab Data Result diagrams: 09/25/20 11:56 09/25/20 11:56 Lab Results 09/25/20 09/25/20 09/25/20 Range/Units 11:56 11:56 11:56 WBC 8.8 (3.8-10.6) k/uL RBC 4.29 (3.80-5.40) m/uL Hgb 14.7 (11.4-16.0) gm/dL Hct 45.1 (34.0-46.0) % MCV 105.3 H (80.0-100.0) fL MCH 34.3 (25.0-35.0) pg MCHC 32.6 (31.0-37.0) g/dL RDW 15.3 (11.5-15.5) % Plt Count 205 (150-450) k/uL Neutrophils % 70 % Lymphocytes % 22 % Monocytes % 5 % Eosinophils % 2 % Basophils % 1 % Neutrophils # 6.1 (1.3-7.7) k/uL Lymphocytes # 1.9 (1.0-4.8) k/uL Monocytes # 0.4 (0-1.0) k/uL Eosinophils # 0.2 (0-0.7) k/uL Basophils # 0.1 (0-0.2) k/uL Macrocytosis Moderate PT 9.3 (9.0-12.0) sec INR 0.9 (<1.2) APTT 22.8 (22.0-30.0) sec Sodium 136 L (137-145) mmol/L Potassium 4.5 (3.5-5.1) mmol/L Chloride 105 (98-107) mmol/L Carbon Dioxide 26 (22-30) mmol/L Anion Gap 5 mmol/L BUN 8 (7-17) mg/dL Creatinine 0.59 (0.52-1.04) mg/dL Est GFR (CKD-EPI)AfAm >90 (>60 ml/min/1.73 sqM) Est GFR (CKD-EPI)NonAf >90 (>60 ml/min/1.73 sqM) Glucose 124 H (74-99) mg/dL Plasma Lactic Acid [place] (0.7-2.0) mmol/L Calcium 9.5 (8.4-10.2) mg/dL Total Bilirubin 0.6 (0.2-1.3) mg/dL AST 66 H (14-36) U/L ALT 266 H (4-34) U/L Alkaline Phosphatase 174 H (38-126) U/L Total Protein 7.1 (6.3-8.2) g/dL Albumin 4.2 (3.5-5.0) g/dL Amylase 163 H (30-110) U/L Lipase 1002 H (23-300) U/L Urine Color Urine Appearance (Clear) Urine pH (5.0-8.0) Ur Specific [place] (1.001-1.035) Urine Protein (Negative) Urine Glucose (UA) (Negative) Urine Ketones (Negative) Urine Blood (Negative) Urine Nitrite (Negative) Urine Bilirubin (Negative) Urine Urobilinogen (<2.0) mg/dL Ur Leukocyte Esterase (Negative) 09/25/20 09/25/20 Range/Units 11:56 12:52 WBC (3.8-10.6) k/uL RBC (3.80-5.40) m/uL Hgb (11.4-16.0) gm/dL Hct (34.0-46.0) % MCV (80.0-100.0) fL MCH (25.0-35.0) pg MCHC (31.0-37.0) g/dL RDW (11.5-15.5) % Plt Count (150-450) k/uL Neutrophils % % Lymphocytes % % Monocytes % % Eosinophils % % Basophils % % Neutrophils # (1.3-7.7) k/uL Lymphocytes # (1.0-4.8) k/uL Monocytes # (0-1.0) k/uL Eosinophils # (0-0.7) k/uL Basophils # (0-0.2) k/uL Macrocytosis PT (9.0-12.0) sec INR (<1.2) APTT (22.0-30.0) sec Sodium (137-145) mmol/L Potassium (3.5-5.1) mmol/L Chloride (98-107) mmol/L Carbon Dioxide (22-30) mmol/L Anion Gap mmol/L BUN (7-17) mg/dL Creatinine (0.52-1.04) mg/dL Est GFR (CKD-EPI)AfAm (>60 ml/min/1.73 sqM) Est GFR (CKD-EPI)NonAf (>60 ml/min/1.73 sqM) Glucose (74-99) mg/dL Plasma Lactic Acid M[place] 1.1 (0.7-2.0) mmol/L Calcium (8.4-10.2) mg/dL Total Bilirubin (0.2-1.3) mg/dL AST (14-36) U/L ALT (4-34) U/L Alkaline Phosphatase (38-126) U/L Total Protein (6.3-8.2) g/dL Albumin (3.5-5.0) g/dL Amylase (30-110) U/L Lipase (23-300) U/L Urine Color Light Yellow Urine Appearance Clear (Clear) Urine pH 6.5 (5.0-8.0) Ur Specific [place] 1.004 (1.001-1.035) Urine Protein Negative (Negative) Urine Glucose (UA) Negative (Negative) Urine Ketones Negative (Negative) Urine Blood Negative (Negative) Urine Nitrite Negative (Negative) Urine Bilirubin Negative (Negative) Urine Urobilinogen <2.0 (<2.0) mg/dL Ur Leukocyte Esterase Negative (Negative) Disposition Clinical Impression: Acute pancreatitis Disposition: ADMITTED IP TO THIS [facility] Condition: Fair Referrals: Sameer Bliss MD [Primary Care Provider] - 1-2 days
--- NOTE | 2020-09-25 14:01 | CT ---
EXAMINATION TYPE: CT abdomen pelvis w con DATE OF EXAM: 09/25/2020 COMPARISON: CT 07/13/2019 HISTORY: Generalized pain CT DLP: 971.7 mGycm Automated exposure control for dose reduction was used. TECHNIQUE: Helical acquisition of images from the lung bases through the pelvis have been completed. CONTRAST: Performed without Oral Contrast and with IV Contrast, patient injected with 100 mL of Isovue 300. FINDINGS: Along the anterior abdominal wall there is a small hernia containing fat in the supraumbili celina region. There is a small hiatal hernia. LUNG BASES: No significant abnormality is appreciated. AORTA: No significant abnormality is appreciated. LIVER/GB: Patient is status post cholecystectomy. The liver is enlarged. Liver shows low attenuation likely due to hepatic steatosis.. PANCREAS: There is some mild inflammatory change present at the level of the tail the pancreas in the surrounding fat SPLEEN: No significant abnormality is seen. ADRENALS: Low-attenuation lesions within the bilateral adrenal glands are subcentimeter in size and l ikely represent adenomas KIDNEYS: No significant abnormality is seen. REPRODUCTIVE ORGANS: Not seen. BOWEL: Diverticular changes associated with the colon, colonic wall thickening is questioned. Surgic al clip present in the cul-de-sac region. There is retained fecal debris. Colonic interposition noted . FREE AIR: No Free Air visible. ASCITES: None visible. PELVIC ADENOPATHY: None visualized. RETROPERITONEAL ADENOPATHY: No Retroperitoneal Adenopathy visible. URINARY BLADDER: No significant abnormality is seen. OSSEOUS STRUCTURES: No significant interval change is seen. IMPRESSION: POSTOP CHANGES. HEPATOMEGALY AND HEPATIC STEATOSIS. PROBABLE ADRENAL ADENOMAS. CORRELATE FOR POSSIBLE PANCREATITIS, COLITIS. DIVERTICULOSIS AND ADDITIONAL FINDINGS ABOVE.
[2020-09-25] MEDS ORDERED: NALOXONE 0.4 MG/ML 1 ML VIAL IV PRN (14:11)
[2020-09-25] MEDS ORDERED: ONDANSETRON 4 MG/2 ML VIAL IVP PRN (14:11)
[2020-09-25] MEDS ORDERED: HYDROmorphone 0.5 MG/0.5 ML SYRINGE IVP PRN (14:11)
[2020-09-25] MEDS: SODIUM CHLORIDE 0.9% 1,000 ML IV SCH ×2 (15:05→22:39)
--- NOTE | 2020-09-25 15:09 | US ---
EXAMINATION TYPE: US gallbladder DATE OF EXAM: 09/25/2020 COMPARISON: CT abdomen pelvis 09/25/2020 CLINICAL HISTORY: pancreatitis. EXAM MEASUREMENTS: Liver Length: 15.8 cm Gallbladder Wall: Surgically absent per patient CBD: 0.3 cm Right Kidney: 9.0 x 3.9 x 3.9 cm Pancreas: Obscured by bowel gas Liver: Echogenic, with poor posterior beam penetration due to fatty infiltration Gallbladder: Surgically absent [employer]ume Cutter reports negative sonographic Garcia sign CBD: Normal as visualized, with distal portion obscured by bowel gas Right Kidney: Normal IMPRESSION: 1. Pancreas obscured by overlying bowel gas. 2. Fatty liver.
[2020-09-25] MEDS: HYDROmorphone 1 MG/ML 1 ML SYRINGE IVP PRN ×2 (18:53→22:36)
[2020-09-25] MEDS ORDERED: ACETAMINOPHEN IV (For NPO) 1,000 MG in EMPTY BAG 1 BAG IVPB PRN (22:28)
[2020-09-26] MEDS ORDERED: ACETAMINOPHEN IV (For NPO) 1,000 MG in EMPTY BAG 1 BAG IVPB SCH
[2020-09-26] MEDS: HYDROmorphone 1 MG/ML 1 ML SYRINGE IVP PRN ×3 (01:33→07:55)
[2020-09-26] MEDS: LEVOTHYROXINE 88 MCG TAB PO SCH (05:03)
[2020-09-26 06:40] LABS: ALT 204 U/L (4-34); AST 36 U/L (14-36); African American GFR (CKD) >90 (>60 ml/min/1.73 sqM); Albumin 3.7 g/dL (3.5-5.0); Albumin/Globulin Ratio 1.4; Alkaline Phosphatase 135 U/L (38-126); Amylase 86 U/L (30-110); Anion Gap 2 mmol/L; Blood Urea Nitrogen 10 mg/dL (7-17); Calcium 8.4 mg/dL (8.4-10.2); Carbon Dioxide 29 mmol/L (22-30); Chloride 106 mmol/L (98-107); Globulin 2.6 g/dL; Glucose 117 mg/dL (74-99); Lipase 283 U/L (23-300); Non-African American GFR(CKD) >90 (>60 ml/min/1.73 sqM); Potassium 4.3 mmol/L (3.5-5.1); Sodium 137 mmol/L (137-145); Total Bilirubin 0.6 mg/dL (0.2-1.3); Total Protein 6.3 g/dL (6.3-8.2)
[2020-09-26 06:42] LABS: Basophils # (A) 0.1 k/uL (0-0.2); Basophils % (A) 1 %; Eosinophils # (A) 0.1 k/uL (0-0.7); Eosinophils % (A) 2 %; HCT 43.1 % (34.0-46.0); HGB 13.2 gm/dL (11.4-16.0); Lymphocytes # (A) 1.9 k/uL (1.0-4.8); Lymphocytes % (A) 23 %; MCH 33.4 pg (25.0-35.0); MCHC 30.7 g/dL (31.0-37.0); MCV 108.8 fL (80.0-100.0); Macrocytosis Marked; Mean Platelet Volume 7.6; Monocytes # (A) 0.4 k/uL (0-1.0); Monocytes % (A) 5 %; Neutrophils # (A) 5.7 k/uL (1.3-7.7); Neutrophils % (A) 70 %; Platelet Count 206 k/uL (150-450); RBC 3.96 m/uL (3.80-5.40); RDW 15.8 % (11.5-15.5); WBC 8.2 k/uL (3.8-10.6)
[2020-09-26] MEDS: SODIUM CHLORIDE 0.9% 1,000 ML IV SCH ×2 (07:58→19:59)
[2020-09-26] MEDS: diphenhydrAMINE 50 MG/ML 1 ML VIAL IVP PRN (09:24)
--- NOTE | 2020-09-26 11:52 | P.GSCN ---
History of Present Illness Consult date: 09/26/20 Reason for Consult: Pancreatitis History of present illness: This a 55-year-old female well-known to myself. Patient was seen previously for parathyroid adenoma. Patient was admitted to hospital complaints of abdominal pain she is workup found have evidence of pancreatitis. She's had a previous cholecystectomy. 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 Last Myocardial Infarction Date:: unkn History of Any Multi-Drug Resistant Organisms: None Reported Past Surgical History: Section, Cholecystectomy, Hernia Repair, Hysterectomy, Tubal Ligation Additional Past Surgical History / Comment(s): Parathyroidectomy-noncancerous, open heart surgery at age 6 to close a hole in heart, R eye surgery to remove benign tumors, umbilical hernia surgery x 2, colonoscopy with benign polypectomy. Past Anesthesia/Blood Transfusion Reactions: Motion Sickness Additional Past Anesthesia/Blood Transfusion Reaction / Comm: Difficulty waking. Past Psychological History: Anxiety, Depression Additional Psychological History / Comment(s): Pt resides alone. She uses no assistive devices. She drives. Smoking Status: Current every day smoker Past Alcohol Use History: None Reported Additional Past Alcohol Use History / Comment(s): started smoking at age 13, and smokes less than 1ppd, and lately d/t current illness, has been smoking even less. Past Drug Use History: None Reported - Past Family History Father History Unknown: Yes Additional Family Medical History / Comment(s): Pt is adopted. Mother Family Medical History: No Reported History Additional Family Medical History / Comment(s): Biological mother at age 33 y/o of brain aneuyrsm. Pt is adopted. Medications and Allergies Home Medications Medication Instructions Recorded Confirmed Type Levothyroxine Sodium [Synthroid] 88 mcg PO QAM 03/02/17 09/25/20 History Naproxen [Naprosyn] 500 mg PO Q12HR PRN 12/21/17 09/25/20 History Allergies Allergy/AdvReac Type Severity Reaction Status Date / Time bupivacaine [From Marcaine] Allergy Swelling Verified 09/25/20 14:05 methylprednisolone Allergy Swelling Verified 09/25/20 14:05 [From Depo-Medrol] prednisolone Allergy Swelling Verified 09/25/20 14:05 duloxetine [From Cymbalta] AdvReac FATIGUE Verified 09/25/20 14:05 pregabalin [From Lyrica] AdvReac DEPRESSION Verified 09/25/20 14:05 Surgical - Exam Vital Signs Temp Pulse Resp BP Pulse Ox 98.0 F 90 18 144/90 99 09/25/20 11:02 09/25/20 11:02 09/25/20 11:02 09/25/20 11:02 09/25/20 11:02 - General well developed, well nourished, no distress - Eyes PERRL - ENT normal pinna - Neck no masses - Respiratory normal expansion - Cardiovascular Rhythm: regular - Abdomen Mild epigastric tenderness Abdomen: soft Results - Labs 09/26/20 06:13 09/26/20 06:13 Abnormal Lab Results - Last 24 Hours (Table) 09/25/20 09/25/20 09/26/20 Range/Units 11:56 11:56 06:13 MCV 105.3 H 108.8 H (80.0-100.0) fL MCHC 30.7 L (31.0-37.0) g/dL RDW 15.8 H (11.5-15.5) % Macrocytosis Marked A Sodium 136 L (137-145) mmol/L Glucose 124 H (74-99) mg/dL AST 66 H (14-36) U/L ALT 266 H (4-34) U/L Alkaline Phosphatase 174 H (38-126) U/L Amylase 163 H (30-110) U/L Lipase 1002 H (23-300) U/L 09/26/20 Range/Units 06:13 MCV (80.0-100.0) fL MCHC (31.0-37.0) g/dL RDW (11.5-15.5) % Macrocytosis Sodium (137-145) mmol/L Glucose 117 H (74-99) mg/dL AST (14-36) U/L ALT 204 H (4-34) U/L Alkaline Phosphatase 135 H (38-126) U/L Amylase (30-110) U/L Lipase (23-300) U/L Diabetes panel 09/25/20 09/26/20 Range/Units 11:56 06:13 Sodium 136 L 137 (137-145) mmol/L Potassium 4.5 4.3 (3.5-5.1) mmol/L Chloride 105 106 (98-107) mmol/L Carbon Dioxide 26 29 (22-30) mmol/L BUN 8 10 (7-17) mg/dL Creatinine 0.59 0.62 (0.52-1.04) mg/dL Glucose 124 H 117 H (74-99) mg/dL Calcium 9.5 8.4 (8.4-10.2) mg/dL AST 66 H 36 (14-36) U/L ALT 266 H 204 H (4-34) U/L Alkaline Phosphatase 174 H 135 H (38-126) U/L Total Protein 7.1 6.3 (6.3-8.2) g/dL Albumin 4.2 3.7 (3.5-5.0) g/dL Calcium panel 09/25/20 09/26/20 Range/Units 11:56 06:13 Calcium 9.5 8.4 (8.4-10.2) mg/dL Albumin 4.2 3.7 (3.5-5.0) g/dL Pituitary panel 09/25/20 09/26/20 Range/Units 11:56 06:13 Sodium 136 L 137 (137-145) mmol/L Potassium 4.5 4.3 (3.5-5.1) mmol/L Chloride 105 106 (98-107) mmol/L Carbon Dioxide 26 29 (22-30) mmol/L BUN 8 10 (7-17) mg/dL Creatinine 0.59 0.62 (0.52-1.04) mg/dL Glucose 124 H 117 H (74-99) mg/dL Calcium 9.5 8.4 (8.4-10.2) mg/dL Adrenal panel 09/25/20 09/26/20 Range/Units 11:56 06:13 Sodium 136 L 137 (137-145) mmol/L Potassium 4.5 4.3 (3.5-5.1) mmol/L Chloride 105 106 (98-107) mmol/L Carbon Dioxide 26 29 (22-30) mmol/L BUN 8 10 (7-17) mg/dL Creatinine 0.59 0.62 (0.52-1.04) mg/dL Glucose 124 H 117 H (74-99) mg/dL Calcium 9.5 8.4 (8.4-10.2) mg/dL Total Bilirubin 0.6 0.6 (0.2-1.3) mg/dL AST 66 H 36 (14-36) U/L ALT 266 H 204 H (4-34) U/L Alkaline Phosphatase 174 H 135 H (38-126) U/L Total Protein 7.1 6.3 (6.3-8.2) g/dL Albumin 4.2 3.7 (3.5-5.0) g/dL Assessment and Plan Assessment: Pancreatitis. Unsure of etiology. Patient is status post cholecystectomy. Her calcium levels normal. She'll be observed.
--- NOTE | 2020-09-26 12:07 | P.HPIM ---
History of Present Illness H&P Date: 09/26/20 Chief Complaint: Abdominal pain 55-year-old female presented to the hospital through the emergency room with a complaint of moderate to severe abdominal pain. Patient states she's been dealing with this off and on for over a year. States she has a history of hernia, patient also states that she did see a surgeon patient states that she's been having increased pain which has become intolerable underwent laparoscopic cholecystectomy, by Dr. Priyanka Hull. Patient does not use alcohol Review of Systems Constitutional: Reports as per HPI Ears, nose, mouth and throat: Reports as per HPI Cardiovascular: Reports as per HPI Respiratory: Reports as per HPI Gastrointestinal: Reports abdominal pain, Reports nausea, Reports vomiting Genitourinary: Reports as per HPI Menstruation: Reports as per HPI Musculoskeletal: Reports as per HPI Integumentary: Reports as per HPI Neurological: Reports aphasia Psychiatric: Reports anxiety, Reports depression Past Medical History Past Medical History: COPD, Fibromyalgia, GERD/Reflux, Hyperlipidemia, Myocardia l Infarction ([place]), Osteoarthritis (OA), Thyroid Disorder Additional Past Medical History / Comment(s): Pt states she has had a [place] but does not know when or where she was treated, generalized pain and chronic cervical and lumbar pain, bilateral carpal tunnel syndrome, bilateral lower extremity neuropathy, R hand/arm numbness running from thumb up into forearm, 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 Last Myocardial Infarction Date:: unkn History of Any Multi-Drug Resistant Organisms: None Reported Past Surgical History: Section, Cholecystectomy, Hernia Repair, Hysterectomy, Tubal Ligation Additional Past Surgical History / Comment(s): Parathyroidectomy-noncancerous, open heart surgery at age 6 to close a hole in heart, R eye surgery to remove benign tumors, umbilical hernia surgery x 2, colonoscopy with benign polypectomy. Past Anesthesia/Blood Transfusion Reactions: Motion Sickness Additional Past Anesthesia/Blood Transfusion Reaction / Comment(s): Difficulty waking. Past Psychological History: Anxiety, Depression Additional Psychological History / Comment(s): Pt resides alone. She uses no assistive devices. She drives. Smoking Status: Current every day smoker Past Alcohol Use History: None Reported Additional Past Alcohol Use History / Comment(s): started smoking at age 13, and smokes less than 1ppd, and lately d/t current illness, has been smoking even less. Past Drug Use History: None Reported - Past Family History Father History Unknown: Yes Additional Family Medical History / Comment(s): Pt is adopted. Mother Family Medical History: No Reported History Additional Family Medical History / Comment(s): Biological mother at age 33 y/o of brain aneuyrsm. Pt is adopted. Medications and Allergies Home Medications Medication Instructions Recorded Confirmed Type Levothyroxine Sodium [Synthroid] 88 mcg PO QAM 03/02/17 09/25/20 History Naproxen [Naprosyn] 500 mg PO Q12HR PRN 12/21/17 09/25/20 History Allergies Allergy/AdvReac Type Severity Reaction Status Date / Time bupivacaine [From Marcaine] Allergy Swelling Verified 09/25/20 14:05 methylprednisolone Allergy Swelling Verified 09/25/20 14:05 [From Depo-Medrol] prednisolone Allergy Swelling Verified 09/25/20 14:05 duloxetine [From Cymbalta] AdvReac FATIGUE Verified 09/25/20 14:05 pregabalin [From Lyrica] AdvReac DEPRESSION Verified 09/25/20 14:05 Physical Exam Osteopathic Statement: *. No significant issues noted on an osteopathic structural exam other than those noted in the History and Physical/Consult. Vitals: Vital Signs Temp Pulse Pulse Resp BP BP Pulse Ox 09/26/20 08:22 97.4 F L 73 18 141/81 97 09/26/20 08:00 18 09/26/20 07:00 98.0 F 82 18 152/80 93 L 09/26/20 01:22 97.4 F L 81 16 129/79 98 09/25/20 20:09 97.7 F 79 16 165/98 95 09/25/20 18:29 98.0 F 72 18 131/82 95 09/25/20 18:00 18 95 09/25/20 17:00 72 18 131/82 95 09/25/20 16:00 75 18 95 09/25/20 15:00 75 18 138/85 95 09/25/20 14:00 90 18 147/96 97 09/25/20 12:06 18 Intake and Output 09/25/20 09/26/20 09/26/20 22:59 06:59 14:59 Intake Total 600 Balance 600 Intake: Intake, IV Titration 600 Amount Sodium Chloride 0.9% 1, 600 000 ml @ 100 mls/hr IV . Q10H [facility] Rx#:[id number] Other: # Voids 1 2 Weight 65.771 kg General: [Patient awake, alert and oriented times 3. Patient in no acute distress.] HEENT: [PERRL. EOMI. No pharyngeal erythema or exudate.] Neck: [No adenopathy.] Cardiac: [Heart regular in rate and rhythm. No S3. No S4. No clicks, rubs. No murmur.] Lungs: [Clear to auscultation bilaterally.] Abdomen: [No mass. No organomegaly. Bowel sounds presnt and normoactive in all 4 quadrants. scaring resultant from section and laparoscopic cholecystectomy Extremes: [No edema no cyanosis no claudication normal pulses] : Normal female genitalia Musculoskeletal: [No joint erythema, edema or tenderness.] Skin: [No rash.] Neurologic: [No lateralizing deficits. CN II - XII grossly intact.] Lymphatic: [No adenopathy.] Results CBC & Chem 7: 09/26/20 06:13 09/26/20 06:13 Labs: Abnormal Lab Results - Last 24 Hours (Table) 09/25/20 09/25/20 09/26/20 Range/Units 11:56 11:56 06:13 MCV 105.3 H 108.8 H (80.0-100.0) fL MCHC 30.7 L (31.0-37.0) g/dL RDW 15.8 H (11.5-15.5) % Macrocytosis Marked A Sodium 136 L (137-145) mmol/L Glucose 124 H (74-99) mg/dL AST 66 H (14-36) U/L ALT 266 H (4-34) U/L Alkaline Phosphatase 174 H (38-126) U/L Amylase 163 H (30-110) U/L Lipase 1002 H (23-300) U/L 09/26/20 Range/Units 06:13 MCV (80.0-100.0) fL MCHC (31.0-37.0) g/dL RDW (11.5-15.5) % Macrocytosis Sodium (137-145) mmol/L Glucose 117 H (74-99) mg/dL AST (14-36) U/L ALT 204 H (4-34) U/L Alkaline Phosphatase 135 H (38-126) U/L Amylase (30-110) U/L Lipase (23-300) U/L Thrombosis Risk Factor Assmnt - Choose All That Apply Any of the Below Risk Factors Present?: Yes Each Factor Represents 1 point: Age 41-60 years, Obesity (BMI >25) Other Risk Factors: No Thrombosis Risk Factor Assessment Total Risk Factor Score: 2 Thrombosis Risk Factor Assessment Level: Low Risk Assessment and Plan (1) Nausea & vomiting Current Visit: Yes Status: Acute Code(s): R11.2 - NAUSEA WITH VOMITING, UNSPECIFIED SNOMED Code(s): 57630572 (2) Acute pancreatitis Current Visit: Yes Status: Acute Code(s): K85.90 - ACUTE PANCREATITIS WITHOUT NECROSIS OR INFECTION, UNSP SNOMED Code(s): 469216097 (3) COPD exacerbation Current Visit: No Status: Acute Code(s): J44.1 - CHRONIC OBSTRUCTIVE PULMONARY DISEASE W (ACUTE) EXACERBATION SNOMED Code(s): 131197699 (4) RUQ pain Current Visit: No Status: Acute Code(s): R10.11 - RIGHT UPPER QUADRANT PAIN SNOMED Code(s): 205823295 Plan: Resume home meds Patient placed at bowel rest Consultation Gen. surgery Consultation with gastroenterology Patient became short of breath almost immediately following administration of Dilaudid Dilaudid stopped Time with Patient: Greater than 30
[2020-09-26] MEDS: LACTATED RINGERS 1,000 ML IV SCH ×2 (14:32→18:19)
[2020-09-26] MEDS: HYDROcodone/APAP 5-325MG 1 EACH TAB PO PRN (16:00)
[2020-09-27] MEDS: LACTATED RINGERS 1,000 ML IV SCH ×3 (02:36→16:30)
[2020-09-27] MEDS: SODIUM CHLORIDE 0.9% 1,000 ML IV SCH ×2 (05:23→16:31)
[2020-09-27] MEDS: LEVOTHYROXINE 88 MCG TAB PO SCH (05:25)
--- NOTE | 2020-09-27 08:32 | P.CONS ---
History of Present Illness - Reason for Consult Consult date: 09/26/20 pancreatitis Requesting physician: Keagan Valdes Jr - Chief Complaint abdominal pain - History of Present Illness 55-year-old female with medical history significant for hypothyroidism, tobacco abuse who presented to the hospital due to complaints of abdominal pain. The patient reports severe epigastric abdominal pain. She reports chronic issues with constipation and vague abdominal pain however developed worsening epigastric abdominal pain and presented to the hospital for further evaluation. She does report nausea but no episodes of vomiting. She reports use of [id number] laxatives for treatment of her constipation. She has had a colonoscopy in the past was is unsure when this was performed. On presentation to the hospital she was found to have WBC 8.2, hemoglobin 13.2, platelet count 206,000, total bilirubin 0.6, alkaline phosphatase 135, AST 36 and ALT 200 for her amylase was found to be 163 and her lipase 1002. She denies any history of alcohol use or abuse. Computed tomography scan showed possible pancreatitis with other findings noted as well. Ultrasound of the abdomen is significant only for steatosis of the liver. Review of Systems REVIEW OF SYSTEMS: CONSTITUTIONAL: Denies any fevers, chills, weight change or fatigue. CARDIOVASCULAR: Denies any chest pain, palpitations high or low blood pressures RESPIRATORY: Denies any shortness of breath, hemoptysis or cough. GENITOURINARY: No dysuria or hematuria. MUSCULOSKELETAL: No weakness reported. SKIN: Denies any new rashes or lesions, jaundice or pallor. PSYCHIATRIC: Denies any depression or anxiety. NEUROLOGY: Denies headache, denies any new focal deficits. EARS/NOSE/THROAT: No recent hearing change, congestion, nasal discharge or sore throat. EYES: No pain in eyes, discharge or change in vision. GASTROINTESTINAL: As per HPI. 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 Last Myocardial Infarction Date:: unkn History of Any Multi-Drug Resistant Organisms: None Reported Past Surgical History: Section, Cholecystectomy, Hernia Repair, Hys terectomy, Tubal Ligation Additional Past Surgical History / Comment(s): Parathyroidectomy-noncancerous, open heart surgery at age 6 to close a hole in heart, R eye surgery to remove benign tumors, umbilical hernia surgery x 2, colonoscopy with benign polypectomy. Past Anesthesia/Blood Transfusion Reactions: Motion Sickness Additional Past Anesthesia/Blood Transfusion Reaction / Comm: Difficulty waking. Past Psychological History: Anxiety, Depression Additional Psychological History / Comment(s): Pt resides alone. She uses no assistive devices. She drives. Smoking Status: Current every day smoker Past Alcohol Use History: None Reported Additional Past Alcohol Use History / Comment(s): started smoking at age 13, and smokes less than 1ppd, and lately d/t current illness, has been smoking even less. Past Drug Use History: None Reported - Past Family History Father History Unknown: Yes Additional Family Medical History / Comment(s): Pt is adopted. Mother Family Medical History: No Reported History Additional Family Medical History / Comment(s): Biological mother at age 33 y/o of brain aneuyrsm. Pt is adopted. Medications and Allergies Home Medications Medication Instructions Recorded Confirmed Type Levothyroxine Sodium [Synthroid] 88 mcg PO QAM 03/02/17 09/25/20 History Naproxen [Naprosyn] 500 mg PO Q12HR PRN 12/21/17 09/25/20 History Allergies Allergy/AdvReac Type Severity Reaction Status Date / Time bupivacaine [From Marcaine] Allergy Swelling Verified 09/25/20 14:05 methylprednisolone Allergy Swelling Verified 09/25/20 14:05 [From Depo-Medrol] prednisolone Allergy Swelling Verified 09/25/20 14:05 duloxetine [From Cymbalta] AdvReac FATIGUE Verified 09/25/20 14:05 pregabalin [From Lyrica] AdvReac DEPRESSION Verified 09/25/20 14:05 Physical Exam Vitals: Vital Signs Temp Pulse Pulse Resp BP BP Pulse Ox 09/26/20 08:22 97.4 F L 73 18 141/81 97 09/26/20 08:00 18 09/26/20 07:00 98.0 F 82 18 152/80 93 L 09/26/20 01:22 97.4 F L 81 16 129/79 98 09/25/20 20:09 97.7 F 79 16 165/98 95 09/25/20 18:29 98.0 F 72 18 131/82 95 09/25/20 18:00 18 95 09/25/20 17:00 72 18 131/82 95 09/25/20 16:00 75 18 95 09/25/20 15:00 75 18 138/85 95 09/25/20 14:00 90 18 147/96 97 Intake and Output 09/25/20 09/26/20 09/26/20 22:59 06:59 14:59 Intake Total 600 Balance 600 Intake: Intake, IV Titration 600 Amount Sodium Chloride 0.9% 1, 600 000 ml @ 100 mls/hr IV . Q10H [facility] Rx#:[id number] Other: # Voids 1 2 Weight 65.771 kg On physical examination, patient appears comfortable in no apparent distress. HEAD: Normocephalic, atraumatic. EYES: No scleral icterus. No conjunctival injection. MOUTH: No lesions, tongue midline. NECK: Trachea midline, no gross abnormalities. CHEST: Clear to auscultation with no wheezing or rhonchi appreciated. HEART: Regular rate and rhythm. ABDOMEN: Soft, obese, mildly tender to palpation. Bowel sounds are positive. No organomegaly. No guarding or rigidity. EXTREMITIES: No pedal edema. SKIN: No rashes, no jaundice. NEUROLOGIC: Alert and oriented x3. No focal deficits. Results CBC & Chem 7: 09/26/20 06:13 09/26/20 06:13 Labs: Abnormal Lab Results - Last 24 Hours (Table) 09/26/20 09/26/20 Range/Units 06:13 06:13 MCV 108.8 H (80.0-100.0) fL MCHC 30.7 L (31.0-37.0) g/dL RDW 15.8 H (11.5-15.5) % Macrocytosis Marked A Glucose 117 H (74-99) mg/dL ALT 204 H (4-34) U/L Alkaline Phosphatase 135 H (38-126) U/L US - abdomen: report reviewed (hepatic steatosis seen on ultrasound of the abdomen) Assessment and Plan (1) Acute pancreatitis Narrative/Plan: 5-year-old female presenting to the hospital with worsening abdominal pain. Found to have elevation in lipase of 1002 and amylase of 163. Liver enzymes normal she is status post cholecystectomy. Ultrasound of the abdomen showing hepatic steatosis. Denies any alcohol abuse. She does use tobacco and has mostly resolved she can remember. Nausea with no vomiting. Triglyceride level ordered and pending. Current Visit: Yes Status: Acute Code(s): K85.90 - ACUTE PANCREATITIS WITH OUT NECROSIS OR INFECTION, UNSP SNOMED Code(s): 504897319 (2) Abdominal pain Current Visit: Yes Status: Acute Code(s): R10.9 - UNSPECIFIED ABDOMINAL PAIN SNOMED Code(s): 07616683 Plan: supportive care Clear liquid diet Ultrasound of the abdomen reviewed Tobacco cessation recommended Lactated Ringer's 150 mL/h Would recommend repeat imaging in 6-8 weeks with MRI or endoscopic ultrasound Thank you for allowing us to participate in the care of the patient we will continue to follow
[2020-09-27] MEDS: HYDROcodone/APAP 5-325MG 1 EACH TAB PO PRN ×2 (09:16→16:29)
--- NOTE | 2020-09-27 10:20 | P.PN ---
Progress Note - Text Progress Note Date: 09/27/20 The patient feels better today. She states her abdominal pain is improved. On exam vital signs are stable. Abdomen soft. There is mild epigastric pain. Resolving peritonitis. Patient will most likely be discharged home tomorrow.
[2020-09-27] MEDS: diphenhydrAMINE 50 MG/ML 1 ML VIAL IVP PRN (13:01)
--- NOTE | 2020-09-27 20:08 | P.PN ---
Subjective Progress Note Date: 09/27/20 Principal diagnosis: acute pancreatitis the patient is seen lying in bed reporting abdominal pain is improved today. No nausea vomiting. She tolerated a liquid diet and is asking for her diet to be advanced. Objective - Vital Signs Vital signs: Vital Signs Temp 98.3 F 09/27/20 07:00 Pulse 71 09/27/20 07:00 Resp 16 09/27/20 08:29 BP 145/90 09/27/20 07:00 Pulse Ox 98 09/27/20 07:00 Intake & Output 09/26/20 09/27/20 09/27/20 18:59 06:59 18:59 Intake Total 950 200 Balance 950 200 Intake: Intake, IV Titration 600 Amount Sodium Chloride 0.9% 1, 600 000 ml @ 100 mls/hr IV . Q10H [facility]ACED BY [facility] Rx#:[id number] Oral 350 200 Other: Voiding Method Toilet Toilet # Voids 2 # Bowel Movements 0 - Exam On physical examination, patient appears comfortable in no apparent distress. HEAD: Normocephalic, atraumatic. EYES: No scleral icterus. No conjunctival injection. MOUTH: No lesions, tongue midline. NECK: Trachea midline, no gross abnormalities. ABDOMEN: Soft, obese, less tender to palpation. Bowel sounds are positive. No organomegaly. No guarding or rigidity. EXTREMITIES: No pedal edema. SKIN: No rashes, no jaundice. NEUROLOGIC: Alert and oriented x3. No focal deficits. - Labs CBC & Chem 7: 09/26/20 06:13 09/26/20 06:13 Labs: Abnormal Lab Results - Last 24 Hours (Table) 09/27/20 Range/Units 06:27 Triglycerides 237.0 H (0.0-149.0) mg/dL Assessment and Plan (1) Acute pancreatitis Narrative/Plan: 55-year-old female presenting to the hospital with worsening abdominal pain. Found to have elevation in lipase of 1002 and amylase of 163. Liver enzymes normal she is status post cholecystectomy. Ultrasound of the abdomen showing hepatic steatosis. Denies any alcohol abuse. She does use tobacco and has mostly resolved she can remember. Symptomatically improving. Current Visit: Yes Status: Acute Code(s): K85.90 - ACUTE PANCREATITIS WITHOUT NECROSIS OR INFECTION, UNSP SNOMED Code(s): 005266496 (2) Abdominal pain Current Visit: Yes Status: Acute Code(s): R10.9 - UNSPECIFIED ABDOMINAL PAIN SNOMED Code(s): 04703802 Plan: supportive care diet advance to low-fat, patient instructed to eat as tolerated and back off for abdominal pain recurs Ultrasound of the abdomen reviewed Tobacco cessation recommended Would recommend repeat imaging in 6-8 weeks with MRI or endoscopic ultrasound Thank you for allowing us to participate in the care of the patient we will continue to follow
[2020-09-27] MEDS ORDERED: polyethylene glycoL 3350 17 GM POWD.PACK PO SCH (21:00)
[2020-09-28] MEDS: HYDROcodone/APAP 5-325MG 1 EACH TAB PO PRN ×2 (01:04→07:38)
[2020-09-28] MEDS: LEVOTHYROXINE 88 MCG TAB PO SCH (05:26)
[2020-09-28 08:55] VITALS: BP 157/89
[2020-09-28 09:12] LABS: ALT 123 U/L (4-34); AST 27 U/L (14-36); African American GFR (CKD) >90 (>60 ml/min/1.73 sqM); Albumin 3.8 g/dL (3.5-5.0); Albumin/Globulin Ratio 1.5; Alkaline Phosphatase 127 U/L (38-126); Anion Gap 5 mmol/L; Blood Urea Nitrogen 8 mg/dL (7-17); Calcium 9.4 mg/dL (8.4-10.2); Carbon Dioxide 31 mmol/L (22-30); Chloride 101 mmol/L (98-107); Globulin 2.6 g/dL; Glucose 219 mg/dL (74-99); Lipase 255 U/L (23-300); Non-African American GFR(CKD) >90 (>60 ml/min/1.73 sqM); Potassium 4.2 mmol/L (3.5-5.1); Sodium 137 mmol/L (137-145); Total Bilirubin 0.8 mg/dL (0.2-1.3); Total Protein 6.4 g/dL (6.3-8.2)
--- NOTE | 2020-09-28 12:08 | P.DS ---
Providers Date of admission: 09/25/20 14:11 Expected date of discharge: 09/28/20 Attending physician: Keagan Valdes Consults: 09/25/20 14:43 Consult Physician Routine Consulting Provider: Ronny Kruse Consult Reason/Comments: pancreatitis Do you want consulting provider notified?: Yes Consult Physician Urgent Consulting Provider: Dong Hawkins Consult Reason/Comments: pancreatitis Do you want consulting provider notified?: Yes Primary care physician: Sameer Bliss Hospital Course: Final Diagnoses: Acute pancreatitis, etiology unclear History of cholecystectomy Nausea, vomiting with Abdominal pain suspect related to the above, improved. Hepatic steatosis reported per ultrasound and CT Hepatosplenomegaly Bilateral adrenal gland low attenuation lesions, likely adenomas reported per CT Possible diverticulosis Acute COPD exacerbation, suspect related to Dilaudid, significantly improved with the discontinuation of Dilaudid. Ongoing nicotine dependence Hospital course: This is a 55-year-old female presented to the hospital through the emergency room with a complaint of moderate to severe abdominal pain. Patient states she's been dealing with this off and on for over a year. States she has a history of hernia, patient also states that she did see a surgeon patient states that she's been having increased pain which has become intolerable underwent laparoscopic cholecystectomy, by Dr. Priyanka Hull. Patient does not use alcohol. Tolerating low fat diet with no further nausea vomiting. Abdominal discomfort improving. Evaluated by both GI and surgery. GI recommending repeat outpatient imaging with MRI or endoscopic ultrasound in 6-8 weeks-to be further arranged per GI. Triglycerides elevated to be repeated outpatient as well. Significant clinical improvement. Patient will be discharged home today in a stable condition with guarded prognosis, pending final DC recommendations and clearance from both GI and surgery. The impression and plan of care has been dictated as directed. DrJhonathan: I performed a history and examination of this patient, discussed the same with the dictator. I agree with the dictator's note ,documented as a scribe. Any additional findings or plans will be noted. Patient Condition at Discharge: Stable Plan - Discharge Summary New Discharge Prescriptions: New polyethylene glycoL 3350 [Miralax] 17 gm PO HS powd.pack Continue Levothyroxine Sodium [Synthroid] 88 mcg PO QAM Naproxen [Naprosyn] 500 mg PO Q12HR PRN PRN Reason: Pain Discharge Medication List Levothyroxine Sodium [Synthroid] 88 mcg PO QAM 03/02/17 [History] Naproxen [Naprosyn] 500 mg PO Q12HR PRN 12/21/17 [History] polyethylene glycoL 3350 [Miralax] 17 gm PO HS powd.pack 09/28/20 [Rx] Follow up Appointment(s)/Referral(s): Sameer Bliss MD [Primary Care Provider] - 3 Days Dong Hawkins MD [STAFF PHYSICIAN] - 1 Week Ronny Kruse MD [STAFF PHYSICIAN] - 1 Week Activity/Diet/Wound Care/Special Instructions: Repeat OP imaging with MRI or endoscopic US to be arranged per GI, in 6-8 weeks Diet: Low-fat Repeat triglycerides outpatient No smoking
--- NOTE | 2020-09-28 13:18 | P.PN ---
Subjective Progress Note Date: 09/28/20 CHIEF COMPLAINT: Abdominal pain HISTORY OF PRESENT ILLNESS: Patient is being followed for her pancreatitis. [place] is improving. She is tolerating diet. Abdominal pain has improved since admission. She denies any nausea or vomiting. She is afebrile. Lipase 255 she did have a bowel movement. PHYSICAL EXAM: VITAL SIGNS: Reviewed. GENERAL: Well-developed in no acute distress. HEENT: No sclera icterus. Extraocular movements grossly intact. Moist buccal mucosa. Head is atraumatic, normocephalic. ABDOMEN: Soft. Nondistended. Mild epigastric tenderness. Evidence of an incisional hernia NEUROLOGIC: Alert and oriented. Cranial nerves II through XII grossly intact. ASSESSMENT: 1. Acute pancreatitis resolving 2. Incisional hernia PLAN: -Patient follow-up with Dr. Kruse in 1 week -Patient can be discharged from surgical standpoint Physician Securities Dealer note has been reviewed by physician. Signing provider agrees with the documented findings, assessment, and plan of care. Objective - Vital Signs Vital signs: Vital Signs Temp 98.7 F 09/28/20 08:55 Pulse 82 09/28/20 08:55 Resp 16 09/28/20 07:39 BP 157/89 09/28/20 08:55 Pulse Ox 97 09/28/20 08:55 Intake & Output 09/27/20 09/28/20 09/28/20 18:59 06:59 18:59 Intake Total 1530 200 Balance 1530 200 Intake: Intake, IV Titration 900 Amount Lactated Ringers 1,000 ml 900 @ 150 mls/hr IV .Q6H40M [facility] Rx#:[id number] Oral 630 200 Other: Voiding Method Toilet Toilet Toilet # Voids 3 1 - Labs CBC & Chem 7: 09/26/20 06:13 09/28/20 08:45 Labs: Abnormal Lab Results - Last 24 Hours (Table) 09/28/20 Range/Units 08:45 Carbon Dioxide 31 H (22-30) mmol/L Glucose 219 H (74-99) mg/dL ALT 123 H (4-34) U/L Alkaline Phosphatase 127 H (38-126) U/L
[2020-09-28 13:21] VITALS: PULSE 78; RESP 22; TEMP 97.9
--- NOTE | 2020-09-28 13:55 | P.PN ---
Subjective Progress Note Date: 09/28/20 Principal diagnosis: acute pancreatitis The patient was seen and examined this morning sitting up in bed. She states her abdominal pain has improved. She denies any nausea or vomiting no diarrhea. She is tolerating her diet. Objective - Vital Signs Vital signs: Vital Signs Temp 97.9 F 09/28/20 12:50 Pulse 78 09/28/20 12:50 Resp 22 09/28/20 12:50 BP 157/89 09/28/20 08:55 Pulse Ox 95 09/28/20 12:50 Intake & Output 09/27/20 09/28/20 09/28/20 18:59 06:59 18:59 Intake Total 1530 200 Balance 1530 200 Intake: Intake, IV Titration 900 Amount Lactated Ringers 1,000 ml 900 @ 150 mls/hr IV .Q6H40M [facility] Rx#:[id number] Oral 630 200 Other: Voiding Method Toilet Toilet Toilet # Voids 3 1 - Exam General appearance: The patient is alert, oriented, in no acute distress. HET: Head is normocephalic and atraumatic. Conjunctiva pink. Sclera anicteric. Neck: Supple without lymphadenopathy. Abdomen: Soft, upper quadrant tenderness with palpation, nondistended with b owel sounds. No guarding or rigidity. Extremities: Normal skin color and turgor. No pedal edema Neurological: No focal deficits. Alert and oriented 3. - Labs CBC & Chem 7: 09/26/20 06:13 09/28/20 08:45 Labs: Abnormal Lab Results - Last 24 Hours (Table) 09/28/20 Range/Units 08:45 Carbon Dioxide 31 H (22-30) mmol/L Glucose 219 H (74-99) mg/dL ALT 123 H (4-34) U/L Alkaline Phosphatase 127 H (38-126) U/L Assessment and Plan (1) Abdominal pain Status: Acute Code(s): R10.9 - UNSPECIFIED ABDOMINAL PAIN SNOMED Code(s): 52551109 (2) Acute pancreatitis Status: Acute Code(s): K85.90 - ACUTE PANCREATITIS WITHOUT NECROSIS OR INFECTION, UNSP SNOMED Code(s): 715205799 Plan: Supportive care Pain meds as needed Low-fat diet She may be discharged home from the gastroenterology standpoint Follow-up with gastroenterology in 1-2 weeks, outpatient MRI for EUS recommended 6-8 weeks. The impression and plan of care has been dictated as directed. I performed a history and examination of this patient, discussed the same with the dictator. I agree with the dictator's note ,documented as a scribe. Any additional findings or plans will be noted.
== END 2020-09-28 13:34 | disposition home or self-care (01) | DRG 439 ==
LOC: EC 10:41 → 4SSUR 14:11 → 6PED 09-28 08:29
PROVIDERS: ADMIT Family Medicine; ATTEND Family Medicine
DX: K85.90 Acute pancreatitis without necrosis or infection, unspecified (principal); J44.1 Chronic obstructive pulmonary disease with (acute) exacerbation; K43.2 Incisional hernia without obstruction or gangrene; K59.00 Constipation, unspecified; E89.2 Postprocedural hypoparathyroidism; E03.9 Hypothyroidism, unspecified; E78.1 Pure hyperglyceridemia; E78.5 Hyperlipidemia, unspecified; F17.210 Nicotine dependence, cigarettes, uncomplicated; F32.9 Major depressive disorder, single episode, unspecified; F41.9 Anxiety disorder, unspecified; I25.2 Old myocardial infarction; K76.0 Fatty (change of) liver, not elsewhere classified; M79.7 Fibromyalgia; Z79.890 Hormone replacement therapy; Z90.49 Acquired absence of other specified parts of digestive tract; Z90.710 Acquired absence of both cervix and uterus; Z98.51 Tubal ligation status; Z86.010 Personal history of colon polyps; Z60.2 Problems related to living alone; D35.00 Benign neoplasm of unspecified adrenal gland; K57.90 Diverticulosis of intestine, part unspecified, without perforation or abscess without bleeding; Z88.4 Allergy status to anesthetic agent; Z88.8 Allergy status to other drugs, medicaments and biological substances; T40.2X5A Adverse effect of other opioids, initial encounter; M19.90 Unspecified osteoarthritis, unspecified site; G89.29 Other chronic pain; M54.2 Cervicalgia; M54.5 Low back pain
CPT/HCPCS: 36415; 74177; 76705; 80053; 81003; 82150; 83605; 83690; 84478; 85025; 85610; 85730; 96361; 96374; 96375; 99285

== ENCOUNTER → 2020-10-06 | Outpatient (CLI) | payer OTHER ==
[2020-10-06 15:34] LABS: Basophils # (A) 0.1 k/uL (0-0.2); Basophils % (A) 1 %; Eosinophils # (A) 0.2 k/uL (0-0.7); Eosinophils % (A) 2 %; HCT 47.3 % (34.0-46.0); HGB 15.4 gm/dL (11.4-16.0); Lymphocytes # (A) 1.9 k/uL (1.0-4.8); Lymphocytes % (A) 28 %; MCH 33.5 pg (25.0-35.0); MCHC 32.5 g/dL (31.0-37.0); Macrocytosis Slight; Mean Platelet Volume 7.7; Monocytes # (A) 0.3 k/uL (0-1.0); Monocytes % (A) 4 %; Neutrophils # (A) 4.4 k/uL (1.3-7.7); Neutrophils % (A) 64 %; Platelet Count 303 k/uL (150-450); RBC 4.59 m/uL (3.80-5.40); RDW 15.7 % (11.5-15.5); WBC 6.9 k/uL (3.8-10.6)
[2020-10-06 15:44] LABS: MCV 103.1 fL (80.0-100.0)
[2020-10-07 01:14] LABS: African American GFR (CKD) 96.2 (60.0-200.0); Albumin 4.7 g/dL (3.80-4.90); Albumin/Globulin Ratio 2.04 (1.60-3.17); Anion Gap 8.8 mmol/L (4.00-12.00); Calcium 10.1 mg/dL (8.7-10.3); Carbon Dioxide 27.2 mmol/L (21.6-31.8); Globulin 2.3 g/dL (1.6-3.3); Total Bilirubin 0.5 mg/dL (0.2-1.2)
[2020-10-07 11:07] LABS: IgG Subclass 3 25.1 mg/dL (11.0-85.0); IgG Subclass 4 65.4 mg/dL (3.0-175.0)
== END | disposition home or self-care (01) ==
LOC: LABWHC1 11:25
PROVIDERS: ATTEND Nurse Practitioner
DX: K85.90 Acute pancreatitis without necrosis or infection, unspecified (principal)
CPT/HCPCS: 36415; 80053; 82150; 82787; 83690; 84478; 85025; 86038

== ENCOUNTER 2020-10-23 08:07 | Day surgery (SDC) | payer OTHER ==
[2020-10-20 12:16] VITALS: BMI 29.9
[~2020-10-23 08:07] MED LIST changes: -HEPARIN SODIUM,PORCINE 5,000 UNIT/ML 1 ML VIAL SQ ONE; +LACTATED RINGERS 1,000 ML IV SCH; +LIDOCAINE 1% (10MG/ML) FOR IV START INTRADERMA PRN; -MIDAZOLAM 2 MG/2 ML VIAL IV PRN; -MORPHINE SULFATE 4 MG/ML SYRINGE IV PRN; -ONDANSETRON 4 MG/2 ML VIAL IVP ONE; -Pre Op ABX Message 1 EACH MISC MISCELLANE ONE; -SCOPOLAMINE 1.5MG/72HR PATCH TRANSDERM ONE
[2020-10-23 08:33] VITALS: TEMP 97.8
[2020-10-23] MEDS ORDERED: LACTATED RINGERS 1,000 ML IV ONE (08:33)
[2020-10-23] MEDS ORDERED: PROPOFOL 10 MG/ML 20 ML VIAL IV ONE (09:00)
--- NOTE | 2020-10-23 09:26 | P.GSHP ---
History of Present Illness H&P Date: 10/23/20 Chief Complaint: Screening colonoscopy This a 55-year-old female who presents today for screening colonoscopy. Patient denies a significant GI complaints. 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 CHANGE IN BOWEL HABITS. RECENT INPT FOR ACUTE PANCREATITIS 09/25/20 Last Myocardial Infarction Date:: unkn History of Any Multi-Drug Resistant Organisms: None Reported Past Surgical History: Section, Cholecystectomy, Hernia Repair, Hysterectomy, Tubal Ligation Additional Past Surgical History / Comment(s): Parathyroidectomy-noncancerous, open heart surgery at age 6 to close a hole in heart, R eye surgery to remove benign tumors, umbilical hernia surgery x 2, colonoscopy with benign polypectomy. Past Anesthesia/Blood Transfusion Reactions: Motion Sickness Additional Past Anesthesia/Blood Transfusion Reaction / Comment(s): Difficulty waking. Smoking Status: Current every day smoker - Past Family History Father History Unknown: Yes Additional Family Medical History / Comment(s): Pt is adopted. Mother Family Medical History: No Reported History Additional Family Medical History / Comment(s): Biological mother at age 33 y/o of brain aneuyrsm. Pt is adopted. Medications and Allergies Home Medications Medication Instructions Recorded Confirmed Type Levothyroxine Sodium [Synthroid] 88 mcg PO QAM 03/02/17 10/20/20 History Naproxen [Naprosyn] 500 mg PO Q12HR PRN 12/21/17 10/20/20 History polyethylene glycoL 3350 [Miralax] 17 gm PO HS powd.pack 09/28/20 10/20/20 Rx Allergies Allergy/AdvReac Type Severity Reaction Status Date / Time bupivacaine [From Marcaine] Allergy Swelling Verified 10/20/20 12:09 methylprednisolone Allergy Swelling Verified 10/20/20 12:09 [From Depo-Medrol] prednisolone Allergy Swelling Verified 10/20/20 12:09 duloxetine [From Cymbalta] AdvReac FATIGUE Verified 10/20/20 12:09 pregabalin [From Lyrica] AdvReac DEPRESSION Verified 10/20/20 12:09 Surgical - Exam Vital Signs Temp Pulse Resp BP Pulse Ox 97.8 F 58 L 18 135/57 98 10/23/20 08:32 10/23/20 08:32 10/23/20 08:32 10/23/20 08:32 10/23/20 08:32 - General well developed, well nourished, no distress - Eyes PERRL - ENT normal pinna - Neck no masses - Respiratory normal expansion - Cardiovascular Rhythm: regular - Abdomen Abdomen: soft, non tender Assessment and Plan Assessment: We'll perform screening colonoscopy
--- NOTE | 2020-10-23 09:28 | P.OP ---
Date of Procedure: 10/23/20 Preoperative Diagnosis: Screening colonoscopy Postoperative Diagnosis: Diverticulosis Procedure(s) Performed: Colonoscopy Anesthesia: MAC Surgeon: Ronny Kruse Pathology: none sent Condition: stable Disposition: PACU Description of Procedure: The patient's placed on the endoscopy table lateral position. She received IV sedation. Digital rectal exam was performed which revealed no abnormalities. The flexible colonoscope was then placed patient anus and passed throughout the entire colon. The ileocecal valve was visualized. The cecum, ascending and transverse colon appeared normal. In the descending; there is moderate diverticular changes. Scope was then brought back the rectum and this appeared normal. Scope withdrawn for patient.
[2020-10-23 09:48] VITALS: BP 138/75; PULSE 79; RESP 18
== END 2020-10-23 10:13 | disposition home or self-care (01) ==
LOC: ORWHC2ENDO 08:07
PROVIDERS: ATTEND Surgery
DX: Z12.11 Encounter for screening for malignant neoplasm of colon (principal); K57.30 Diverticulosis of large intestine without perforation or abscess without bleeding; I25.2 Old myocardial infarction; J44.9 Chronic obstructive pulmonary disease, unspecified; K21.9 Gastro-esophageal reflux disease without esophagitis; E78.5 Hyperlipidemia, unspecified; M19.90 Unspecified osteoarthritis, unspecified site; E07.9 Disorder of thyroid, unspecified; M79.7 Fibromyalgia; G89.29 Other chronic pain; M54.5 Low back pain; M54.2 Cervicalgia; G62.9 Polyneuropathy, unspecified; F17.210 Nicotine dependence, cigarettes, uncomplicated; Z98.891 History of uterine scar from previous surgery; Z90.49 Acquired absence of other specified parts of digestive tract; Z90.710 Acquired absence of both cervix and uterus; Z98.51 Tubal ligation status; Z98.890 Other specified postprocedural states; Z82.49 Family history of ischemic heart disease and other diseases of the circulatory system; Z79.890 Hormone replacement therapy; Z79.1 Long term (current) use of non-steroidal anti-inflammatories (NSAID); Z79.899 Other long term (current) drug therapy; Z88.8 Allergy status to other drugs, medicaments and biological substances
CPT/HCPCS: J2704; G0121

== ENCOUNTER 2020-10-28 05:56 | Observation (INO) | payer OTHER ==
[2020-10-26 14:53] VITALS: BMI 29.9
[~2020-10-28 05:56] MED LIST changes: +ACETAMINOPHEN TAB 500 MG TAB PO PRN; +HYDROmorphone 0.5 MG/0.5 ML SYRINGE IVP PRN; -LACTATED RINGERS 1,000 ML IV SCH; -LIDOCAINE 1% (10MG/ML) FOR IV START INTRADERMA PRN; +ONDANSETRON 4 MG/2 ML VIAL IVP ONE
[2020-10-28] MEDS ORDERED: HEPARIN SODIUM,PORCINE 5,000 UNIT/ML 1 ML VIAL SQ PRN (06:00)
[2020-10-28] MEDS ORDERED: LIDOCAINE 1% (10MG/ML) FOR IV START INTRADERMA ONE (06:30)
[2020-10-28] MEDS: LACTATED RINGERS 1,000 ML IV SCH ×3 (06:41→14:11)
[2020-10-28 07:27] LABS: Bilirubin, Delta 0.4 mg/dL (0.0-0.2); Bilirubin,Unconjugated 0.5 mg/dL (0.0-1.1); Total Bilirubin 0.9 mg/dL (0.2-1.3); Total Protein 6.9 g/dL (6.3-8.2)
[2020-10-28] MEDS ORDERED: GLYCOPYRROLATE 0.2 MG/ML 2 ML VIAL ONE (07:45)
[2020-10-28] MEDS ORDERED: KETOROLAC 15 MG/ML 1 ML VIAL ONE (07:45)
[2020-10-28] MEDS ORDERED: SUCCINYLCHOLINE CHLORIDE 100 MG/5 ML SYR IV ONE (07:45)
[2020-10-28] MEDS ORDERED: NEOSTIGMINE 1 MG/ML 10 ML VIAL ONE (07:45)
[2020-10-28] MEDS ORDERED: PROPOFOL 10 MG/ML 20 ML VIAL IV ONE (07:45)
[2020-10-28] MEDS ORDERED: ROCURONIUM 10 MG/ML (10 ML VIAL) IV ONE (07:45)
[2020-10-28] MEDS ORDERED: MIDAZOLAM 2 MG/2 ML VIAL ONE (07:45)
[2020-10-28] MEDS ORDERED: LIDOCAINE 1% INJ 10MG/ML (20 ML MDV) ONE (07:45)
[2020-10-28] MEDS ORDERED: fentaNYL (PF) 50 MCG/ML 2 ML AMP ONE (07:45)
--- NOTE | 2020-10-28 07:59 | P.GSHP ---
History of Present Illness H&P Date: 10/28/20 Chief Complaint: Incisional hernia This a 55-year-old female who presents today for laparoscopic robotic system repair of incisional hernia. Patient developed a recurrence of the hernia midline epigastric area. 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 pancreatitis Sep 2020 Last Myocardial Infarction Date:: unkn History of Any Multi-Drug Resistant Organisms: None Reported Past Surgical History: Section, Cholecystectomy, Hernia Repair, Hysterectomy, Tubal Ligation Additional Past Surgical History / Comment(s): Parathyroidectomy, open heart surgery at age 6 to close a hole in heart, R eye surgery to remove benign tumors, umbilical hernia surgery x 2, colonoscopy Past Anesthesia/Blood Transfusion Reactions: Motion Sickness Additional Past Anesthesia/Blood Transfusion Reaction / Comment(s): Difficulty waking and "vitals dropped" with a previous surgery. Smoking Status: Current every day smoker - Past Family History Father History Unknown: Yes Additional Family Medical History / Comment(s): Pt is adopted. Mother Family Medical History: No Reported History Additional Family Medical History / Comment(s): Biological mother at age 33 y/o of brain aneuyrsm. Pt is adopted. Medications and Allergies Home Medications Medication Instructions Recorded Confirmed Type Levothyroxine Sodium [Synthroid] 88 mcg PO QAM 03/02/17 10/26/20 History Naproxen [Naprosyn] 500 mg PO Q12HR PRN 12/21/17 10/26/20 History Docusate [Colace] 100 mg PO DAILY 10/26/20 10/26/20 History traMADol HCL [Ultram] 50 mg PO Q4HR PRN 10/26/20 10/26/20 History Allergies Allergy/AdvReac Type Severity Reaction Status Date / Time bupivacaine [From Marcaine] Allergy Swelling Verified 10/28/20 06:24 methylprednisolone Allergy Swelling Verified 10/28/20 06:24 [From Depo-Medrol] prednisolone Allergy Swelling Verified 10/28/20 06:24 duloxetine [From Cymbalta] AdvReac FATIGUE Verified 10/28/20 06:24 pregabalin [From Lyrica] AdvReac DEPRESSION Verified 10/28/20 06:24 Surgical - Exam Vital Signs Temp Pulse Resp BP Pulse Ox 97.4 F L 95 16 144/79 98 10/28/20 06:23 10/28/20 06:23 10/28/20 06:23 10/28/20 06:23 10/28/20 06:23 - General well developed, well nourished, no distress - Eyes PERRL - ENT normal pinna - Neck no masses - Respiratory normal expansion - Cardiovascular Rhythm: regular - Abdomen Abdomen: soft, non tender Hernia: incisional (3 cm) Results - Labs Abnormal Lab Results - Last 24 Hours (Table) 10/28/20 Range/Units 06:40 Delta Bilirubin 0.4 H (0.0-0.2) mg/dL AST 58 H (14-36) U/L ALT 61 H (4-34) U/L Diabetes panel 10/28/20 Range/Units 06:40 AST 58 H (14-36) U/L ALT 61 H (4-34) U/L Alkaline Phosphatase 121 (38-126) U/L Total Protein 6.9 (6.3-8.2) g/dL Albumin 4.0 (3.5-5.0) g/dL Calcium panel 10/28/20 Range/Units 06:40 Albumin 4.0 (3.5-5.0) g/dL Adrenal panel 10/28/20 Range/Units 06:40 Total Bilirubin 0.9 (0.2-1.3) mg/dL AST 58 H (14-36) U/L ALT 61 H (4-34) U/L Alkaline Phosphatase 121 (38-126) U/L Total Protein 6.9 (6.3-8.2) g/dL Albumin 4.0 (3.5-5.0) g/dL Assessment and Plan Assessment: Incisional hernia. We'll perform laparoscopic robotic-assisted repair.
[2020-10-28] MEDS ORDERED: BUPIVACAINE (PF) 0.5% 30 ML VIAL SQ ONE (08:09)
[2020-10-28] MEDS ORDERED: LIDOCAINE 0.5% (PF) 5 MG/ML (50 ML SDV) SQ ONE ×2 (08:09)
--- NOTE | 2020-10-28 08:42 | P.OP ---
Date of Procedure: 10/28/20 Preoperative Diagnosis: Recurrent incisional hernia Postoperative Diagnosis: Recurrent incisional hernia Procedure(s) Performed: Endoscopic robust pair of recurrent incisional hernia Anesthesia: MISAELA Surgeon: Ronny Kruse Estimated Blood Loss (ml): 5 Pathology: none sent Condition: stable Disposition: PACU Description of Procedure: The patient was placed on the operating table in the supine position. He received general anesthesia. His abdomen was prepped and draped usual fashion. Using a 5 mm optical trocar under direct visualization the peritoneal cavity was entered in the left upper quadrant. The abdomen was then insufflated. The laparoscope was placed back into the perineal cavity. Next a 8 mm robotic trocar was placed in the left lower quadrant and a 12 mm robotic trocar was placed in the left lateral position. The original 5 mm trocar was exchanged for a 8 mm robotic trocar. The patient's placed in the left side up position. And the patient was docked to the robot. The incisional hernia was visualized. Using hook cautery the peritoneum over the incisional hernia was excised. The fascial opening was repaired using 0V LOC suture. Next a piece of 11 cm round ventral light ST mesh was placed into the. Cavity and secured with 2 OV lock suture. The patient was undocked the robot. The needles were retrieved. The fascia of the 12 mm trocar site was closed with 0 Ethibond suture. Skin was closed interrupted 3-0 Monocryl suture. Dermabond dressings was applied. Patient tolerated procedure well and was sent to recovery room stable condition.
[2020-10-28] MEDS: fentaNYL (PF) 50 MCG/ML 2 ML AMP IVP ONE ×2 (08:52→09:18)
[2020-10-28] MEDS ORDERED: HYDROmorphone 0.5 MG/0.5 ML SYRINGE IVP ONE ×2 (12:25→12:29)
[2020-10-28] MEDS ORDERED: ONDANSETRON 4 MG/2 ML VIAL IVP PRN (15:04)
[2020-10-28] MEDS: HYDROmorphone 1 MG/ML 1 ML SYRINGE IVP PRN ×2 (15:13→21:11)
[2020-10-28] MEDS ORDERED: METOCLOPRAMIDE 5 MG/ML 2 ML VIAL IVP PRN (15:16)
[2020-10-28] MEDS ORDERED: HYDROmorphone 0.5 MG/0.5 ML SYRINGE IVP PRN (15:16)
[2020-10-28] MEDS ORDERED: NALOXONE 0.4 MG/ML 1 ML VIAL IV PRN (15:16)
[2020-10-28] MEDS ORDERED: LACTATED RINGERS 1,000 ML IV ONE (15:16)
[2020-10-28] MEDS ORDERED: ACETAMINOPHEN TAB 325 MG TAB PO PRN (15:16)
[2020-10-28] MEDS: KETOROLAC 15 MG/ML 1 ML VIAL IVP SCH ×2 (17:43→23:58)
[2020-10-28] MEDS: DOCUSATE 100 MG CAP PO SCH (21:11)
[2020-10-29] MEDS: HYDROcodone/APAP 5-325MG 1 EACH TAB PO PRN ×2 (03:22→08:22)
[2020-10-29] MEDS: KETOROLAC 15 MG/ML 1 ML VIAL IVP SCH ×2 (05:27→12:00)
[2020-10-29] MEDS: DOCUSATE 100 MG CAP PO SCH (08:14)
[2020-10-29 08:59] LABS: Basophils # (A) 0.1 k/uL (0-0.2); Basophils % (A) 1 %; Eosinophils # (A) 0.2 k/uL (0-0.7); Eosinophils % (A) 3 %; HCT 40.4 % (34.0-46.0); Lymphocytes # (A) 1.7 k/uL (1.0-4.8); Lymphocytes % (A) 24 %; MCH 35.1 pg (25.0-35.0); MCHC 34.7 g/dL (31.0-37.0); MCV 101.1 fL (80.0-100.0); Macrocytosis Slight; Mean Platelet Volume 7.9; Monocytes # (A) 0.4 k/uL (0-1.0); Monocytes % (A) 6 %; Neutrophils # (A) 4.6 k/uL (1.3-7.7); Neutrophils % (A) 66 %; Platelet Count 202 k/uL (150-450); RDW 14.1 % (11.5-15.5); WBC 7.1 k/uL (3.8-10.6)
[2020-10-29] MEDS ORDERED: ENOXAPARIN 40 MG/0.4 ML SYRINGE SQ SCH (09:00)
[2020-10-29] MEDS ORDERED: HYDROcodone/APAP 7.5-325MG 1 EACH TAB PO PRN ×2 (09:03→09:06)
[2020-10-29 09:19] LABS: Amylase 39 U/L (30-110); Lipase 73 U/L (23-300)
[2020-10-29 09:21] LABS: ALT 46 U/L (4-34); AST 45 U/L (14-36); African American GFR (CKD) >90 (>60 ml/min/1.73 sqM); Albumin 3.7 g/dL (3.5-5.0); Albumin/Globulin Ratio 1.5; Alkaline Phosphatase 110 U/L (38-126); Anion Gap 3 mmol/L; Blood Urea Nitrogen 4 mg/dL (7-17); Calcium 9.4 mg/dL (8.4-10.2); Carbon Dioxide 30 mmol/L (22-30); Chloride 105 mmol/L (98-107); Globulin 2.4 g/dL; Glucose 101 mg/dL (74-99); Non-African American GFR(CKD) >90 (>60 ml/min/1.73 sqM); Potassium 4.1 mmol/L (3.5-5.1); Sodium 138 mmol/L (137-145); Total Protein 6.1 g/dL (6.3-8.2)
[2020-10-29] MEDS ORDERED: PANTOPRAZOLE 40 MG/10 ML VIAL IVP SCH (10:45)
--- NOTE | 2020-10-29 14:11 | P.CONS ---
History of Present Illness - Reason for Consult Consult date: 10/29/20 Medical management fibromyalgia hypothyroidism, COPD Requesting physician: Ronny Kruse - Chief Complaint Recurrent mid epigastric hernia, status post surgical repair - History of Present Illness This is a 55-year-old admitted with recurrent mid epigastric hernia, status post surgical repair in a patient with past medical history of COPD, fibromyalgia, gastroesophageal reflux disease, hypothyroidism, ongoing nicotine dependence and multiple other medical issues. Tolerated procedure well. Reports significant pain. T bili within normal limits, minimal elevation of AST, ALT. Lipase within normal limits. MCV 101.1. No flatus, no bowel movement. EKG ,scanning in , currently unable to open. Denies chest pain, palpitations or shortness of breath. Denies lightheadedness, dizziness or focal deficits. Minimal diet intake up to 25%. Denies nausea, vomiting. Afebrile, normal WBC. Review of Systems ROS Statement: Those systems with pertinent positive or pertinent negative responses have been documented in the HPI. ROS Other: All systems not noted in ROS Statement are negative. 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 pancreatitis Sep 2020 Last Myocardial Infarction Date:: unkn History of Any Multi-Drug Resistant Organisms: None Reported Past Surgical History: Section, Cholecystectomy, Hernia Repair, Hysterectomy, Tubal Ligation Additional Past Surgical History / Comment(s): Parathyroidectomy, open heart surgery at age 6 to close a hole in heart, R eye surgery to remove benign tumors, umbilical hernia surgery x 2, colonoscopy Past Anesthesia/Blood Transfusion Reactions: Motion Sickness Additional Past Anesthesia/Blood Transfusion Reaction / Comm: Difficulty waking and "vitals dropped" with a previous surgery. Past Psychological History: Anxiety, Depression Smoking Status: Current every day smoker Past Alcohol Use History: Rare Additional Past Alcohol Use History / Comment(s): started smoking at age 13, smokes 1/2 pack a day Past Drug Use History: None Reported - Past Family History Father History Unknown: Yes Additional Family Medical History / Comment(s): Pt is adopted. Mother Family Medical History: No Reported History Additional Family Medical History / Comment(s): Biological mother at age 33 y/o of brain aneuyrsm. Pt is adopted. Medications and Allergies Home Medications Medication Instructions Recorded Confirmed Type Levothyroxine Sodium [Synthroid] 88 mcg PO QAM 03/02/17 10/26/20 History Naproxen [Naprosyn] 500 mg PO Q12HR PRN 12/21/17 10/26/20 History Docusate [Colace] 100 mg PO DAILY 10/26/20 10/26/20 History traMADol HCL [Ultram] 50 mg PO Q4HR PRN 10/26/20 10/26/20 History Acetaminophen Tab [Tylenol] 650 mg PO Q6H #30 tab 10/28/20 Rx Docusate [Colace] 100 mg PO BID #20 capsule 10/28/20 Rx Ibuprofen [Motrin] 600 mg PO Q6HR PRN #40 tab 10/28/20 Rx oxyCODONE HCL [OxyIR] 5 mg PO Q4H PRN 3 Days #18 tab 10/28/20 Rx Allergies Allergy/AdvReac Type Severity Reaction Status Date / Time bupivacaine [From Marcaine] Allergy Swelling Verified 10/28/20 06:24 methylprednisolone Allergy Swelling Verified 10/28/20 06:24 [From Depo-Medrol] prednisolone Allergy Swelling Verified 10/28/20 06:24 duloxetine [From Cymbalta] AdvReac FATIGUE Verified 10/28/20 06:24 pregabalin [From Lyrica] AdvReac DEPRESSION Verified 10/28/20 06:24 Physical Exam Vitals: Vital Signs Temp Pulse Resp BP Pulse Ox 10/29/20 07:51 98.5 F 91 20 143/83 95 10/29/20 01:04 98.4 F 87 16 134/87 95 10/28/20 19:20 22 10/28/20 15:55 99 10/28/20 14:00 99 22 157/86 91 L 10/28/20 13:30 89 18 158/68 96 10/28/20 13:00 78 20 152/86 96 10/28/20 12:30 97 20 158/82 94 L 10/28/20 11:50 99 20 147/70 93 L 10/28/20 11:36 100 20 144/72 93 L 10/28/20 11:18 101 H 18 149/72 93 L 10/28/20 11:03 100 18 155/79 95 10/28/20 10:47 94 18 177/100 95 Intake and Output 10/28/20 10/29/20 10/29/20 22:59 06:59 14:59 Intake Total 300 Output Total 650 Balance -350 Intake: IV 300 Lactated Ringers 1,000 ml 300 @ 75 mls/hr IV .[id number] Rx#:[id number] Output: Urine 650 Other: Voiding Method Toilet # Voids 1 Weight 65.7 kg PHYSICAL EXAM: VITAL SIGNS: As above GENERAL: Sitting up in bed, no acute distress, teary-eyed HEENT: Conjunctivae normal. eyes normal. Hoarse voice. NECK: No JVD. No thyroid enlargement. Trachea midline, No LNs CARDIOVASCULAR: S1, S2 regular. No murmur RESPIRATION: Breath sounds diminished in the bases. No rhonchi or crackles. No bronchial breathing. ABDOMEN: Soft, status post surgery , hypoactive Bowel sounds heard, binder present LEGS: No edema. no swelling PSYCHIATRY: Alert and oriented X3, mood and affect normal. NERVOUS SYSTEM: Cranial N 2-12 grossly normal.No focal deficits. Strength and sensation grossly intact.. Skin: Warm and dry, no rash Results CBC & Chem 7: 10/29/20 08:45 10/29/20 08:45 Labs: Abnormal Lab Results - Last 24 Hours (Table) 10/29/20 10/29/20 Range/Units 08:45 08:45 MCV 101.1 H (80.0-100.0) fL MCH 35.1 H (25.0-35.0) pg BUN 4 L (7-17) mg/dL Glucose 101 H (74-99) mg/dL AST 45 H (14-36) U/L ALT 46 H (4-34) U/L Total Protein 6.1 L (6.3-8.2) g/dL Assessment and Plan Assessment: Recurrent incisional hernia, status post surgical repair Acute hypoxic respiratory failure, secondary to the above Atelectasis COPD, stable Gastroesophageal reflux disease CAD, history of [place] Osteoarthritis Hypothyroidism Ongoing nicotine dependence Anxiety Depression History of pancreatitis Hepatosplenomegaly History of fibromyalgia Plan: Continue on current medication regime ,monitoring and symptomatic treatment. Wean off oxygen. Home meds have been reviewed and resumed accordingly. Magnesium level pending. Pain management. Increase ambulation as tolerated. Smoking cessation reinforced. Discharge planning in progress pending pain better controlled, as per primary. Follow-up with PCP in one week. Thank you for the consult. The impression and plan of care has been dictated as directed. : I performed a history and examination of this patient, discussed the same with the dictator. I agree with the dictator's note ,documented as a scribe. Any additional findings or plans will be noted.
[2020-10-29 14:31] VITALS: BP 152/89; PULSE 98; RESP 16; TEMP 98.4
--- NOTE | 2020-10-29 14:43 | P.DS ---
Providers Date of admission: 10/28/20 23:14 Expected date of discharge: 10/29/20 Attending physician: Ronny Kruse Consults: 10/28/20 15:16 Consult Physician Routine Consulting Provider: Sameer Bliss Consult Reason/Comments: Medical management Do you want consulting provider notified?: Yes Primary care physician: Sameer Bliss Hospital Course: Discharge diagnosis 1. Recurrent incisional hernia status post laparoscopic robotic repair of recurrent incisional hernia Hospital course This is a 55-year-old female with a known history of recurrent incisional hernia status post laparoscopic robotic repair of recurrent incisional hernia. Patient was admitted to the hospital overnight due to increased and her abdominal pain. Abdominal pain has improved. She is tolerating diet. Her pain is controlled. She is ambulating. Afebrile. Patient is stable for discharge. Please refer to chart for any further details. Physician Photographer'S Model note has been reviewed by physician. Signing provider agrees with the documented findings, assessment, and plan of care. Patient Condition at Discharge: Stable Plan - Discharge Summary Discharge Rx Participant: Yes New Discharge Prescriptions: New Docusate [Colace] 100 mg PO BID #20 capsule Ibuprofen [Motrin] 600 mg PO Q6HR PRN #40 tab PRN Reason: Pain oxyCODONE HCL [OxyIR] 5 mg PO Q4H PRN 3 Days #18 tab PRN Reason: Pain Acetaminophen Tab [Tylenol] 650 mg PO Q6H #30 tab Continue Levothyroxine Sodium [Synthroid] 88 mcg PO QAM traMADol HCL [Ultram] 50 mg PO Q4HR PRN PRN Reason: Pain Discontinued Naproxen [Naprosyn] 500 mg PO Q12HR PRN PRN Reason: Pain Docusate [Colace] 100 mg PO DAILY Discharge Medication List Levothyroxine Sodium [Synthroid] 88 mcg PO QAM 03/02/17 [History] traMADol HCL [Ultram] 50 mg PO Q4HR PRN 10/26/20 [History] Acetaminophen Tab [Tylenol] 650 mg PO Q6H #30 tab 10/28/20 [Rx] Docusate [Colace] 100 mg PO BID #20 capsule 10/28/20 [Rx] Ibuprofen [Motrin] 600 mg PO Q6HR PRN #40 tab 10/28/20 [Rx] oxyCODONE HCL [OxyIR] 5 mg PO Q4H PRN 3 Days #18 tab 10/28/20 [Rx] Follow up Appointment(s)/Referral(s): Ronny Kruse MD [STAFF PHYSICIAN] - 11/03/20 2:30 pm Patient Instructions/Handouts: *Surgery [facility] - (Anesthesia) Discharge Instructions Outpatient Surgery, Ventral Hernia Repair (DC) Activity/Diet/Wound Care/Special Instructions: No driving while taking [place] No lifting over 10 pounds You may shower. No soaking or tub baths for 2 weeks Very light activity until you are reevaluated at your follow up appointment with your surgeon Diet regular Discharge Disposition: HOME SELF-CARE
[2020-10-30] MEDS ORDERED: LEVOTHYROXINE 88 MCG TAB PO SCH (06:30)
== END 2020-10-29 15:30 | disposition home or self-care (01) ==
LOC: OR 05:56 → 4SSUR 08:39 → OR 14:30 → 4SSUR 23:14 → OR 23:46
PROVIDERS: ADMIT Surgery; ATTEND Surgery
DX: K43.2 Incisional hernia without obstruction or gangrene (principal); J44.9 Chronic obstructive pulmonary disease, unspecified; M79.7 Fibromyalgia; K21.9 Gastro-esophageal reflux disease without esophagitis; E78.5 Hyperlipidemia, unspecified; I25.2 Old myocardial infarction; M19.90 Unspecified osteoarthritis, unspecified site; G89.29 Other chronic pain; M54.2 Cervicalgia; M54.5 Low back pain; E89.0 Postprocedural hypothyroidism; F32.9 Major depressive disorder, single episode, unspecified; F41.9 Anxiety disorder, unspecified; F17.210 Nicotine dependence, cigarettes, uncomplicated; J98.11 Atelectasis; I25.10 Atherosclerotic heart disease of native coronary artery without angina pectoris; R16.2 Hepatomegaly with splenomegaly, not elsewhere classified; G56.03 Carpal tunnel syndrome, bilateral upper limbs; G62.9 Polyneuropathy, unspecified; Z87.19 Personal history of other diseases of the digestive system; Z90.49 Acquired absence of other specified parts of digestive tract; Z90.710 Acquired absence of both cervix and uterus; Z79.890 Hormone replacement therapy; Z79.1 Long term (current) use of non-steroidal anti-inflammatories (NSAID); Z79.899 Other long term (current) drug therapy; Z79.891 Long term (current) use of opiate analgesic; Z88.4 Allergy status to anesthetic agent; Z88.8 Allergy status to other drugs, medicaments and biological substances; Z82.49 Family history of ischemic heart disease and other diseases of the circulatory system
CPT/HCPCS: 49657; S2900; 80053; 80076; 82150; 83690; 83735; 85025; 93005

== ENCOUNTER 2020-11-19 11:25 | Observation (INO) | payer OTHER ==
[2020-11-19] MEDS ORDERED: ONDANSETRON 4 MG/2 ML VIAL IVP STA (12:07)
[2020-11-19] MEDS ORDERED: HYDROmorphone 0.5 MG/0.5 ML SYRINGE IVP STA ×2 (12:07→13:06)
[2020-11-19] MEDS ORDERED: SODIUM CHLORIDE 0.9% 1,000 ML IV STA (12:07)
[2020-11-19 12:21] LABS: Basophils # (A) 0.2 k/uL (0-0.2); Basophils % (A) 2 %; Eosinophils # (A) 0.3 k/uL (0-0.7); Eosinophils % (A) 4 %; HCT 47.8 % (34.0-46.0); HGB 16.6 gm/dL (11.4-16.0); Lymphocytes # (A) 1.9 k/uL (1.0-4.8); Lymphocytes % (A) 24 %; MCH 34.7 pg (25.0-35.0); MCHC 34.8 g/dL (31.0-37.0); MCV 99.7 fL (80.0-100.0); Mean Platelet Volume 9.7; Monocytes # (A) 0.3 k/uL (0-1.0); Monocytes % (A) 4 %; Neutrophils # (A) 5.3 k/uL (1.3-7.7); Neutrophils % (A) 65 %; Platelet Count 238 k/uL (150-450); RBC 4.79 m/uL (3.80-5.40); RDW 13.4 % (11.5-15.5); WBC 8.2 k/uL (3.8-10.6)
--- NOTE | 2020-11-19 12:41 | ED ---
General Adult HPI - General Source: patient, RN notes reviewed Mode of arrival: ambulatory Limitations: no limitations <Regino Covarrubias - Last Filed: 11/19/20 14:04> <Sky Talamantes - Last Filed: 11/19/20 15:07> - General Chief complaint: Abdominal Pain Stated complaint: Post Op Hernia Surgery Issues Time Seen by Provider: 11/19/20 11:39 - History of Present Illness Initial comments: 55-year-old female with a past medical history of COPD, fibromyalgia, GERD, hyperlipidemia presents to the emergency room for a chief complaint of abdominal pain. Patient reports that over the past day or so she developed left lower quadrant pain radiating to her back. She did have a laparoscopic hernia repair in this area about [address] Kruse. Patient states she is having normal bowel movements and had 2 today. She denies nausea vomiting care to denies fevers or chills.Patient has no other complaints at this time including shortness of breath, chest pain, nausea or vomiting, headache, or visual changes. (Regino Covarrubias) - Related Data Home Medications Medication Instructions Recorded Confirmed Levothyroxine Sodium [Synthroid] 88 mcg PO QAM 03/02/17 11/19/20 Acetaminophen Tab [Tylenol] 650 mg PO Q6H PRN 11/19/20 11/19/20 Previous Rx's Medication Instructions Recorded Docusate [Colace] 100 mg PO BID #20 capsule 10/28/20 Allergies Allergy/AdvReac Type Severity Reaction Status Date / Time bupivacaine [From Marcaine] Allergy Swelling Verified 11/19/20 13:40 methylprednisolone Allergy Swelling Verified 11/19/20 13:40 [From Depo-Medrol] prednisolone Allergy Swelling Verified 11/19/20 13:40 duloxetine [From Cymbalta] AdvReac FATIGUE Verified 11/19/20 13:40 pregabalin [From Lyrica] AdvReac DEPRESSION Verified 11/19/20 13:40 Review of Systems ROS Other: All systems not noted in ROS Statement are negative. <Regino Covarrubias - Last Filed: 11/19/20 14:04> ROS Other: All systems not noted in ROS Statement are negative. <Sky Talamantes - Last Filed: 11/19/20 15:07> ROS Statement: Those systems with pertinent positive or pertinent negative responses have been documented in the HPI. 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 pancreatitis Sep 2020 Last Myocardial Infarction Date:: unkn History of Any Multi-Drug Resistant Organisms: None Reported Past Surgical History: Section, Cholecystectomy, Hernia Repair, Hysterectomy, Tubal Ligation Additional Past Surgical History / Comment(s): Parathyroidectomy, open heart surgery at age 6 to close a hole in heart, R eye surgery to remove benign tumors, umbilical hernia surgery x 2, colonoscopy Past Anesthesia/Blood Transfusion Reactions: Motion Sickness Additional Past Anesthesia/Blood Transfusion Reaction / Comment(s): Difficulty waking and "vitals dropped" with a previous surgery. Past Psychological History: Anxiety, Depression Smoking Status: Current every day smoker Past Alcohol Use History: None Reported, Rare Past Drug Use History: None Reported - Past Family History Father History Unknown: Yes Additional Family Medical History / Comment(s): Pt is adopted. Mother Family Medical History: No Reported History Additional Family Medical History / Comment(s): Biological mother at age 33 y/o of brain aneuyrsm. Pt is adopted. <Regino Covarrubias P - Last Filed: 11/19/20 14:04> General Exam Limitations: no limitations General appearance: alert, anxious Head exam: Present: atraumatic, normocephalic, normal inspection Eye exam: Present: normal appearance, PERRL, EOMI. Absent: scleral icterus, conjunctival injection, periorbital swelling ENT exam: Present: normal exam, mucous membranes moist Neck exam: Present: normal inspection, full ROM. Absent: tenderness, meningismus, lymphadenopathy Respiratory exam: Present: normal lung sounds bilaterally. Absent: respiratory distress, wheezes, rales, rhonchi, stridor Cardiovascular Exam: Present: regular rate, normal rhythm, normal heart sounds. Absent: systolic murmur, diastolic murmur, rubs, gallop, clicks GI/Abdominal exam: Present: soft, tenderness (LLQ tenderness), normal bowel sounds. Absent: distended, guarding, rebound, rigid Neurological exam: Present: alert <Regino Covarrubias - Last Filed: 11/19/20 14:04> Course Vital Signs 11/19/20 11/19/20 11:34 14:49 Temperature 98.7 F Pulse Rate 107 H 89 Respiratory 18 16 Rate Blood Pressure 156/74 142/76 O2 Sat by Pulse 97 99 Oximetry Procedures - [place] Protocol (Time Out) Nurse: Connor Roblero <Regino Covarrubias - Last Filed: 11/19/20 14:04> Medical Decision Making - Lab Data Result diagrams: 11/19/20 12:11 11/19/20 12:11 <Regino Covarrubias - Last Filed: 11/19/20 14:04> - Lab Data Result diagrams: 11/19/20 12:11 11/19/20 12:11 - Radiology Data Radiology results: report reviewed (Computed tomography scan of the abdomen pelvis shows possible colitis. There is also some inflammatory changes near the abdominal wall) <Sky Talamantes - Last Filed: 11/19/20 15:07> - Medical Decision Making Vitals are stable. Slight tachycardia likely secondary to pain. Patient presents for generalized abdominal pain worsening left lower quadrant. Hernia repair laparoscopically performed by Dr. Kruse on October 28. Physical exam does reveal minimal abdominal tenderness. Slight distention. CBC unremarkable aside from he'll concentration likely secondary to dehydration. CMP does show mild transaminitis which is chronic. Lactic acid of 2.1 likely secondary to dehydration as well. Urinalysis is negative. CT abdomen and pelvis pending. (Regino Covarrubias) Patient was reevaluated by myself, Dr. Talamantes. Patient resting comfortably in bed however still complaining of discomfort. Abdomen is soft with moderate tenderness in the umbilical region. Incisions left lateral side from laparoscopic procedure are clean and dry and intact and nontender. Patient updated on results and plan. Case was discussed with Dr. Perales, covering for Dr. Kruse, who will keep for observation (Sky Talamantes) - Lab Data Lab Results 11/19/20 11/19/20 11/19/20 Range/Units 12:11 12:11 12:11 WBC 8.2 (3.8-10.6) k/uL RBC 4.79 (3.80-5.40) m/uL Hgb 16.6 H (11.4-16.0) gm/dL Hct 47.8 H (34.0-46.0) % MCV 99.7 (80.0-100.0) fL MCH 34.7 (25.0-35.0) pg MCHC 34.8 (31.0-37.0) g/dL RDW 13.4 (11.5-15.5) % Plt Count 238 (150-450) k/uL MPV 9.7 Neutrophils % 65 % Lymphocytes % 24 % Monocytes % 4 % Eosinophils % 4 % Basophils % 2 % Neutrophils # 5.3 (1.3-7.7) k/uL Lymphocytes # 1.9 (1.0-4.8) k/uL Monocytes # 0.3 (0-1.0) k/uL Eosinophils # 0.3 (0-0.7) k/uL Basophils # 0.2 (0-0.2) k/uL Sodium 139 (137-145) mmol/L Potassium 5.1 (3.5-5.1) mmol/L Chloride 110 H (98-107) mmol/L Carbon Dioxide 22 (22-30) mmol/L Anion Gap 7 mmol/L BUN 8 (7-17) mg/dL Creatinine 0.54 (0.52-1.04) mg/dL Est GFR (CKD-EPI)AfAm >90 (>60 ml/min/1.73 sqM) Est GFR (CKD-EPI)NonAf >90 (>60 ml/min/1.73 sqM) Glucose 137 H (74-99) mg/dL Lactic Ac Sepsis Rflx Plasma Lactic Acid Mynor 2.1 H* (0.7-2.0) mmol/L Calcium 10.0 (8.4-10.2) mg/dL Total Bilirubin 1.2 (0.2-1.3) mg/dL AST 67 H (14-36) U/L ALT 108 H (4-34) U/L Alkaline Phosphatase 146 H (38-126) U/L Total Protein 8.2 (6.3-8.2) g/dL Albumin 4.5 (3.5-5.0) g/dL Amylase 61 (30-110) U/L Lipase 99 (23-300) U/L Urine Color Urine Appearance (Clear) Urine pH (5.0-8.0) Ur Specific Robert (1.001-1.035) Urine Protein (Negative) Urine Glucose (UA) (Negative) Urine Ketones (Negative) Urine Blood (Negative) Urine Nitrite (Negative) Urine Bilirubin (Negative) Urine Urobilinogen (<2.0) mg/dL Ur Leukocyte Esterase (Negative) 11/19/20 11/19/20 Range/Units 12:34 13:19 WBC (3.8-10.6) k/uL RBC (3.80-5.40) m/uL Hgb (11.4-16.0) gm/dL Hct (34.0-46.0) % MCV (80.0-100.0) fL MCH (25.0-35.0) pg MCHC (31.0-37.0) g/dL RDW (11.5-15.5) % Plt Count (150-450) k/uL MPV Neutrophils % % Lymphocytes % % Monocytes % % Eosinophils % % Basophils % % Neutrophils # (1.3-7.7) k/uL Lymphocytes # (1.0-4.8) k/uL Monocytes # (0-1.0) k/uL Eosinophils # (0-0.7) k/uL Basophils # (0-0.2) k/uL Sodium (137-145) mmol/L Potassium (3.5-5.1) mmol/L Chloride (98-107) mmol/L Carbon Dioxide (22-30) mmol/L Anion Gap mmol/L BUN (7-17) mg/dL Creatinine (0.52-1.04) mg/dL Est GFR (CKD-EPI)AfAm (>60 ml/min/1.73 sqM) Est GFR (CKD-EPI)NonAf (>60 ml/min/1.73 sqM) Glucose (74-99) mg/dL Lactic Ac Sepsis Rflx Y Plasma Lactic Acid Mynor (0.7-2.0) mmol/L Calcium (8.4-10.2) mg/dL Total Bilirubin (0.2-1.3) mg/dL AST (14-36) U/L ALT (4-34) U/L Alkaline Phosphatase (38-126) U/L Total Protein (6.3-8.2) g/dL Albumin (3.5-5.0) g/dL Amylase (30-110) U/L Lipase (23-300) U/L Urine Color Colorless Urine Appearance Clear (Clear) Urine pH 7.0 (5.0-8.0) Ur Specific Robert 1.026 (1.001-1.035) Urine Protein Negative (Negative) Urine Glucose (UA) Negative (Negative) Urine Ketones Negative (Negative) Urine Blood Negative (Negative) Urine Nitrite Negative (Negative) Urine Bilirubin Negative (Negative) Urine Urobilinogen <2.0 (<2.0) mg/dL Ur Leukocyte Esterase Negative (Negative) Disposition <Regino Covarrubias - Last Filed: 11/19/20 14:04> Is patient prescribed a controlled substance at d/c from ED?: No Decision Time: 15:07 <Sky Talamantes - Last Filed: 11/19/20 15:07> Clinical Impression: Abdominal pain Disposition: ADMITTED IP TO THIS HOSP Referrals: Sameer Bliss MD [Primary Care Provider] - 1-2 days
[2020-11-19 12:51] LABS: ALT 108 U/L (4-34); African American GFR (CKD) >90 (>60 ml/min/1.73 sqM); Amylase 61 U/L (30-110); Anion Gap 7 mmol/L; Blood Urea Nitrogen 8 mg/dL (7-17); Carbon Dioxide 22 mmol/L (22-30); Chloride 110 mmol/L (98-107); Glucose 137 mg/dL (74-99); Lipase 99 U/L (23-300); Non-African American GFR(CKD) >90 (>60 ml/min/1.73 sqM); Sodium 139 mmol/L (137-145); Total Bilirubin 1.2 mg/dL (0.2-1.3)
[2020-11-19 12:53] LABS: AST 67 U/L (14-36); Alkaline Phosphatase 146 U/L (38-126); Potassium 5.1 mmol/L (3.5-5.1)
[2020-11-19 12:54] LABS: Albumin 4.5 g/dL (3.5-5.0); Total Protein 8.2 g/dL (6.3-8.2)
[2020-11-19 13:34] LABS: Appearance,Urine Clear (Clear); Bilirubin,Urine Negative (Negative); Blood,Urine Negative (Negative); Color,Urine Colorless; Glucose,Urine (UA) Negative (Negative); Ketones,Urine Negative (Negative); Leukocyte Esterase,Urine Negative (Negative); Nitrite,Urine Negative (Negative); Protein,Urine Negative (Negative); Specific Gravity,Urine 1.026 (1.001-1.035); Urobilinogen,Urine <2.0 mg/dL (<2.0)
[2020-11-19] MEDS ORDERED: KETOROLAC 15 MG/ML 1 ML VIAL IVP STA (14:08)
--- NOTE | 2020-11-19 14:36 | CT ---
EXAMINATION TYPE: CT abdomen pelvis w con DATE OF EXAM: 11/19/2020 COMPARISON: CT 09/25/2020 HISTORY: generalized abdominal pain post hernia repair CT DLP: 601.6 mGycm Automated exposure control for dose reduction was used. TECHNIQUE: Helical acquisition of images from the lung bases through the pelvis have been completed. CONTRAST: Performed without Oral Contrast and with IV Contrast, patient injected with 100 mL of Isovue 300. FINDINGS: Small periumbilical inflammatory change, abdominal wall hernia is present containing fat LUNG BASES: No significant abnormality is appreciated. AORTA: No significant abnormality is appreciated. LIVER/GB: Patient is post cholecystectomy. Liver shows low attenuation likely due to hepatic steatosi s.. PANCREAS: No significant abnormality is seen. SPLEEN: No significant abnormality is seen. ADRENALS: Small low dense focus associated with the right adrenal gland is stable and likely represen ts adenoma, similar findings present on the left as on prior exam.. KIDNEYS: No significant abnormality is seen. REPRODUCTIVE ORGANS: Not seen BOWEL: Colonic interposition present anterior to the liver. Diverticular changes extensive especiall y in the sigmoid colon. There is some colonic wall thickening.. FREE AIR: No Free Air visible. ASCITES: None visible. PELVIC ADENOPATHY: None visualized. RETROPERITONEAL ADENOPATHY: No Retroperitoneal Adenopathy visible. URINARY BLADDER: No significant abnormality is seen. OSSEOUS STRUCTURES: No significant abnormality is seen. IMPRESSION: DIVERTICULOSIS, CORRELATE FOR POSSIBLE COLITIS. FINDINGS ALONG ANTERIOR ABDOMINAL WALL SUGGESTS SOME POSSIBLE INFLAMMATORY CHANGE INVOLVING THE ANTERIOR ABDOMINAL WALL HERNIA AND FAT, CORRELATE FOR TEND ERNESS. Hepatic steatosis, postop changes and additional findings above
[2020-11-19] MEDS ORDERED: ACETAMINOPHEN TAB 325 MG TAB PO PRN (15:08)
[2020-11-19] MEDS ORDERED: HYDROmorphone 0.5 MG/0.5 ML SYRINGE IVP PRN (15:08)
[2020-11-19] MEDS ORDERED: NALOXONE 0.4 MG/ML 1 ML VIAL IV PRN (15:08)
[2020-11-19] MEDS ORDERED: ONDANSETRON 4 MG/2 ML VIAL IVP PRN (15:08)
[2020-11-19] MEDS: SODIUM CHLORIDE 0.9% 1,000 ML IV SCH (16:13)
[2020-11-19] MEDS: NICOTINE 21MG/24HR PATCH TRANSDERM SCH (16:13)
[2020-11-19] MEDS: HYDROmorphone 1 MG/ML 1 ML SYRINGE IVP PRN ×2 (18:15→21:40)
[2020-11-20] MEDS: HYDROmorphone 1 MG/ML 1 ML SYRINGE IVP PRN ×3 (01:06→08:07)
[2020-11-20 04:51] VITALS: PULSE 84; TEMP 97.9
[2020-11-20 05:57] LABS: Basophils # (A) 0.1 k/uL (0-0.2); Basophils % (A) 1 %; Eosinophils # (A) 0.4 k/uL (0-0.7); Eosinophils % (A) 8 %; Lymphocytes # (A) 1.6 k/uL (1.0-4.8); Lymphocytes % (A) 31 %; MCHC 33.4 g/dL (31.0-37.0); MCV 101.8 fL (80.0-100.0); Macrocytosis Slight; Mean Platelet Volume 8.2; Monocytes # (A) 0.3 k/uL (0-1.0); Monocytes % (A) 6 %; Neutrophils # (A) 2.7 k/uL (1.3-7.7); Neutrophils % (A) 53 %; Platelet Count 201 k/uL (150-450); RBC 4.13 m/uL (3.80-5.40); RDW 13.3 % (11.5-15.5); WBC 5.1 k/uL (3.8-10.6)
[2020-11-20 06:08] LABS: ALT 73 U/L (4-34); AST 28 U/L (14-36); African American GFR (CKD) >90 (>60 ml/min/1.73 sqM); Albumin 3.4 g/dL (3.5-5.0); Alkaline Phosphatase 114 U/L (38-126); Amylase 44 U/L (30-110); Anion Gap 2 mmol/L; Blood Urea Nitrogen 11 mg/dL (7-17); Calcium 9.1 mg/dL (8.4-10.2); Carbon Dioxide 31 mmol/L (22-30); Chloride 106 mmol/L (98-107); Glucose 109 mg/dL (74-99); Lipase 126 U/L (23-300); Non-African American GFR(CKD) >90 (>60 ml/min/1.73 sqM); Sodium 139 mmol/L (137-145); Total Bilirubin 0.5 mg/dL (0.2-1.3); Total Protein 5.8 g/dL (6.3-8.2)
[2020-11-20] MEDS: SODIUM CHLORIDE 0.9% 1,000 ML IV SCH (06:11)
[2020-11-20 08:04] VITALS: BP 140/95; RESP 18
[2020-11-20] MEDS: NICOTINE 21MG/24HR PATCH TRANSDERM SCH (08:30)
[2020-11-20] MEDS ORDERED: PANTOPRAZOLE 40 MG/10 ML VIAL IV SCH (09:00)
[2020-11-20] MEDS ORDERED: HYDROcodone/APAP 5-325MG 1 EACH TAB PO PRN (09:38)
--- NOTE | 2020-11-20 09:40 | P.GSHP ---
History of Present Illness H&P Date: 11/20/20 Chief Complaint: Epigastric abdominal pain 55-year-old female underwent laparoscopic repair epigastric hernia 10/28. Patient says her pain was gradually improving however 2-3 days ago it became more severe again. No definite eliciting event. Pain is slightly better today. CAT scan showed postoperative changes. No evidence of hematoma or infection. Patient's labs are normal. She is afebrile. Patient tolerating liquids currently. - Review of Systems Comment: The patient denies any acute changes in vision or hearing, no dysphagia or odynophagia, no chest pain or shortness of breath, no dysuria or hematuria, no headache, no runny nose, no rectal bleeding or melena, no unexplained weight loss Past Medical History Past Medical History: COPD, Fibromyalgia, GERD/Reflux, Hyperlipidemia, Myocardial Infarction (ID), Osteoarthritis (OA), Thyroid Disorder Additional Past Medical History / Comment(s): Pt states she has had a ID but does not know when or where she was treated, generalized pain and chronic cervical and lumbar pain, bilateral carpal tunnel syndrome, bilateral lower extremity neuropathy, R hand/arm numbness running from thumb up into forearm, b orn with 2 "holes in my heart"-states one closed on its own and the other was closed with surgery. pancreatitis Sep 2020 Last Myocardial Infarction Date:: unkn History of Any Multi-Drug Resistant Organisms: None Reported Past Surgical History: Section, Cholecystectomy, Hernia Repair, Hysterectomy, Tubal Ligation Additional Past Surgical History / Comment(s): Parathyroidectomy, open heart surgery at age 6 to close a hole in heart, R eye surgery to remove benign tumors, umbilical hernia surgery x 2, colonoscopy Past Anesthesia/Blood Transfusion Reactions: Motion Sickness Additional Past Anesthesia/Blood Transfusion Reaction / Comment(s): Difficulty waking and "vitals dropped" with a previous surgery. Past Psychological History: Anxiety, Depression Smoking Status: Current every day smoker Past Alcohol Use History: None Reported, Rare Additional Past Alcohol Use History / Comment(s): started smoking at age 13, smokes 1 pack a day Past Drug Use History: None Reported - Past Family History Father History Unknown: Yes Additional Family Medical History / Comment(s): Pt is adopted. Mother Family Medical History: No Reported History Additional Family Medical History / Comment(s): Biological mother at age 33 y/o of brain aneuyrsm. Pt is adopted. Medications and Allergies Home Medications Medication Instructions Recorded Confirmed Type Levothyroxine Sodium [Synthroid] 88 mcg PO QAM 03/02/17 11/19/20 History Docusate [Colace] 100 mg PO BID #20 capsule 10/28/20 11/19/20 Rx Acetaminophen Tab [Tylenol] 650 mg PO Q6H PRN 11/19/20 11/19/20 History Allergies Allergy/AdvReac Type Severity Reaction Status Date / Time bupivacaine [From Marcaine] Allergy Swelling Verified 11/19/20 13:40 methylprednisolone Allergy Swelling Verified 11/19/20 13:40 [From Depo-Medrol] prednisolone Allergy Swelling Verified 11/19/20 13:40 duloxetine [From Cymbalta] AdvReac FATIGUE Verified 11/19/20 13:40 pregabalin [From Lyrica] AdvReac DEPRESSION Verified 11/19/20 13:40 Surgical - Exam Vital Signs Temp Pulse Resp BP Pulse Ox 98.7 F 107 H 18 156/74 97 11/19/20 11:34 11/19/20 11:34 11/19/20 11:34 11/19/20 11:34 11/19/20 11:34 Physical exam: General: Well-developed, well-nourished HEENT: Normocephalic, sclerae nonicteric Abdomen: Mild epigastric tenderness, no palpable mass or hernia, incisions clean and dry Extremities: No edema Neuro: Alert and oriented Results - Labs 11/20/20 05:47 11/20/20 05:47 Abnormal Lab Results - Last 24 Hours (Table) 11/19/20 11/19/20 11/19/20 Range/Units 12:11 12:11 12:11 Hgb 16.6 H (11.4-16.0) gm/dL Hct 47.8 H (34.0-46.0) % MCV (80.0-100.0) fL Chloride 110 H (98-107) mmol/L Carbon Dioxide (22-30) mmol/L Glucose 137 H (74-99) mg/dL Plasma Lactic Acid Mynor 2.1 H* (0.7-2.0) mmol/L AST 67 H (14-36) U/L ALT 108 H (4-34) U/L Alkaline Phosphatase 146 H (38-126) U/L Total Protein (6.3-8.2) g/dL Albumin (3.5-5.0) g/dL 11/20/20 11/20/20 Range/Units 05:47 05:47 Hgb (11.4-16.0) gm/dL Hct (34.0-46.0) % MCV 101.8 H (80.0-100.0) fL Chloride (98-107) mmol/L Carbon Dioxide 31 H (22-30) mmol/L Glucose 109 H (74-99) mg/dL Plasma Lactic Acid Mynor (0.7-2.0) mmol/L AST (14-36) U/L ALT 73 H (4-34) U/L Alkaline Phosphatase (38-126) U/L Total Protein 5.8 L (6.3-8.2) g/dL Albumin 3.4 L (3.5-5.0) g/dL Diabetes panel 11/19/20 11/20/20 Range/Units 12:11 05:47 Sodium 139 139 (137-145) mmol/L Potassium 5.1 4.0 (3.5-5.1) mmol/L Chloride 110 H 106 (98-107) mmol/L Carbon Dioxide 22 31 H (22-30) mmol/L BUN 8 11 (7-17) mg/dL Creatinine 0.54 0.66 (0.52-1.04) mg/dL Glucose 137 H 109 H (74-99) mg/dL Calcium 10.0 9.1 (8.4-10.2) mg/dL AST 67 H 28 (14-36) U/L ALT 108 H 73 H (4-34) U/L Alkaline Phosphatase 146 H 114 (38-126) U/L Total Protein 8.2 5.8 L (6.3-8.2) g/dL Albumin 4.5 3.4 L (3.5-5.0) g/dL Calcium panel 11/19/20 11/20/20 Range/Units 12:11 05:47 Calcium 10.0 9.1 (8.4-10.2) mg/dL Albumin 4.5 3.4 L (3.5-5.0) g/dL Pituitary panel 11/19/20 11/20/20 Range/Units 12:11 05:47 Sodium 139 139 (137-145) mmol/L Potassium 5.1 4.0 (3.5-5.1) mmol/L Chloride 110 H 106 (98-107) mmol/L Carbon Dioxide 22 31 H (22-30) mmol/L BUN 8 11 (7-17) mg/dL Creatinine 0.54 0.66 (0.52-1.04) mg/dL Glucose 137 H 109 H (74-99) mg/dL Calcium 10.0 9.1 (8.4-10.2) mg/dL Adrenal panel 11/19/20 11/20/20 Range/Units 12:11 05:47 Sodium 139 139 (137-145) mmol/L Potassium 5.1 4.0 (3.5-5.1) mmol/L Chloride 110 H 106 (98-107) mmol/L Carbon Dioxide 22 31 H (22-30) mmol/L BUN 8 11 (7-17) mg/dL Creatinine 0.54 0.66 (0.52-1.04) mg/dL Glucose 137 H 109 H (74-99) mg/dL Calcium 10.0 9.1 (8.4-10.2) mg/dL Total Bilirubin 1.2 0.5 (0.2-1.3) mg/dL AST 67 H 28 (14-36) U/L ALT 108 H 73 H (4-34) U/L Alkaline Phosphatase 146 H 114 (38-126) U/L Total Protein 8.2 5.8 L (6.3-8.2) g/dL Albumin 4.5 3.4 L (3.5-5.0) g/dL Assessment and Plan (1) Abdominal pain Narrative/Plan: 55-year-old female with epigastric pain. She says she feels like something may have torn. I suspect she may have had some pulling on the mesh over the last few days. No definite hernia seen on CAT scan or exam. Patient with history of pancreatitis but amylase and lipase currently normal and no significant inflammation of the pancreas seen. Will resume diet. Will consult her primary physician. Anticipate discharge later today. Current Visit: Yes Status: Acute Code(s): R10.9 - UNSPECIFIED ABDOMINAL PAIN SNOMED Code(s): 09319430
--- NOTE | 2020-11-20 12:24 | P.CONS ---
History of Present Illness - Reason for Consult Medical management of hypothyroidism and COPD - History of Present Illness This is a 55-year-old white female patient well known to me. She's been having lower quadrant abdominal pain for months. She had seen Dr. Henley and underwent laparoscopic robotic repair of incisional hernia on October. She also has been previously hospitalized for pancreatitis. Colonoscopy performed previous to her hernia repair. She reports being at home and primarily taking it easy, I placed her off work, due to her ongoing pain. She had her kids over and reports overdoing it with the visitors. This is what started her worsening pain. Her past medical history includes COPD, fiber myalgia, GERD, hyperlipidemia, hypothyroidism. She came emergency room was admitted to Dr. Paddy Perales, covering for Dr. Henley, after having worsening of this lower quadrant pain. She denied any chest pains, pressures, shortness breath, nausea or vomiting. Denied any significant diarrhea or constipation. I was consulted for evaluation for COPD and other medical issues. She reports she does continue to smoke. 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 pancreatitis Sep 2020 Last Myocardial Infarction Date:: unkn History of Any Multi-Drug Resistant Organisms: None Reported Past Surgical History: Section, Cholecystectomy, Hernia Repair, Hysterectomy, Tubal Ligation Additional Past Surgical History / Comment(s): Parathyroidectomy, open heart surgery at age 6 to close a hole in heart, R eye surgery to remove benign tumors, umbilical hernia surgery x 2, colonoscopy Past Anesthesia/Blood Transfusion Reactions: Motion Sickness Additional Past Anesthesia/Blood Transfusion Reaction / Comm: Difficulty waking and "vitals dropped" with a previous surgery. Past Psychological History: Anxiety, Depression Smoking Status: Current every day smoker Past Alcohol Use History: None Reported, Rare Additional Past Alcohol Use History / Comment(s): started smoking at age 13, smokes 1 pack a day Past Drug Use History: None Reported - Past Family History Father History Unknown: Yes Additional Family Medical History / Comment(s): Pt is adopted. Mother Family Medical History: No Reported History Additional Family Medical History / Comment(s): Biological mother at age 33 y/o of brain aneuyrsm. Pt is adopted. Medications and Allergies Home Medications Medication Instructions Recorded Confirmed Type Levothyroxine Sodium [Synthroid] 88 mcg PO QAM 03/02/17 11/19/20 History Docusate [Colace] 100 mg PO BID #20 capsule 10/28/20 11/19/20 Rx Acetaminophen Tab [Tylenol] 650 mg PO Q6H PRN 11/19/20 11/19/20 History Allergies Allergy/AdvReac Type Severity Reaction Status Date / Time bupivacaine [From Marcaine] Allergy Swelling Verified 11/19/20 13:40 methylprednisolone Allergy Swelling Verified 11/19/20 13:40 [From Depo-Medrol] prednisolone Allergy Swelling Verified 11/19/20 13:40 duloxetine [From Cymbalta] AdvReac FATIGUE Verified 11/19/20 13:40 pregabalin [From Lyrica] AdvReac DEPRESSION Verified 11/19/20 13:40 Physical Exam Vitals: Vital Signs Temp Pulse Pulse Resp BP BP Pulse Ox 11/20/20 07:59 97.9 F 84 18 140/95 93 L 11/20/20 02:40 97.9 F 84 19 139/89 96 11/19/20 19:25 98.2 F 95 20 121/87 96 11/19/20 18:10 98 16 120/87 98 11/19/20 16:16 84 18 137/85 96 11/19/20 14:49 89 16 142/76 99 Intake and Output 11/19/20 11/20/20 11/20/20 22:59 06:59 14:59 Other: Voiding Method Toilet Toilet Toilet # Voids 1 1 Weight 64.864 kg GENERAL: Obese middle-aged white female in no acute distress at this time. HEAD: Atraumatic, normocephalic. EYES: Pupils equal round and reactive to light, extraocular movements intact, sclera anicteric, conjunctiva are normal. ENT:nares patent, oropharynx clear without exudates. Moist mucous membranes. NECK: Normal range of motion, supple without lymphadenopathy or JVD, no thyromegaly LUNGS: Breath sounds coarse to auscultation with the minimal fatty rhonchi at the bases. No active wheezing at this time. HEART: Regular rate and rhythm without murmurs, rubs or gallops.S1S2 Normal ABDOMEN: Soft, mild left lower quadrant, pain normoactive bowel sounds. No guarding, no rebound. No masses appreciated. EXTREMITIES: Normal range of motion, no pitting or edema. No clubbing or cyanosis. NEUROLOGICAL: Cranial nerves II through XII grossly intact. Normal speech, no rmal gait. PSYCH: Normal mood, normal affect. SKIN: Warm, Dry, normal turgor, no rashes or lesions noted. Results CBC & Chem 7: 11/20/20 05:47 11/20/20 05:47 Labs: Abnormal Lab Results - Last 24 Hours (Table) 11/19/20 11/19/20 11/19/20 Range/Units 12:11 12:11 12:11 Hgb 16.6 H (11.4-16.0) gm/dL Hct 47.8 H (34.0-46.0) % MCV (80.0-100.0) fL Chloride 110 H (98-107) mmol/L Carbon Dioxide (22-30) mmol/L Glucose 137 H (74-99) mg/dL Plasma Lactic Acid Mynor 2.1 H* (0.7-2.0) mmol/L AST 67 H (14-36) U/L ALT 108 H (4-34) U/L Alkaline Phosphatase 146 H (38-126) U/L Total Protein (6.3-8.2) g/dL Albumin (3.5-5.0) g/dL 11/20/20 11/20/20 Range/Units 05:47 05:47 Hgb (11.4-16.0) gm/dL Hct (34.0-46.0) % MCV 101.8 H (80.0-100.0) fL Chloride (98-107) mmol/L Carbon Dioxide 31 H (22-30) mmol/L Glucose 109 H (74-99) mg/dL Plasma Lactic Acid Mynor (0.7-2.0) mmol/L AST (14-36) U/L ALT 73 H (4-34) U/L Alkaline Phosphatase (38-126) U/L Total Protein 5.8 L (6.3-8.2) g/dL Albumin 3.4 L (3.5-5.0) g/dL CT scan - abdomen: report reviewed Assessment and Plan (1) Intractable lower abdominal pain Current Visit: Yes Status: Acute Code(s): R10.30 - LOWER ABDOMINAL PAIN, UNSPECIFIED SNOMED Code(s): 09764176 (2) H/O inguinal hernia repair Current Visit: Yes Status: Acute Code(s): Z98.890 - OTHER SPECIFIED POSTPROCEDURAL STATES; Z87.19 - PERSONAL HISTORY OF OTHER DISEASES OF THE DIGESTIVE SYSTEM SNOMED Code(s): 140971330 (3) COPD (chronic obstructive pulmonary disease) Current Visit: Yes Status: Acute Code(s): J44.9 - CHRONIC OBSTRUCTIVE PULMONARY DISEASE, UNSPECIFIED SNOMED Code(s): 93918239 (4) Hypothyroidism, unspecified Current Visit: Yes Status: Acute Code(s): E03.9 - HYPOTHYROIDISM, UNSPECIFIED SNOMED Code(s): 59916104 (5) Diverticulosis Current Visit: Yes Status: Acute Code(s): K57.90 - DVRTCLOS OF INTEST, PART UNSP, W/O PERF OR ABSCESS W/O BLEED SNOMED Code(s): 078702051 (6) Gastro-esophageal reflux disease without esophagitis Current Visit: Yes Status: Acute Code(s): K21.9 - GASTRO-ESOPHAGEAL REFLUX DISEASE WITHOUT ESOPHAGITIS SNOMED Code(s): 942445283 (7) Fibromyalgia Current Visit: Yes Status: Acute Code(s): M79.7 - FIBROMYALGIA SNOMED Code(s): 123113544 Plan: I will restart her home medications. Will monitor labs. Medically, she is doing quite well and when cleared surgically, could be discharged home. We'll ask her to follow-up in the office in the next several weeks. Thank you for allowing me to participate in this patient's care.
[2020-11-20] MEDS ORDERED: LEVOTHYROXINE 88 MCG TAB PO SCH (12:30)
== END 2020-11-20 14:30 | disposition home or self-care (01) ==
LOC: EC 11:25 → 1SOBS 15:08
PROVIDERS: ADMIT Surgery; ATTEND Surgery
DX: R10.13 Epigastric pain (principal); K21.9 Gastro-esophageal reflux disease without esophagitis; J44.9 Chronic obstructive pulmonary disease, unspecified; M79.7 Fibromyalgia; E78.5 Hyperlipidemia, unspecified; I25.2 Old myocardial infarction; M19.90 Unspecified osteoarthritis, unspecified site; E07.9 Disorder of thyroid, unspecified; G89.29 Other chronic pain; M54.5 Low back pain; M54.2 Cervicalgia; G56.03 Carpal tunnel syndrome, bilateral upper limbs; G62.9 Polyneuropathy, unspecified; R20.0 Anesthesia of skin; Z87.19 Personal history of other diseases of the digestive system; Z98.891 History of uterine scar from previous surgery; Z90.49 Acquired absence of other specified parts of digestive tract; Z90.710 Acquired absence of both cervix and uterus; Z98.51 Tubal ligation status; Z98.890 Other specified postprocedural states; Z90.89 Acquired absence of other organs; F41.9 Anxiety disorder, unspecified; F32.9 Major depressive disorder, single episode, unspecified; F17.210 Nicotine dependence, cigarettes, uncomplicated; Z79.890 Hormone replacement therapy; Z79.899 Other long term (current) drug therapy; Z88.4 Allergy status to anesthetic agent; Z88.8 Allergy status to other drugs, medicaments and biological substances
CPT/HCPCS: 96375 ×2; 96376 ×3; 96361; 96374; 99285; 36415; 80053 ×2; 82150 ×2; 83605 ×2; 83690 ×2; 85025 ×2; 81003; 74177; G0378 ×2; S4990 ×2; J2405; J1170 ×3; J1885; C9113; Q9967

== ENCOUNTER 2025-02-18 13:05 | Inpatient (IN) | payer OTHER, MEDICAID ==
--- NOTE | 2025-02-18 13:56 | ED ---
Psych HPI - General Chief Complaint: Psychiatric Symptoms Stated Complaint: mental health Time Seen by Provider: 02/18/25 13:15 Source: patient, RN notes reviewed Mode of arrival: ambulatory Limitations: no limitations - History of Present Illness Initial Comments: 59-year-old female presents emergency department chief complaint of depression, suicide [place]. Patient states that she lost all of her medications along with her current place to live and other belongings. Patient states that she did use methamphetamines recently. Patient states that she plans to jump in the water to kill herself. Patient is here any is concerned about her current wellbeing. Patient was evaluated at [facility] recently and had a full workup. - Related Data Home Medications Medication Instructions Recorded Confirmed Unable To Assess [Unable to Assess] 02/19/25 02/19/25 Allergies Allergy/AdvReac Type Severity Reaction Status Date / Time bupivacaine [From Marcaine] Allergy Swelling Verified 02/19/25 09:15 methylprednisolone Allergy Swelling Verified 02/19/25 09:15 [From Depo-Medrol] prednisolone Allergy Swelling Verified 02/19/25 09:15 duloxetine [From Cymbalta] AdvReac FATIGUE Verified 02/19/25 09:15 pregabalin [From Lyrica] AdvReac DEPRESSION Verified 02/19/25 09:15 Review of Systems ROS Statement: Those systems with pertinent positive or pertinent negative responses have been documented in the HPI. ROS Other: All systems not noted in ROS Statement are negative. 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 pancreatitis Sep 2020 Last Myocardial Infarction Date:: unkn History of Any Multi-Drug Resistant Organisms: None Reported Past Surgical History: Section, Cholecystectomy, Hernia Repair, Hysterectomy, Tubal Ligation Additional Past Surgical History / Comment(s): Parathyroidectomy, open heart surgery at age 6 to close a hole in heart, R eye surgery to remove benign tumors, umbilical hernia surgery x 2, colonoscopy Past Anesthesia/Blood Transfusion Reactions: Motion Sickness Additional Past Anesthesia/Blood Transfusion Reaction / Comment(s): Difficulty waking and "vitals dropped" with a previous surgery. Past Psychological History: Anxiety, Depression Smoking Status: Current every day smoker, Vaper Past Alcohol Use History: Rare Past Drug Use History: None Reported - Past Family History Father History Unknown: Yes Additional Family Medical History / Comment(s): Pt is adopted. Mother Family Medical History: No Reported History Additional Family Medical History / Comment(s): Biological mother at age 33 y/o of brain aneuyrsm. Pt is adopted. General Exam Limitations: no limitations General appearance: alert, in no apparent distress Head exam: Present: atraumatic, normocephalic, normal inspection Eye exam: Present: normal appearance, PERRL, EOMI. Absent: scleral icterus, conjunctival injection, periorbital swelling ENT exam: Present: normal exam, normal oropharynx, mucous membranes moist Neck exam: Present: normal inspection, full ROM. Absent: tenderness, meningismus, lymphadenopathy Respiratory exam: Present: normal lung sounds bilaterally. Absent: respiratory distress, wheezes, rales, rhonchi, stridor Cardiovascular Exam: Present: regular rate, normal rhythm, normal heart sounds. Absent: systolic murmur, diastolic murmur, rubs, gallop, clicks Neurological exam: Present: alert Psychiatric exam: Present: depressed Course Vital Signs 02/18/25 02/18/25 02/18/25 13:08 13:41 15:25 Temperature 97.8 F Pulse Rate 102 H Respiratory 20 17 20 Rate Blood Pressure 148/86 O2 Sat by Pulse 98 Oximetry 02/18/25 02/18/25 18:16 20:07 Temperature 98.2 F Pulse Rate 95 Respiratory 16 18 Rate Blood Pressure 144/82 O2 Sat by Pulse 98 Oximetry Medical Decision Making - Medical Decision Making Was pt. sent in by a medical professional or institution (, PA, [employer], urgent care, hospital, or detention...) When possible be specific @ -No Did you speak to anyone other than the patient for history (EMS, parent, family, police, friend...)? What history was obtained from this source @ -No Did you review nursing and triage notes (agree or disagree)? Why? @ -I reviewed and agree with nursing and triage notes Were old charts reviewed (outside hosp., previous admission, EMS record, old EKG, old radiological studies, urgent care reports/EKG's, detention records)? Report findings @ -No old charts were reviewed Differential Diagnosis (chest pain, altered mental status, abdominal pain women, abdominal pain men, vaginal bleeding, weakness, fever, dyspnea, syncope, headache, dizziness, GI bleed, back pain, seizure, CVA, palpatations, mental health, musculoskeletal)? @ -Differential Mental Health Depression, anxiety, bipolar, psychosis, schizophrenia, borderline personality, situational depression, adjustment disorder, behavioral disorder, brain tumor, malingering, substance abuse, encephalopathy, medication reaction, dementia, hypothyroidism, degenerative neurologic disorder, lupus.... This is not meant to be all-inclusive list EKG interpreted by me (3pts min.). @ -None X-rays interpreted by me (1pt min.). @ -None done CT interpreted by me (1pt min.). @ -None done U/S interpreted by me (1pt. min.). @ -None done What testing was considered but not performed or refused? (CT, X-rays, U/S, labs)? Why? @ -None What meds were considered but not given or refused? Why? @ -None Did you discuss the management of the patient with other professionals (professionals i.e. , PA, [employer], lab, RT, psych nurse, director of social media marketing, therapeutic specialist, teacher, youth probation officer, case supervisor)? Give summary @ -[EPS evaluated patient recommended inpatient treatment Was smoking cessation discussed for >3mins.? @ -No Was critical care preformed (if so, how long)? @ -No Were there social determinants of health that impacted care today? How? (Homelessness, low income, unemployed, alcoholism, drug addiction, transportation, low edu. Level, literacy, decrease access to med. care, nursing home, rehab)? @ -No Was there de-escalation of care discussed even if they declined (Discuss DNR or withdrawal of care, Hospice)? DNR status @ -No What co-morbidities impacted this encounter? (DM, HTN, Smoking, COPD, CAD, Cancer, CVA, ARF, Chemo, Hep., AIDS, mental health diagnosis, sleep apnea, morbid obesity)? @ -None Was patient admitted / discharged? Hospital course, mention meds given and route, prescriptions, significant lab abnormalities, going to OR and other pertinent info. @ -Admit to 3 W. Undiagnosed new problem with uncertain prognosis? @ -No Drug Therapy requiring intensive monitoring for toxicity (Heparin, Nitro, Insulin, Cardizem)? @ -No Were any procedures done? @ -No Diagnosis/symptom? @ -[Depression, suicide ideation Acute, or Chronic, or Acute on Chronic? @ -Acute Uncomplicated (without systemic symptoms) or Complicated (systemic symptoms)? @ -uncomplicated Side effects of treatment? @ -No Exacerbation, Progression, or Severe Exacerbation? @ -No Poses a threat to life or bodily function? How? (Chest pain, [place], [place], pneumonia, PE, COPD, DKA, ARF, appy, cholecystitis, CVA, Diverticulitis, Homicidal, Suicidal, threat to staff... and all critical care pts) @ -Yes suicidal - Lab Data Result diagrams: 02/19/25 12:23 02/19/25 12:23 Lab Results 02/18/25 02/18/25 Range/Units 13:41 18:21 Urine Color Light Yellow Urine Appearance Clear (Clear) Urine pH 5.5 (5.0-8.0) Ur Specific [place] 1.016 (1.001-1.035) Urine Protein Negative (Negative) Ur Protein Confirm Not Reportable Urine Glucose (UA) Negative (Negative) Urine Ketones Negative (Negative) Urine Blood Negative (Negative) Urine Nitrite Negative (Negative) Urine Bilirubin Negative (Negative) Ur Bilirubin Confirm Not Reportable Urine Urobilinogen <2.0 (<2.0) mg/dL Ur Leukocyte Esterase Trace H (Negative) Urine RBC 1 (0-5) /hpf Urine WBC 8 H (0-5) /hpf Ur Squamous Epith Cells 1 (0-4) /hpf Urine Bacteria Moderate H (None) /hpf Urine Mucus Rare H (None) /hpf Urine Opiates Screen Not Detected (NotDetected) Ur Oxycodone Screen Not Detected (NotDetected) Urine Methadone Screen Not Detected (NotDetected) Ur Barbiturates Screen Not Detected (NotDetected) U Tricyclic Antidepress Not Detected (NotDetected) Ur Phencyclidine Scrn Not Detected (NotDetected) Ur Amphetamines Screen Detected H (NotDetected) U Methamphetamines Scrn Detected H (NotDetected) U Benzodiazepines Scrn Not Detected (NotDetected) Urine Cocaine Screen Detected H (NotDetected) U Marijuana (THC) Screen Detected H (NotDetected) SARS-CoV-2 (PCR) Not Detected (Not Detectd) Disposition Clinical Impression: Depression, Suicidal ideation Disposition: TRANSFER TO PSYCH HOSP/UNIT Time of Disposition: 15:38
[2025-02-18] MEDS: NICOTINE 14MG/24HR PATCH TRANSDERM STA (18:37)
[2025-02-18 18:50] LABS: Amphetamine Screen,Urine Detected (NotDetected); Barbiturate Screen,Urine Not Detected (NotDetected); Benzodiazepines Screen,Urine Not Detected (NotDetected); Cocaine Screen,Urine Detected (NotDetected); Methadone Screen, Urine Not Detected (NotDetected); Opiate Screen,Urine Not Detected (NotDetected); Oxycodone Screen, Urine Not Detected (NotDetected); Phencyclidine Screen,Urine Not Detected (NotDetected); Tricyclic Antidepressant,Urine Not Detected (NotDetected); Urn Cannabinoid Scrn Detected (NotDetected)
[2025-02-18] MEDS ORDERED: IBUPROFEN 600 MG TAB PO PRN (18:50)
[2025-02-18] MEDS ORDERED: MAG HYDROX/AL HYDROX/SIMETH 30 ML CUP PO PRN (18:50)
[2025-02-18] MEDS ORDERED: MAGNESIUM HYDROXIDE 2,400 MG/30 ML CUP PO PRN (18:50)
[2025-02-18] MEDS ORDERED: METOCLOPRAMIDE 10 MG TAB PO PRN (18:55)
[2025-02-18] MEDS ORDERED: LORazepam 2 MG/ML INJ IM PRN (18:57)
[2025-02-18] MEDS ORDERED: haloperidoL 5 MG TAB PO PRN (18:58)
[2025-02-18] MEDS ORDERED: HALOPERIDOL LACTATE 5 MG/ML 1 ML VIAL IM PRN (18:58)
[2025-02-18] MEDS ORDERED: MAG HYDROX/AL HYDROX/SIMETH 355 ML BOTTLE PO PRN (19:08)
[2025-02-18 20:50] LABS: Appearance,Urine Clear (Clear); Bacteria,Urine Moderate /hpf; Bilirubin,Urine Negative (Negative); Blood,Urine Negative (Negative); Color,Urine Light Yellow; Glucose,Urine (UA) Negative (Negative); Ketones,Urine Negative (Negative); Leukocyte Esterase,Urine Trace (Negative); Mucus,Urine Rare /hpf; Nitrite,Urine Negative (Negative); PH, Urine 5.5 (5.0-8.0); Protein,Urine Negative (Negative); RBC,Urine 1 /hpf (0-5); Specific Gravity,Urine 1.016 (1.001-1.035); Squamous Epithelial Cell,Urine 1 /hpf (0-4); Urobilinogen,Urine <2.0 mg/dL (<2.0); WBC,Urine 8 /hpf (0-5)
[2025-02-18] MEDS: LORazepam 1 MG TAB PO PRN (21:38)
[2025-02-18] MEDS: DOCUSATE 100 MG CAP PO SCH (21:38)
[2025-02-18] MEDS: FAMOTIDINE 20 MG TAB PO SCH (21:38)
[2025-02-18] MEDS: ETODOLAC 400 MG TAB PO SCH (21:39)
[2025-02-18 23:19] VITALS: RESP 16
[2025-02-19] MEDS: LEVOTHYROXINE 88 MCG TAB PO SCH (06:46)
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
[2025-02-19] MEDS: DULoxetine HCL 30 MG CAPSULE.DR PO SCH (12:41)
[2025-02-19 13:05] LABS: Basophils % (A) 1 %; Eosinophils # (A) 0.3 k/uL (0-0.7); Eosinophils % (A) 6 %; HCT 41.6 % (34.0-46.0); HGB 13.3 gm/dL (11.4-16.0); Hypochromasia Slight; Lymphocytes # (A) 1.5 k/uL (1.0-4.8); Lymphocytes % (A) 28 %; MCH 28.9 pg (25.0-35.0); MCV 90.4 fL (80.0-100.0); Mean Platelet Volume 7.8; Monocytes # (A) 0.2 k/uL (0-1.0); Monocytes % (A) 4 %; Neutrophils # (A) 3.1 k/uL (1.3-7.7); Neutrophils % (A) 59 %; Platelet Count 247 k/uL (150-450); RDW 14.8 % (11.5-15.5); WBC 5.2 k/uL (3.8-10.6)
[2025-02-19 13:25] LABS: ALT 19 U/L (4-34); AST 20 U/L (14-36); African American GFR (CKD) >90 (>60 ml/min/1.73 sqM); Albumin 3.1 g/dL (3.5-5.0); Alkaline Phosphatase 130 U/L (38-126); Anion Gap 5 mmol/L; Blood Urea Nitrogen 7 mg/dL (7-17); Calcium 9.4 mg/dL (8.4-10.2); Carbon Dioxide 31 mmol/L (22-30); Chloride 103 mmol/L (98-107); Glucose 80 mg/dL (74-99); Non-African American GFR(CKD) >90 (>60 ml/min/1.73 sqM); Sodium 139 mmol/L (137-145); Total Bilirubin 0.6 mg/dL (0.2-1.3); Total Protein 5.7 g/dL (6.3-8.2)
[2025-02-19 16:12] VITALS: BMI 28.0
[2025-02-19] MEDS: VENLAFAXINE HCL ER 75 MG CAP PO SCH (16:20)
[2025-02-19 18:27] LABS: Chol/HDL Ratio 4.55 Ratio
[2025-02-19 18:28] LABS: LDL Cholesterol,Calculated 90.6 mg/dL (0.0-131.0)
[2025-02-19] MEDS: MELATONIN 5 MG TABLET PO SCH (20:54)
[2025-02-19] MEDS: traZODone HCL 50 MG TAB PO SCH (20:54)
[2025-02-20] MEDS ORDERED: DEXTROSE 50% SYRINGE 50 ML IVP PRN ×2 (01:31)
--- NOTE | 2025-02-20 01:31 | P.MDCNMH ---
History of Present Illness H&P Date: 02/20/25 59-year-old female with hypertension hypothyroid Patient coming into the hospital for evaluation of wellbeing due to depression and suicidal ideation Patient currently denies any hallucinations or suicidal ideation she denies any medical concerns except for diffuse pain due to history of fibromyalgia Patient also reports fullness in in the submandibular region under the chin this been going on for few weeks denies any associated difficulty swallowing or breathing denies any trauma or injuries denies any fevers chills nausea vomiting or dental pain Patient admits to vaping denies any drug abuse or heavy alcohol review of systems Pertinent positives as noted in HPI. All other systems were reviewed and are negative on exam Constitutional: No acute distress, conversant, pleasant Eyes: Anicteric sclerae, moist conjunctiva, Pupils equal round reactive to light ENMT: NC/AT Oropharynx clear, no erythema, or exudates Neck: Submental fat fullness with possibly palpable small nodule nontender, skin unremarkable no warmth no bruising no erythema no open wounds Lungs: Clear to auscultation Clear to percussion Normal respiratory effort, no accessory muscle use Cardiovascular: Heart regular in rate and rhythm, No murmurs, gallops, or rubs No peripheral edema Abdominal: Soft Nontender, no guarding, rebound or rigidity Abdomen moving with respiration Normoactive bowel sounds Extremities: No digital cyanosis No clubbing Pedal pulses intact and symmetrical Radial pulses intact and symmetrical No calf tenderness Psychiatric: Alert and oriented to person, place and time Neuro Muscles Strength 5/5 in all 4 extremities Sensation to light touch grossly present throughout Cranial nerves II-XII grossly intact Past Medical History Past Medical History: COPD, Fibromyalgia, GERD/Reflux, Hyperlipidemia, Myocardial Infarction (ID), Osteoarthritis (OA), Thyroid Disorder Additional Past Medical History / Comment(s): Pt states she has had a ID but does not know when or where she was treated, generalized pain and chronic cervical and lumbar pain, bilateral carpal tunnel syndrome, bilateral lower extremity neuropathy, R hand/arm numbness running from thumb up into forearm, 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 pancreatitis Sep 2020 Last Myocardial Infarction Date:: unkn History of Any Multi-Drug Resistant Organisms: None Reported Past Surgical History: Section, Cholecystectomy, Hernia Repair, Hysterectomy, Tubal Ligation Additional Past Surgical History / Comment(s): Parathyroidectomy, open heart surgery at age 6 to close a hole in heart, R eye surgery to remove benign tumors, umbilical hernia surgery x 2, colonoscopy Past Anesthesia/Blood Transfusion Reactions: Motion Sickness Additional Past Anesthesia/Blood Transfusion Reaction / Comment(s): Difficulty waking and "vitals dropped" with a previous surgery. Past Psychological History: Anxiety, Depression Additional Psychological History / Comment(s): . Smoking Status: Current every day smoker, Vaper Past Alcohol Use History: Rare Additional Past Alcohol Use History / Comment(s): started smoking at age 13, smokes 1 pack a day Past Drug Use History: None Reported Additional Drug Use History / Comment(s): Pt states she did "one line of meth" and lost 2 whole days so she believes it was something different - Past Family History Father History Unknown: Yes Additional Family Medical History / Comment(s): Pt is adopted. Mother Family Medical History: No Reported History Additional Family Medical History / Comment(s): Biological mother at age 33 y/o of brain aneuyrsm. Pt is adopted. Medications and Allergies Home Medications Medication Instructions Recorded Confirmed Type Unable To Assess [Unable to Assess] 02/19/25 02/19/25 History Allergies Allergy/AdvReac Type Severity Reaction Status Date / Time bupivacaine [From Marcaine] Allergy Swelling Verified 02/19/25 09:15 methylprednisolone Allergy Swelling Verified 02/19/25 09:15 [From Depo-Medrol] prednisolone Allergy Swelling Verified 02/19/25 09:15 duloxetine [From Cymbalta] AdvReac FATIGUE Verified 02/19/25 09:15 pregabalin [From Lyrica] AdvReac DEPRESSION Verified 02/19/25 09:15 Physical Exam Vitals: Vital Signs Temp Pulse Resp BP Pulse Ox 02/19/25 23:39 97.6 F 59 L 16 152/92 98 02/19/25 09:00 97.8 F 101 H 16 154/99 97 Intake and Output 02/19/25 02/19/25 02/20/25 14:59 22:59 06:59 Other: Weight 58.831 kg Cranial Nerve Examination - Cranial Nerves Cranial Nerve II- Optic: Intact Cranial Nerve III- Oculomotor: Intact Cranial Nerve IV- Trochlear: Intact Cranial Nerve V- Trigeminal: Intact Cranial Nerve - Abducens: Intact Cranial Nerve VII- Facial: Intact Cranial Nerve VIII- Auditory: Intact Cranial Nerve IX- Glossopharyngeal: Intact Cranial Nerve X- Vagus: Intact Cranial Nerve XI- Accessory: Intact Cranial Nerve XII- Hypoglossal: Intact Results CBC & Chem 7: 02/19/25 12:23 02/19/25 12:23 Labs: Abnormal Lab Results - Last 24 Hours (Table) 02/19/25 02/19/25 Range/Units 12:23 12:23 Carbon Dioxide 31 H (22-30) mmol/L Hemoglobin A1c 6.4 H (<=6.0) % Alkaline Phosphatase 130 H (38-126) U/L Total Protein 5.7 L (6.3-8.2) g/dL Albumin 3.1 L (3.5-5.0) g/dL Triglycerides 218.00 H (0.00-149.00) mg/dL VLDL Cholesterol, Calc 43.60 H (5.00-40.00) mg/dL HDL Cholesterol 37.80 L (40.00-60.00) mg/dL Assessment and Plan Assessment: Depression and suicidal ideation Management per psych Hypothyroid Resume levothyroxine Hypertension Start patient on amlodipine 5 mg p.o. daily Prediabetes A1c 6.4 Start patient on insulin sliding scale Blood work overall unremarkable white count 5.2 hemoglobin 13.3 Renal function unremarkable sodium 139 potassium 4 BUN 7 creatinine 0.6 Polysubstance abuse Urine drug screen positive for cocaine marijuana amphetamine Patient overall stable from medical standpoint Thank you for this consultation
[2025-02-20 07:53] LABS: Glucose,Whole Blood 93 mg/dL (70-110)
[2025-02-20] MEDS: INSULIN LISPRO (HumaLOG) 100 UNIT/ML 10 mL VL SQ SCH (08:00)
[2025-02-20] MEDS: GABAPENTIN 300 MG CAP PO SCH (08:40)
[2025-02-20] MEDS: amLODIPine 5 MG TAB PO SCH (08:40)
--- NOTE | 2025-02-20 12:07 | P.PN ---
Progress Note - Text Progress Note Date: 02/20/25 Interval History: Patient was seen in bed and was directable and agreeable to speak with life insurance underwriter in the room. Patient reports sleeping really well, reporting a decrease in her anxiety today. She states because she has been sleeping more, her suicidal ideations are less however they are still there with plan. She states appetite is good. She continues to worry about where she will go upon discharge however was given a number to call for domestic violence jail yesterday from social work. At this time patient denies any homicidal ideations, intent or plan. Patient denies any auditory, visual hallucinations and denies any paranoia or delusions. Patient denies any side effects from the medications and has been compliant with meds. Mental Status Exam: General Appearance: Patient appears to be older than stated age is fatigued but directable, and cooperative. Behavior: Patient is calmly laying without any agitated behavior. Speech: Patient's speech is fluent and nonpressured. Mood/Affect: Mood is improving mildly, affect is congruent and constricted. Suicidality/Homicidality: Patient denies having any homicidal ideation intent or plan. She continues to report suicidal ideations with a plan however less intense than yesterday Perceptions: Patient denies any visual hallucinations and denies any auditory hallucinations Though content/process: There is no evidence of any delusional thought content and thought process is linear and goal-directed. Memory and concentration: AOX3, grossly intact for the purposes of this session Judgment and insight: Improving mildly Assessment Major depressive disorder, recurrent, moderate Generalized anxiety disorder Nicotine dependence Methamphetamine abuse Rule out mild cognitive impairment Plan: -Patient continues to meet criteria for inpatient psychiatric admission for symptom stabilization and safety. Patient has signed adult voluntary form and medication consent and was placed in patient's chart. -Medications: Continue Effexor XR 75 mg daily for depression/anxiety, trazodone 50 mg at bedtime for insomnia, melatonin 10 mg at bedtime for insomnia -When necessary Ativan and Haldol for agitation/aggression. -Labs: Reviewed -NRT -nicotine patch -SW on board for discharge planning. Encouraged the patient to participate in milieu.
[2025-02-20 12:43] LABS: Glucose,Whole Blood 80 mg/dL (70-110)
[2025-02-20 18:27] LABS: Glucose,Whole Blood 111 mg/dL (70-110)
[2025-02-20 20:14] LABS: Glucose,Whole Blood 116 mg/dL (70-110)
[2025-02-21 08:13] LABS: Glucose,Whole Blood 82 mg/dL (70-110)
--- NOTE | 2025-02-21 11:47 | P.PN ---
Progress Note - Text Progress Note Date: 02/21/25 Interval History: Patient was seen laying in bed and was directable and agreeable to speak with grant writer in the room. Patient is usually seen isolative to room, not attending groups or her ADLs however this was encouraged today. She reports some sleep difficulties overnight, reporting pain today. She states her daughter was bonded out of intermediate and she was able to speak to her and that she is doing better now that she is sober from drugs. She is hopeful to stay with her daughter upon discharge. She mentions because her daughter is out her suicidal thoughts are less intense, stating that she would not act on these thoughts because of her daughter. At this time patient denies any homicidal ideations, intent or plan. Patient denies any auditory, visual hallucinations and denies any paranoia or delusions. Patient denies any side effects from the medications and has been compliant with meds. Mental Status Exam: General Appearance: Patient appears to be older than stated age is alert, directable, and cooperative. Behavior: Patient is calmly laying without any agitated behavior. Speech: Patient's speech is fluent and nonpressured. Mood/Affect: Mood is improving mildly, affect is congruent and constricted. Suicidality/Homicidality: Patient denies having any homicidal ideation intent or plan. Patient reports suicidal ideations, lessening in intensity Perceptions: Patient denies any visual hallucinations and denies any auditory hallucinations Though content/process: There is no evidence of any delusional thought content and thought process is linear and goal-directed. Memory and concentration: AOX3, grossly intact for the purposes of this session Judgment and insight: Improving mildly Assessment Major depressive disorder, recurrent, moderate Generalized anxiety disorder Nicotine dependence Methamphetamine abuse Rule out mild cognitive impairment Plan: -Patient continues to meet criteria for inpatient psychiatric admission for symptom stabilization and safety. Patient has signed adult voluntary form and medication consent and was placed in patient's chart. -Medications: Increase trazodone to 100 mg at bedtime tonight for insomnia, increase Effexor XR to 112.5 mg daily tomorrow for depression/anxiety, continue melatonin 10 mg at bedtime for insomnia -When necessary Ativan and Haldol for agitation/aggression. -Labs: Reviewed -NRT - nicotine patch -SW on board for discharge planning. Encouraged the patient to participate in milieu. Patient not agreeable with rehab thus she will be discharged to either half-way or home with daughter early-mid next week pending stabilization in suicidal thoughts
[2025-02-21 12:52] LABS: Glucose,Whole Blood 125 mg/dL (70-110)
[2025-02-21 17:54] LABS: Glucose,Whole Blood 111 mg/dL (70-110)
[2025-02-21] MEDS: traZODone HCL 100 MG TAB PO SCH (20:21)
[2025-02-21 20:43] LABS: Glucose,Whole Blood 127 mg/dL (70-110)
[2025-02-22 07:59] LABS: Glucose,Whole Blood 115 mg/dL (70-110)
[2025-02-22] MEDS: VENLAFAXINE HCL ER 37.5 MG CAP PO SCH (09:12)
--- NOTE | 2025-02-22 12:31 | P.PN ---
Progress Note - Text Progress Note Date: 02/22/25 Interval history: Patient was seen laying in her bed today and was directable and agreeable to speak with justowriter operator. Patient states that she is still feeling fairly depressed anxious, claims that she is improving a bit since yesterday. Wants to remain on the same dose of medications at this time. Claims that she has been feeling a bit more optimistic today, claims that she had trouble maintaining sleep last night. Has been trying to go to some groups, showering eating well. Did not offer any other complaints at this time besides physical pain. At this time patient denies any suicidal or homicidal ideations intent or plan. Denies any Auditory or visual hallucinations. Patient denies any side effects from the medications and has been compliant with meds. Mental status exam: General Appearance: Patient appears to be elderly, uses a walker, stated age is alert, directable, and cooperative. Long hair Behavior: No agitated behavior. Patient is calm and directable, attempts to cooperate Speech: Patient's speech is fluent and nonpressured. Fairly monotone Mood/Affect: Mood is improving mildly, affect is congruent and constricted. Suicidality/Homicidality: Patient denies having any suicidal or homicidal ideation intent or plan. Perceptions: Patient denies any auditory or visual hallucinations. Though content/process: There is no evidence of any delusional thought content and thought process is linear and goal-directed. Focused on her problems Memory and concentration: AOX3, grossly intact for the purposes of this session Judgment and insight: improving mildly Assessment/Plan: Continue with current diagnosis. Patient continues to meet criteria for inpatient psychiatric admission for symptom stabilization and safety. Patient will be maintained on current psychotropic medication regimen, will likely increase Effexor tomorrow if patient requires this. Monitor for medication compliance and for any psychotropic medication side effects. Will continue to monitor ongoing response to treatment. Encouraged participation in milieu.
[2025-02-22 13:02] LABS: Glucose,Whole Blood 91 mg/dL (70-110)
[2025-02-22 17:52] LABS: Glucose,Whole Blood 133 mg/dL (70-110)
[2025-02-22 20:02] LABS: Glucose,Whole Blood 184 mg/dL (70-110)
[2025-02-23 07:52] LABS: Glucose,Whole Blood 121 mg/dL (70-110)
[2025-02-23] MEDS: NICOTINE 14MG/24HR PATCH TRANSDERM SCH (08:56)
--- NOTE | 2025-02-23 11:03 | P.PN ---
Progress Note - Text Progress Note Date: 02/23/25 Interval history: Patient was seen laying in her bed today and was directable and agreeable to speak with feature writer. Patient appears to have mild improvement in her affect today. Denies any depression or anxiety today. Was fairly concrete, not reporting any overnight concerns. Has been trying to go to some groups, showering eating well. Did not offer any other complaints at this time besides physical pain. At this time patient denies any suicidal or homicidal ideations intent or plan. Denies any Auditory or visual hallucinations. Patient denies any side effects from the medications and has been compliant with meds. Mental status exam: General Appearance: Patient appears to be elderly, uses a walker, stated age is alert, directable, and cooperative. Long hair Behavior: No agitated behavior. Patient is calm and directable, attempts to cooperate, improving mild Speech: Patient's speech is fluent and nonpressured. Fairly monotone, improving mildly Mood/Affect: Mood is improving mildly, affect is congruent and constricted. Suicidality/Homicidality: Patient denies having any suicidal or homicidal ideation intent or plan. Perceptions: Patient denies any auditory or visual hallucinations. Though content/process: There is no evidence of any delusional thought content and thought process is linear and goal-directed. Memory and concentration: AOX3, grossly intact for the purposes of this session Judgment and insight: improving mildly Assessment/Plan: Continue with current diagnosis. Patient continues to meet criteria for inpatient psychiatric admission for symptom stabilization and safety. Patient will be maintained on current psychotropic medication regimen, Monitor for medication compliance and for any psychotropic medication side effects. Will continue to monitor ongoing response to treatment. Encouraged participation in milieu.
[2025-02-23 12:34] LABS: Glucose,Whole Blood 131 mg/dL (70-110)
[2025-02-23] MEDS: ACETAMINOPHEN TAB 325 MG TAB PO PRN (12:52)
[2025-02-23 17:43] LABS: Glucose,Whole Blood 105 mg/dL (70-110)
[2025-02-23 20:06] LABS: Glucose,Whole Blood 180 mg/dL (70-110)
[2025-02-24 07:59] LABS: Glucose,Whole Blood 100 mg/dL (70-110)
[2025-02-24 12:53] LABS: Glucose,Whole Blood 108 mg/dL (70-110)
--- NOTE | 2025-02-24 13:02 | P.PN ---
Progress Note - Text Progress Note Date: 02/24/25 Interval History: Patient was seen wandering the hallways and was directable and agreeable to sp jhon with underwriter solicitation director in the office. Patient notably appears more bright in affect, seen ambulating the halls attending goalsetting groups. She states her roommate has been helpful with motivating her. Her daughter visited over the weekend. She is reporting pain that is more chronic in nature, sleeping more. She was encouraged to contact shelters as discharge is planned for tomorrow. At this time patient denies any suicidal or homicidal ideations, intent or plan. Patient denies any auditory, visual hallucinations and denies any paranoia or delusions. Patient denies any side effects from the medications and has been compliant with meds. Mental Status Exam: General Appearance: Patient appears to be older than stated age is alert, directable, and cooperative. Behavior: Patient is calmly seated without any agitated behavior. Speech: Patient's speech is fluent and nonpressured. Mood/Affect: Mood is improving mildly, affect is congruent and constricted. Suicidality/Homicidality: Patient denies having any suicidal or homicidal ideation intent or plan. Perceptions: Patient denies any visual hallucinations and denies any auditory hallucinations Though content/process: There is no evidence of any delusional thought content and thought process is linear and goal-directed. Memory and concentration: AOX3, grossly intact for the purposes of this session Judgment and insight: Improving mildly Assessment Major depressive disorder, recurrent, moderate Generalized anxiety disorder Nicotine dependence Methamphetamine abuse Rule out mild cognitive impairment Plan: -Patient continues to meet criteria for inpatient psychiatric admission for symptom stabilization and safety. Patient has signed adult voluntary form and medication consent and was placed in patient's chart. -Medications: Continue trazodone 100 mg at bedtime for insomnia, Effexor XR 112.5 mg daily for depression/anxiety, melatonin 10 mg at bedtime for insomnia -When necessary Ativan and Haldol for agitation/aggression. -Labs: Reviewed -NRT - nicotine patch -SW on board for discharge planning. Encouraged the patient to participate in milieu. Anticipate discharge tomorrow to jail
[2025-02-24 17:50] LABS: Glucose,Whole Blood 187 mg/dL (70-110)
[2025-02-24 20:03] LABS: Glucose,Whole Blood 175 mg/dL (70-110)
[2025-02-25 08:00] LABS: Glucose,Whole Blood 101 mg/dL (70-110)
[2025-02-25 11:12] VITALS: BP 125/81; PULSE 95; TEMP 98.2
[2025-02-25 12:48] LABS: Glucose,Whole Blood 92 mg/dL (70-110)
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
== END 2025-02-25 15:48 | disposition home or self-care (01) | DRG 885 ==
LOC: EC 13:05 → 3MHU 18:36
PROVIDERS: ADMIT Psychiatry & Neurology Psychiatry; ATTEND Psychiatry & Neurology Psychiatry
DX: F33.1 Major depressive disorder, recurrent, moderate (principal); R45.851 Suicidal ideations; J44.9 Chronic obstructive pulmonary disease, unspecified; E03.9 Hypothyroidism, unspecified; I10 Essential (primary) hypertension; Z59.00 Homelessness unspecified; M79.7 Fibromyalgia; E78.5 Hyperlipidemia, unspecified; F17.290 Nicotine dependence, other tobacco product, uncomplicated; F41.1 Generalized anxiety disorder; G47.00 Insomnia, unspecified; G89.29 Other chronic pain; R73.03 Prediabetes; K21.9 Gastro-esophageal reflux disease without esophagitis; I25.2 Old myocardial infarction; Z56.0 Unemployment, unspecified; Z91.414 Personal history of adult intimate partner abuse; Z91.51 Personal history of suicidal behavior; Z63.4 Disappearance and death of family member; Z87.74 Personal history of (corrected) congenital malformations of heart and circulatory system; Z88.4 Allergy status to anesthetic agent; Z88.8 Allergy status to other drugs, medicaments and biological substances
CPT/HCPCS: 80053; 80061; 80306; 81001; 82075; 83036; 84443; 85025; 87635; 99285

== ENCOUNTER 2025-04-29 18:48 | Emergency (ER) | payer OTHER ==
[2025-04-29 18:59] VITALS: RESP 18
--- NOTE | 2025-04-29 19:37 | ED ---
General Adult HPI - General Chief complaint: Psychiatric Symptoms Stated complaint: Mental health eval Time Seen by Provider: 04/29/25 19:14 Source: patient, RN notes reviewed, old records reviewed Mode of arrival: ambulatory Limitations: no limitations - History of Present Illness Initial comments: 60-year-old female presenting for psychiatric evaluation. Patient admits to being off of her medications. She is depressed. She has had suicidal thoughts and has cut her right wrist. Patient is tearful at the time my evaluation. States that she wants to be with her children 2 of which would have . - Related Data Previous Rx's Medication Instructions Recorded Docusate [Colace] 100 mg PO BID 30 Days #60 cap 02/25/25 Etodolac [Lodine] 400 mg PO TID 30 Days #90 tab 02/25/25 Famotidine [Pepcid] 20 mg PO BID 30 Days #60 tab 02/25/25 Gabapentin [Neurontin] 300 mg PO BID 30 Days #60 cap 02/25/25 Levothyroxine Sodium [Synthroid] 88 mcg PO DAILY@0630 30 Days #30 02/25/25 tab Melatonin 10 mg PO HS 30 Days #60 tab 02/25/25 Nicotine 14Mg/24Hr Patch [Habitrol] 1 patch TRANSDERM DAILY 30 Days 02/25/25 #30 patch Venlafaxine HCl ER [Effexor XR] 37.5 mg PO DAILY 30 Days #30 cap 02/25/25 Venlafaxine HCl ER [Effexor XR] 75 mg PO DAILY 30 Days #30 cap 02/25/25 amLODIPine [Norvasc] 5 mg PO DAILY 30 Days #30 tab 02/25/25 traZODone HCL [Desyrel] 100 mg PO HS 30 Days #30 tab 02/25/25 Allergies Allergy/AdvReac Type Severity Reaction Status Date / Time bupivacaine [From Marcaine] Allergy Swelling Verified 04/29/25 19:00 methylprednisolone Allergy Swelling Verified 04/29/25 19:00 [From Depo-Medrol] prednisolone Allergy Swelling Verified 04/29/25 19:00 duloxetine [From Cymbalta] AdvReac FATIGUE Verified 04/29/25 19:00 pregabalin [From Lyrica] AdvReac DEPRESSION Verified 04/29/25 19:00 Review of Systems ROS Statement: Those systems with pertinent positive or pertinent negative responses have been documented in the HPI. ROS Other: All systems not noted in ROS Statement are negative. 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 pancreatitis Sep 2020 Last Myocardial Infarction Date:: unkn History of Any Multi-Drug Resistant Organisms: None Reported Past Surgical History: Section, Cholecystectomy, Hernia Repair, Hysterectomy, Tubal Ligation Additional Past Surgical History / Comment(s): Parathyroidectomy, open heart surgery at age 6 to close a hole in heart, R eye surgery to remove benign tumors, umbilical hernia surgery x 2, colonoscopy Past Anesthesia/Blood Transfusion Reactions: Motion Sickness Additional Past Anesthesia/Blood Transfusion Reaction / Comment(s): Difficulty waking and "vitals dropped" with a previous surgery. Past Psychological History: Anxiety, Depression Smoking Status: Current every day smoker, Vaper Past Alcohol Use History: Rare Past Drug Use History: None Reported - Past Family History Father History Unknown: Yes Additional Family Medical History / Comment(s): Pt is adopted. Mother Family Medical History: No Reported History Additional Family Medical History / Comment(s): Biological mother at age 33 y/o of brain aneuyrsm. Pt is adopted. General Exam Limitations: no limitations General appearance: alert, anxious Head exam: Present: atraumatic, normocephalic Eye exam: Present: normal appearance, PERRL Respiratory exam: Present: normal lung sounds bilaterally. Absent: respiratory distress, wheezes Cardiovascular Exam: Present: normal rhythm, tachycardia GI/Abdominal exam: Present: soft. Absent: distended, tenderness Extremities exam: Present: normal inspection, normal capillary refill, other (S uperficial abrasion to the right wrist) Psychiatric exam: Present: depressed, anxious, suicidal ideation Skin exam: Present: warm, dry Course Vital Signs 04/29/25 04/30/25 04/30/25 18:56 08:27 12:03 Temperature 97.9 F 98.3 F Pulse Rate 116 H 81 96 Respiratory 18 18 18 Rate Blood Pressure 193/109 147/81 158/86 O2 Sat by Pulse 97 96 98 Oximetry Medical Decision Making - Medical Decision Making Was pt. sent in by a medical professional or institution ([facility], [employer], urgent care, hospital, or senior living...) When possible be specific @ -No Did you speak to anyone other than the patient for history (EMS, parent, family, police, friend...)? What history was obtained from this source @ -No Did you review nursing and triage notes (agree or disagree)? Why? @ -I reviewed and agree with nursing and triage notes Were old charts reviewed (outside hosp., previous admission, EMS record, old EKG, old radiological studies, urgent care reports/EKG's, senior living records)? Report findings @ -No old charts were reviewed Differential Mental Health Depression, anxiety, bipolar, psychosis, schizophrenia, borderline personality, situational depression, adjustment disorder, behavioral disorder, brain tumor, malingering, substance abuse, encephalopathy, medication reaction, dementia, hypothyroidism, degenerative neurologic disorder, lupus.... This is not meant to be all-inclusive list EKG interpreted by me (3pts min.). @ -As above X-rays interpreted by me (1pt min.). @ -None done CT interpreted by me (1pt min.). @ -None done U/S interpreted by me (1pt. min.). @ -None done What testing was considered but not performed or refused? (CT, X-rays, U/S, labs)? Why? @ -None What meds were considered but not given or refused? Why? @ -None Did you discuss the management of the patient with other professionals (jony mcrae i.e. [facility], [employer], lab, RT, psych nurse, social contact worker, pump tester, teacher, flight deck officer, therapeutic case manager)? Give summary @ -No Was smoking cessation discussed for >3mins.? @ -No Was critical care preformed (if so, how long)? @ -No Were there social determinants of health that impacted care today? How? (Homelessness, low income, unemployed, alcoholism, drug addiction, transportation, low edu. Level, literacy, decrease access to med. care, residential, rehab)? @ -No Was there de-escalation of care discussed even if they declined (Discuss DNR or withdrawal of care, Hospice)? DNR status @ -No What co-morbidities impacted this encounter? (DM, HTN, Smoking, COPD, CAD, Cancer, CVA, ARF, Chemo, Hep., AIDS, mental health diagnosis, sleep apnea, morbid obesity)? @ -Depression Was patient admitted / discharged? Hospital course, mention meds given and route, prescriptions, significant lab abnormalities, going to OR and other pertinent info. @60-year-old female presenting with depression, suicidal ideation, suicidal attempt. Patient medically cleared, awaiting EPS evaluation. Undiagnosed new problem with uncertain prognosis? @ -No Drug Therapy requiring intensive monitoring for toxicity (Heparin, Nitro, Insulin, Cardizem)? @ -No Were any procedures done? @ -No Diagnosis/symptom? @ -Default Acute, or Chronic, or Acute on Chronic? @ -Default Uncomplicated (without systemic symptoms) or Complicated (systemic symptoms)? @ -Default Side effects of treatment? @ -No Exacerbation, Progression, or Severe Exacerbation? @ -No Poses a threat to life or bodily function? How? (Chest pain, USA, TN, pneumonia, PE, COPD, DKA, ARF, appy, cholecystitis, CVA, Diverticulitis, Homicidal, Suic idal, threat to staff... and all critical care pts) @ -No - Lab Data Result diagrams: 04/29/25 22:08 04/29/25 22:08 Lab Results 04/29/25 04/29/25 04/29/25 Range/Units 19:22 19:22 19:35 WBC (4.50-10.00) 10*3/uL RBC (4.10-5.20) 10*6/uL Hgb (12.0-15.0) g/dL Hct (37.2-46.3) % MCV (80.0-97.0) fL MCH (27.0-32.0) pg MCHC (32.0-37.0) g/dL Plt Count (140-440) 10*3/uL MPV (9.5-12.2) fL Immature Gran % (Auto) % Neutrophils % % Lymphocytes % % Monocytes % % Eosinophils % % Basophils % % Immature Gran # (0.00-0.04) 10*3/uL Neutrophils # (1.80-7.70) 10*3/uL Lymphocytes # (0.90-5.00) 10*3/uL Monocytes # (0.20-1.00) 10*3/uL Eosinophils # (0.04-0.35) 10*3/uL Basophils # (0.00-0.10) 10*3/uL Sodium (137-145) mmol/L Potassium (3.5-5.1) mmol/L Chloride (98-107) mmol/L Carbon Dioxide (22-30) mmol/L Anion Gap mmol/L BUN (7-17) mg/dL Creatinine (0.52-1.04) mg/dL Est GFR (CKD-EPI)AfAm (>60 ml/min/1.73 sqM) Est GFR (CKD-EPI)NonAf (>60 ml/min/1.73 sqM) Glucose (74-99) mg/dL POC Glucose (mg/dL) (70-110) mg/dL POC Glu Warp Drawer ID Calcium (8.4-10.2) mg/dL Total Bilirubin (0.2-1.3) mg/dL AST (14-36) U/L ALT (4-34) U/L Alkaline Phosphatase (38-126) U/L Total Protein (6.3-8.2) g/dL Albumin (3.5-5.0) g/dL Urine Color Yellow Urine Appearance Cloudy H (Clear) Urine pH 5.5 (5.0-8.0) Ur Specific [place] 1.027 (1.001-1.035) Urine Protein Trace H (Negative) Urine Glucose (UA) Negative (Negative) Urine Ketones Negative (Negative) Urine Blood Negative (Negative) Urine Nitrite Negative (Negative) Urine Bilirubin Negative (Negative) Urine Urobilinogen 2.0 (<2.0) mg/dL Ur Leukocyte Esterase Moderate H (Negative) Urine RBC 2 (0-5) /hpf Urine WBC 20 H (0-5) /hpf Ur Squamous Epith Cells 9 H (0-4) /hpf Hyaline Casts 1 (0-2) /lpf Urine Mucus Rare H (None) /hpf Urine Opiates Screen Not Detected (NotDetected) Ur Oxycodone Screen Not Detected (NotDetected) Urine Methadone Screen Not Detected (NotDetected) Ur Barbiturates Screen Not Detected (NotDetected) U Tricyclic Antidepress Not Detected (NotDetected) Ur Phencyclidine Scrn Not Detected (NotDetected) Ur Amphetamines Screen Not Detected (NotDetected) U Methamphetamines Scrn Not Detected (NotDetected) U Benzodiazepines Scrn Not Detected (NotDetected) Urine Cocaine Screen Not Detected (NotDetected) U Marijuana (THC) Screen Not Detected (NotDetected) SARS-CoV-2 (PCR) Not Detected (Not Detectd) 04/29/25 04/29/25 04/30/25 Range/Units 22:08 22:08 08:29 WBC 10.16 H (4.50-10.00) 10*3/uL RBC 4.76 (4.10-5.20) 10*6/uL Hgb 14.5 (12.0-15.0) g/dL Hct 43.3 (37.2-46.3) % MCV 91.0 (80.0-97.0) fL MCH 30.5 (27.0-32.0) pg MCHC 33.5 (32.0-37.0) g/dL Plt Count 291 (140-440) 10*3/uL MPV 10.4 (9.5-12.2) fL Immature Gran % (Auto) 0.2 % Neutrophils % 65.8 % Lymphocytes % 21.7 % Monocytes % 7.4 % Eosinophils % 3.9 % Basophils % 1.0 % Immature Gran # 0.02 (0.00-0.04) 10*3/uL Neutrophils # 6.69 (1.80-7.70) 10*3/uL Lymphocytes # 2.20 (0.90-5.00) 10*3/uL Monocytes # 0.75 (0.20-1.00) 10*3/uL Eosinophils # 0.40 H (0.04-0.35) 10*3/uL Basophils # 0.10 (0.00-0.10) 10*3/uL Sodium 138 (137-145) mmol/L Potassium 3.8 (3.5-5.1) mmol/L Chloride 102 (98-107) mmol/L Carbon Dioxide 23 (22-30) mmol/L Anion Gap 13 mmol/L BUN 12 (7-17) mg/dL Creatinine 0.51 L (0.52-1.04) mg/dL Est GFR (CKD-EPI)AfAm >90 (>60 ml/min/1.73 sqM) Est GFR (CKD-EPI)NonAf >90 (>60 ml/min/1.73 sqM) Glucose 223 H (74-99) mg/dL POC Glucose (mg/dL) 170 H (70-110) mg/dL POC Glu Warp Drawer ID Venkata Lambert Calcium 9.7 (8.4-10.2) mg/dL Total Bilirubin 0.6 (0.2-1.3) mg/dL AST 42 H (14-36) U/L ALT 32 (4-34) U/L Alkaline Phosphatase 172 H (38-126) U/L Total Protein 7.0 (6.3-8.2) g/dL Albumin 4.1 (3.5-5.0) g/dL Urine Color Urine Appearance (Clear) Urine pH (5.0-8.0) Ur Specific [place] (1.001-1.035) Urine Protein (Negative) Urine Glucose (UA) (Negative) Urine Ketones (Negative) Urine Blood (Negative) Urine Nitrite (Negative) Urine Bilirubin (Negative) Urine Urobilinogen (<2.0) mg/dL Ur Leukocyte Esterase (Negative) Urine RBC (0-5) /hpf Urine WBC (0-5) /hpf Ur Squamous Epith Cells (0-4) /hpf Hyaline Casts (0-2) /lpf Urine Mucus (None) /hpf Urine Opiates Screen (NotDetected) Ur Oxycodone Screen (NotDetected) Urine Methadone Screen (NotDetected) Ur Barbiturates Screen (NotDetected) U Tricyclic Antidepress (NotDetected) Ur Phencyclidine Scrn (NotDetected) Ur Amphetamines Screen (NotDetected) U Methamphetamines Scrn (NotDetected) U Benzodiazepines Scrn (NotDetected) Urine Cocaine Screen (NotDetected) U Marijuana (THC) Screen (NotDetected) SARS-CoV-2 (PCR) (Not Detectd) Disposition Clinical Impression: Depression, Suicidal ideation Disposition: TRANSFER TO PSYCH HOSP/UNIT Condition: Stable Is patient prescribed a controlled substance at d/c from ED?: No Referrals: None,Stated [Primary Care Provider] - 1-2 days Time of Disposition: 22:36
[2025-04-29] MEDS: NICOTINE 21MG/24HR PATCH TRANSDERM STA (20:53)
[2025-04-29 22:03] LABS: Appearance,Urine Cloudy (Clear); Bilirubin,Urine Negative (Negative); Blood,Urine Negative (Negative); Color,Urine Yellow; Glucose,Urine (UA) Negative (Negative); Hyaline Casts,Urine 1 /lpf (0-2); Ketones,Urine Negative (Negative); Leukocyte Esterase,Urine Moderate (Negative); Mucus,Urine Rare /hpf; Nitrite,Urine Negative (Negative); PH, Urine 5.5 (5.0-8.0); Protein,Urine Trace (Negative); RBC,Urine 2 /hpf (0-5); Specific Gravity,Urine 1.027 (1.001-1.035); Squamous Epithelial Cell,Urine 9 /hpf (0-4); WBC,Urine 20 /hpf (0-5)
[2025-04-29 22:06] LABS: Amphetamine Screen,Urine Not Detected (NotDetected); Barbiturate Screen,Urine Not Detected (NotDetected); Benzodiazepines Screen,Urine Not Detected (NotDetected); Cocaine Screen,Urine Not Detected (NotDetected); Methadone Screen, Urine Not Detected (NotDetected); Opiate Screen,Urine Not Detected (NotDetected); Oxycodone Screen, Urine Not Detected (NotDetected); Phencyclidine Screen,Urine Not Detected (NotDetected); Tricyclic Antidepressant,Urine Not Detected (NotDetected); Urn Cannabinoid Scrn Not Detected (NotDetected)
[2025-04-29 22:25] LABS: Eosinophils % (A) 3.9 %; HCT 43.3 % (37.2-46.3); HGB 14.5 g/dL (12.0-15.0); Lymphocytes % (A) 21.7 %; MCH 30.5 pg (27.0-32.0); MCHC 33.5 g/dL (32.0-37.0); Mean Platelet Volume 10.4 fL (9.5-12.2); Monocytes # (A) 0.75 10*3/uL (0.20-1.00); Monocytes % (A) 7.4 %; Neutrophils # (A) 6.69 10*3/uL (1.80-7.70); Neutrophils % (A) 65.8 %; Platelet Count 291 10*3/uL (140-440); RBC 4.76 10*6/uL (4.10-5.20); RDW 16.4 % (11.5-14.5); WBC 10.16 10*3/uL (4.50-10.00)
[2025-04-29 22:40] LABS: ALT 32 U/L (4-34); AST 42 U/L (14-36); African American GFR (CKD) >90 (>60 ml/min/1.73 sqM); Albumin 4.1 g/dL (3.5-5.0); Alkaline Phosphatase 172 U/L (38-126); Anion Gap 13 mmol/L; Blood Urea Nitrogen 12 mg/dL (7-17); Calcium 9.7 mg/dL (8.4-10.2); Carbon Dioxide 23 mmol/L (22-30); Chloride 102 mmol/L (98-107); Glucose 223 mg/dL (74-99); Non-African American GFR(CKD) >90 (>60 ml/min/1.73 sqM); Potassium 3.8 mmol/L (3.5-5.1); Sodium 138 mmol/L (137-145); Total Bilirubin 0.6 mg/dL (0.2-1.3)
[2025-04-29] MEDS: LORazepam 1 MG TAB PO STA (23:18)
[2025-04-30] MEDS: NICOTINE GUM (POLACRILEX) 2 MG GUM BUCCAL STA (08:03)
[2025-04-30 08:28] VITALS: TEMP 98.3
[2025-04-30 08:32] LABS: Glucose,Whole Blood 170 mg/dL (70-110)
[2025-04-30] MEDS: ASPIRIN 325 MG TAB PO STA (09:06)
[2025-04-30] MEDS: NICOTINE 21MG/24HR PATCH TRANSDERM STA (09:53)
[2025-04-30 12:05] VITALS: BP 158/86; PULSE 96
== END 2025-04-30 12:13 ==
LOC: EC 18:48
DX: S60.811A Abrasion of right wrist, initial encounter (principal); F32.A Depression, unspecified; F17.290 Nicotine dependence, other tobacco product, uncomplicated; Z88.8 Allergy status to other drugs, medicaments and biological substances; Z11.52 Encounter for screening for COVID-19; X78.9XXA Intentional self-harm by unspecified sharp object, initial encounter
CPT/HCPCS: 82075; 36415 ×2; 80053; 85025; 81001; 80306; 87086; 87635; 99285; S4990 ×2